=== PATIENT | female | born 1950 | race Caucasian/White ===

== ENCOUNTER 2016-06-07 10:15 | Day surgery (SDC) | payer MEDICARE, BC ==
[2016-06-05 13:53] VITALS: BMI 36.8
[~2016-06-07 10:15] MED LIST: LACTATED RINGERS 1,000 ML IV SCH
[2016-06-07 11:53] VITALS: TEMP 97.7
[2016-06-07] MEDS ORDERED: LIDOCAINE 1% 20 ML VIAL (10MG/ML) FOR IV START INTRADERMA ONE (11:53)
[2016-06-07] MEDS ORDERED: LIDOCAINE 1% INJ 10MG/ML (20 ML MDV) ONE (12:07)
[2016-06-07] MEDS ORDERED: PROPOFOL 10 MG/ML 20 ML VIAL IV ONE (12:07)
--- NOTE | 2016-06-07 12:23 | P.PCN ---
Date of Procedure: 06/07/16 Procedure(s) Performed: BRIEF HISTORY: Patient is a 65-year-old pleasant white female, scheduled for an elective colonoscopy as a part of evaluation of chronic diarrhea for the last 3 weeks' duration. The patient started with acute onset of lower abdominal pain followed by bloody diarrhea of 1 day duration that happened 3 weeks ago. Her bleeding subsided however she continued to have persistent diarrhea with bowel movements anywhere from 5-6 a day. She also complains of intermittent lower abdominal discomfort. PROCEDURE PERFORMED: Colonoscopy with biopsy. PREOPERATIVE DIAGNOSIS: Rectal bleeding and chronic diarrhea. IV sedation per Anesthesia. PROCEDURE: After informed consent was obtained, the patient, was brought into the endoscopy unit. IV conscious sedation was administered by Anesthesia under continuous monitoring. Initially the Olympus CF-160 flexible video colonoscope was then inserted in the rectum, gradually advanced into the cecum without any difficulty. Careful examination was performed as the scope was gradually being withdrawn. Ileocecal valve and the appendiceal orifice were visualized and appeared normal. Prep was excellent. Mucosa of the cecum, ascending colon, transverse colon, descending colon, sigmoid colon, and rectum appeared normal. There were scattered sigmoid diverticula seen. There was a 5 mL polyp in the proximal rectum there was biopsied. Also random biopsies were done from the ascending and descending colon to rule out microscopic/collagenous colitis. Retroflexion was performed in the rectum and no lesions were seen. The patient tolerated the procedure well. IMPRESSION: 5 mm proximal rectal polyp status post removal by biopsy. Scattered sigmoid diverticulosis No evidence of colitis or colorectal neoplasia RECOMMENDATIONS: Findings of this examination were discussed with the patient as well as a family. She was advised to follow with the biopsy results. She can use [id number] Imodium as needed for her symptoms and she will be seen in the office in 3-4 weeks.
[2016-06-07 12:29] VITALS: RESP 18
[2016-06-07 12:41] VITALS: BP 147/85; PULSE 81
--- NOTE | 2016-06-12 08:53 | CDI ---
Dr. Liborio Owens, Due to new rules about charging for conscious sedation, we noted conflicting information about type of sedation between your procedure note (stating IV CONSCIOUS sedation under Procedure heading) and Anesthesia Record which states General anesthesia. Because the word CONSCIOUS now has a different meaning for billing, we need you to stop dictating conscious sedation when Anesthesia is involved on your cases. FOR THIS CASE, WE NEED YOU TO DO ADDENDUM TO YOUR PROCEDURE NOTE THAT SAYS "General anesthesia" instead of CONSCIOUS SEDATION. Thank you bruna much for your assistance with this important billing compliance documentation issue. Sincerely, Darrel Fofana--grant coordinator Adele Walsh MBA, [employer], [facility] Protection Engineer, Dwaine Joyce [phone] [facility] CENTERAnnie
--- NOTE | 2016-07-17 11:52 | OP ---
ADDENDUM: DATE OF SERVICE: 06/07/2016 SURGEON: JEAN PAUL ZACARIAS DO FINISHED CLOTH CHECKER: PREOPERATIVE DIAGNOSIS: POSTOPERATIVE DIAGNOSIS: OPERATION: ANESTHESIA: ESTIMATED BLOOD LOSS: SPECIMENS REMOVED: COMPLICATIONS: OPERATIVE FINDINGS: DESCRIPTION OF PROCEDURE: General anesthesia was utilized instead of IV conscious sedation.
== END 2016-06-07 12:56 | disposition home or self-care (01) ==
LOC: ORWHC2ENDO 10:15
PROVIDERS: ATTEND Internal Medicine Gastroenterology
DX: K62.1 Rectal polyp (principal); K52.839 Microscopic colitis, unspecified; K57.30 Diverticulosis of large intestine without perforation or abscess without bleeding; I10 Essential (primary) hypertension; E66.9 Obesity, unspecified; Z68.36 Body mass index [BMI] 36.0-36.9, adult; Z88.0 Allergy status to penicillin; Z79.82 Long term (current) use of aspirin; Z79.899 Other long term (current) drug therapy; Z87.891 Personal history of nicotine dependence; Z90.49 Acquired absence of other specified parts of digestive tract
CPT/HCPCS: 88305; 88313; 45380; J2001; J2704

== ENCOUNTER → 2016-11-13 | Outpatient (CLI) | payer MEDICARE, BC | END | disposition home or self-care (01) | LOC: LABWHC1 10:56 | PROVIDERS: ATTEND Otolaryngology | DX: K11.7 Disturbances of salivary secretion (principal) | CPT/HCPCS: 36415; 86235 ==

== ENCOUNTER 2016-12-11 08:16 | Day surgery (SDC) | payer MEDICARE, BC ==
[2016-12-06 16:07] VITALS: BMI 36.0
[~2016-12-11 08:16] MED LIST changes: +LIDOCAINE 1% 20 ML VIAL (10MG/ML) FOR IV START INTRADERMA PRN
[2016-12-11 08:46] VITALS: TEMP 97.9
[2016-12-11] MEDS ORDERED: LIDOCAINE 1% 20 ML VIAL (10MG/ML) FOR IV START INTRADERMA ONE (08:53)
[2016-12-11] MEDS ORDERED: PROPOFOL 10 MG/ML 20 ML VIAL IV ONE (09:10)
--- NOTE | 2016-12-11 09:22 | P.GSHP ---
History of Present Illness H&P Date: 12/11/16 Chief Complaint: GERD Patient here today for upper endoscopy. She is recently had some throat soreness. She had thrush. She was advised to have an upper endoscopy for these reasons. She admits to rare episodes of reflux. No significant heartburn. She is able lie flat while sleeping. Some intermittent abdominal pains. Past Medical History Past Medical History: COPD, Hypertension, Osteoarthritis (OA) Additional Past Medical History / Comment(s): HX DIVERTICULOSIS AND COLITIS,, HX POLYP, . STATES TOLD SHE HAS COPD. DDD, NECK PAIN,., ABD CRAMPING. History of Any Multi-Drug Resistant Organisms: None Reported Past Surgical History: Appendectomy, Hernia Repair, Hysterectomy, Joint Replacement Additional Past Surgical History / Comment(s): UMB. HERNIA WITH MESH., LEFT TOTAL KNEE, AYAN CATARACTS Past Anesthesia/Blood Transfusion Reactions: No Reported Reaction Past Psychological History: No Psychological Hx Reported Smoking Status: Former smoker Past Alcohol Use History: Rare Additional Past Alcohol Use History / Comment(s): QUIT SMOKING 05/2016, SMOKED 1PPD OFF AND ON SINCE AGE 18. Past Drug Use History: None Reported - Past Family History Mother Family Medical History: Cancer Medications and Allergies Home Medications Medication Instructions Recorded Confirmed Type Aspirin [Adult Low Dose Aspirin EC] 81 mg PO DAILY 06/05/16 12/11/16 History Indapamide [Lozol] 2.5 mg PO DAILY 06/05/16 12/11/16 History Zolpidem [Ambien] 10 mg PO HS PRN 06/05/16 12/11/16 History Balsalazide Disodium 1,500 mg PO BID-W/MEALS 12/06/16 12/11/16 History Allergies Allergy/AdvReac Type Severity Reaction Status Date / Time perfume Allergy Unknown Dyspnea Verified 12/11/16 08:48 amoxicillin [From Augmentin] Allergy Rash/Hives Verified 12/11/16 08:48 clavulanic acid Allergy Rash/Hives Verified 12/11/16 08:48 [From Augmentin] Surgical - Exam Vital Signs Temp Pulse Resp BP Pulse Ox 97.9 F 85 18 146/83 94 L 12/11/16 08:44 12/11/16 08:44 12/11/16 08:44 12/11/16 08:44 12/11/16 08:44 Physical exam: General: Well-developed, well-nourished HEENT: Normocephalic, sclerae nonicteric Abdomen: Nontender, nondistended Extremities: No edema Neuro: Alert and oriented Assessment and Plan (1) GERD (gastroesophageal reflux disease) Narrative/Plan: Will proceed with upper endoscopy. Status: Acute
--- NOTE | 2016-12-11 09:32 | P.PCN ---
Date of Procedure: 12/11/16 Procedure(s) Performed: Preoperative Dx: GERD Postoperative Dx: Minimal gastritis Procedure: EGD with Bx Anesthesia: Sedation Endoscopist: Dr. Prieto Specimens: Antrum Endoscopic Procedure: The patient was on the endoscopy table in the left decubitus position. The Olympus gastroscope was inserted into the oropharynx and passed under direct visualization to the region of the third portion of the duodenum. From that point the scope was slowly withdrawn inspecting all surfaces carefully. There were no neoplastic inflammatory or polypoid lesions throughout the duodenum. The pylorus was widely patent. The stomach was carefully inspected. There was minimal gastritis present. A biopsy of the antrum took place to rule out H. pylori. Retroflexion revealed a normal hiatus. The esophagus was then carefully examined. There were no neoplastic inflammatory or polypoid lesions throughout the visualized esophagus. The patient was then taken to the recovery room in stable condition per anesthesia guidelines. Recommendations: Await biopsy results. As needed antiacid therapy.
[2016-12-11 09:43] VITALS: RESP 16
[2016-12-11 09:58] VITALS: BP 120/83; PULSE 75
== END 2016-12-11 10:11 | disposition home or self-care (01) ==
LOC: ORWHC2ENDO 08:16
PROVIDERS: ATTEND Surgery
DX: K29.50 Unspecified chronic gastritis without bleeding (principal); K21.9 Gastro-esophageal reflux disease without esophagitis; Z87.19 Personal history of other diseases of the digestive system; Z86.010 Personal history of colon polyps; Z87.891 Personal history of nicotine dependence; J44.9 Chronic obstructive pulmonary disease, unspecified; I10 Essential (primary) hypertension; M19.90 Unspecified osteoarthritis, unspecified site; Z79.82 Long term (current) use of aspirin; Z79.899 Other long term (current) drug therapy; Z88.0 Allergy status to penicillin; Z91.09 Other allergy status, other than to drugs and biological substances
CPT/HCPCS: 88305; 88342; 43239; J2704

== ENCOUNTER → 2017-03-21 | Outpatient (CLI) | payer MEDICARE, BC ==
[2017-03-21 18:08] LABS: Blood Urea Nitrogen 19 mg/dL (7-17)
--- NOTE | 2017-03-23 16:33 | CT ---
EXAMINATION TYPE: CT abdomen pelvis w con DATE OF EXAM: 03/21/2017 HISTORY: Abdominal pain, distention and nausea. CT DLP: 1505.2mGycm Automated Exposure Control for Dose Reduction was Utilized. CONTRAST: CT scan of the abdomen and pelvis is performed with IV Contrast, patient injected with 100 mL of Omni paque 300. COMPARISON: None. FINDINGS: LUNG BASES: Minimal left basilar subsegmental atelectasis is seen. LIVER/GB: No significant abnormality is appreciated. No cholelithiasis or intrahepatic biliary ductal dilatation. PANCREAS: No significant abnormality is seen. No ductal dilatation. SPLEEN: No significant abnormality is seen. No splenomegaly. ADRENALS: Adrenal glands are mildly thickened without discrete nodularity, favored to represent adren al gland hyperplasia. KIDNEYS: 2 mm right upper pole nonobstructing renal calculus is incidentally noted as is a 3 mm left mid to lower pole renal calculus. No hydronephrosis. Kidneys enhance symmetrically. Kidneys excrete s ymmetrically. BOWEL: No dilatation or focal thickening. No evidence of bowel obstruction. UTERUS/ADNEXA: No gross abnormality seen. Ovaries are nonvisualized and may relate to atrophy or surg ical absence. LYMPH NODES: No greater than 1cm abdominal or pelvic lymph nodes are appreciated. OSSEOUS STRUCTURES: Moderate femoral acetabular arthropathy is seen bilaterally with subchondral cyst formation, joint space narrowing and opposing surface sclerosis. Moderate multilevel degenerative ch jorge luis of the thoracolumbar and lumbosacral spine are also noted. IMPRESSION: 1. No significant acute finding is seen to account for patient's clinical symptoms. 2. Bilateral nonobstructing renal calculi. 3. Symmetric thickening of the adrenal glands without discrete nodule, suggestive of adrenal gland hy perplasia. 4. Gallbladder is unremarkable on CT, however given the patient's symptoms HIDA scan with CCK could b e considered to evaluate for biliary dyskinesia and/or chronic cholecystitis.
== END ==
LOC: RADCTMAIN 17:30
PROVIDERS: ATTEND Internal Medicine Hematology & Oncology
DX: N20.0 Calculus of kidney (principal); E27.8 Other specified disorders of adrenal gland; Z88.1 Allergy status to other antibiotic agents
CPT/HCPCS: 82565; 84520; 74177; 36415; Q9967

== ENCOUNTER 2017-06-17 14:55 | Inpatient (IN) | payer MEDICARE, BC ==
--- NOTE | 2017-06-17 17:15 | XR ---
EXAMINATION TYPE: XR chest 2V DATE OF EXAM: 06/17/2017 COMPARISON: NONE HISTORY: Cough and congestion TECHNIQUE: Frontal and lateral views of the chest are obtained. FINDINGS: There is general coarsening of interstitial markings at heart size is normal. There is no pleural effusion. There are no hilar masses. Mediastinum appears normal. IMPRESSION: Coarse pulmonary markings. No pleural effusion or cardiomegaly. This probably relates to some interstitial pneumonia.
[2017-06-17] MEDS ORDERED: RX INFO: IV CONTRAST WAS GIVEN 1 EACH MISC MISCELLANE PRN (18:28)
[2017-06-17] MEDS ORDERED: VANCOMYCIN IV PER PHARMACY 1 EACH MISC MISCELLANE PRN (18:33)
[2017-06-17 18:39] LABS: ALT 41 U/L (9-52); AST 46 U/L (14-36); Albumin 4.4 g/dL (3.5-5.0); Alkaline Phosphatase 75 U/L (38-126); Anion Gap 14 mmol/L; Blood Urea Nitrogen 14 mg/dL (7-17); Calcium 9.6 mg/dL (8.4-10.2); Carbon Dioxide 27 mmol/L (22-30); Chloride 93 mmol/L (98-107); Glucose 166 mg/dL (74-99); Sodium 134 mmol/L (137-145); Total Protein 7.6 g/dL (6.3-8.2)
[2017-06-17 18:42] LABS: Basophils # (A) 0.1 k/uL (0-0.2); Basophils % (A) 0 %; Eosinophils # (A) 0.3 k/uL (0-0.7); Eosinophils % (A) 1 %; HCT 47.9 % (34.0-46.0); Lymphocytes # (A) 2.2 k/uL (1.0-4.8); Lymphocytes % (A) 7 %; MCH 31.4 pg (25.0-35.0); MCHC 33.5 g/dL (31.0-37.0); MCV 93.6 fL (80.0-100.0); Mean Platelet Volume 7.3; Monocytes % (A) 3 %; Neutrophils # (A) 26.8 k/uL (1.3-7.7); Neutrophils % (A) 88 %; Platelet Count 273 k/uL (150-450); RBC 5.11 m/uL (3.80-5.40); RDW 12.1 % (11.5-15.5)
[2017-06-17 18:45] LABS: WBC 30.5 k/uL (3.8-10.6)
--- NOTE | 2017-06-17 18:53 | P.PN ---
Progress Note - Text Progress Note Date: 06/17/17 Patient directly admitted after being seen in clinic today. She complains of shortness of breath and difficulty in breathing that started overnight and has progressively become worse. Initial septic workup placed, supportive care, antibiotics. Monitor vital signs closely and patients respiratory status. Consults placed for Infectious disease and Pulmonary. She has known history of CLL, Chest xray shows interstitial pneumonia, she has been on outpatient antibiotics for a UTI, and prior to that had recent infection in her lower lip that was removed by ENT, completed 14 days of antibiotics (patient unaware of name at this time). Full H and P to follow.
[2017-06-17] MEDS ORDERED: SODIUM CHLORIDE 0.9% 1,000 ML IV SCH (19:00)
[2017-06-17] MEDS: IPRATROPIUM-ALBUTEROL 3 ML NEB INHALATION SCH (19:04)
[2017-06-17] MEDS: DEXTROSE 5%-0.45% NACL 1,000 ML IV SCH (19:54)
[2017-06-17] MEDS ORDERED: VANCOMYCIN 2,000 MG in SODIUM CHLORIDE 0.9% 500 ML IVPB ONE (20:00)
[2017-06-17 20:28] LABS: Magnesium 1.5 mg/dL (1.6-2.3); Uric Acid 4.4 mg/dL (3.7-7.4)
[2017-06-17 20:46] LABS: Glucose,Whole Blood 165 mg/dL (75-99)
[2017-06-17] MEDS: ACETAMINOPHEN TAB 325 MG TAB PO PRN (21:37)
[2017-06-17] MEDS: INSULIN ASPART 100 UNIT/ML 1 ML 10 ML VIAL SQ SCH (21:38)
[2017-06-17] MEDS: NITROFURANTOIN MONOHYD/M-CRYST 100 MG CAP PO SCH (21:40)
[2017-06-17] MEDS: PANTOPRAZOLE 40 MG TABLET PO SCH (21:40)
[2017-06-17] MEDS: ZOLPIDEM 10 MG TAB PO PRN (21:44)
[2017-06-17 22:02] LABS: Appearance,Urine Clear (Clear); Bilirubin,Urine Negative (Negative); Blood,Urine Small (Negative); Color,Urine Yellow; Glucose,Urine (UA) Negative (Negative); Ketones,Urine Negative (Negative); Leukocyte Esterase,Urine Negative (Negative); Nitrite,Urine Negative (Negative); PH, Urine 6.5 (5.0-8.0); Protein,Urine Negative (Negative); RBC,Urine 2 /hpf (0-5); Specific Gravity,Urine 1.005 (1.001-1.035); Squamous Epithelial Cell,Urine <1 /hpf (0-4); Urobilinogen,Urine <2.0 mg/dL (<2.0); WBC,Urine 2 /hpf (0-5)
[2017-06-17] MEDS: methylPREDNISolone SOD SUCCI 125 MG/2 ML VIAL IV SCH (23:40)
[2017-06-18] MEDS ORDERED: PIPERACILLIN-TAZOBACTAM 3.375 GM in DEXTROSE/WATER 1 50ML.BAG IVPB SCH
[2017-06-18] MEDS: IPRATROPIUM-ALBUTEROL 3 ML NEB INHALATION SCH ×7 (00:52→23:15)
[2017-06-18] MEDS: PIPERACILLIN-TAZOBACTAM 3.375 GM VIAL IVPB SCH (01:40)
[2017-06-18] MEDS: VANCOMYCIN 1,750 MG in SODIUM CHLORIDE 0.9% 250 ML IVPB SCH ×2 (05:40→17:05)
[2017-06-18] MEDS: methylPREDNISolone SOD SUCCI 125 MG/2 ML VIAL IV SCH ×4 (05:40→23:06)
[2017-06-18 07:13] LABS: Glucose,Whole Blood 161 mg/dL (75-99)
[2017-06-18] MEDS: BALSALAZIDE DISODIUM 750 MG CAPSULE PO SCH ×2 (07:58→17:04)
[2017-06-18] MEDS: PANTOPRAZOLE 40 MG TABLET PO SCH ×2 (07:58→17:04)
[2017-06-18] MEDS: ASPIRIN 81 MG PO SCH (07:59)
[2017-06-18] MEDS: NITROFURANTOIN MONOHYD/M-CRYST 100 MG CAP PO SCH (07:59)
[2017-06-18] MEDS: INSULIN ASPART 100 UNIT/ML 1 ML 10 ML VIAL SQ SCH ×4 (07:59→21:36)
[2017-06-18 08:33] LABS: Basophils % (A) 0 %; Eosinophils # (A) 0.1 k/uL (0-0.7); Eosinophils % (A) 0 %; HCT 46.4 % (34.0-46.0); HGB 14.9 gm/dL (11.4-16.0); Lymphocytes # (A) 2.5 k/uL (1.0-4.8); Lymphocytes % (A) 10 %; MCH 30.4 pg (25.0-35.0); MCHC 32.1 g/dL (31.0-37.0); MCV 94.7 fL (80.0-100.0); Mean Platelet Volume 7.7; Monocytes # (A) 0.4 k/uL (0-1.0); Monocytes % (A) 2 %; Neutrophils # (A) 20.8 k/uL (1.3-7.7); Neutrophils % (A) 87 %; Platelet Count 273 k/uL (150-450); RDW 12.3 % (11.5-15.5); WBC 23.9 k/uL (3.8-10.6)
[2017-06-18 08:50] LABS: ALT 31 U/L (9-52); AST 36 U/L (14-36); Albumin 3.9 g/dL (3.5-5.0); Alkaline Phosphatase 79 U/L (38-126); Anion Gap 14 mmol/L; Blood Urea Nitrogen 12 mg/dL (7-17); Calcium 9.7 mg/dL (8.4-10.2); Carbon Dioxide 26 mmol/L (22-30); Chloride 100 mmol/L (98-107); Glucose 180 mg/dL (74-99); Potassium 3.7 mmol/L (3.5-5.1); Sodium 140 mmol/L (137-145); Total Bilirubin 0.6 mg/dL (0.2-1.3); Total Protein 6.9 g/dL (6.3-8.2)
[2017-06-18] MEDS ORDERED: INDAPAMIDE 2.5 MG TAB PO SCH (09:00)
[2017-06-18] MEDS ORDERED: PANTOPRAZOLE 40 MG/10 ML VIAL IVP SCH (09:00)
[2017-06-18] MEDS: ENOXAPARIN 40 MG/0.4 ML SYRINGE SQ SCH (09:46)
[2017-06-18] MEDS ORDERED: cefTRIAXone IN SWFI 1,000 MG/10 ML SYRINGE IVP SCH (10:00)
--- NOTE | 2017-06-18 10:36 | P.HPIM ---
History of Present Illness Patient is a pleasant 66-year-old female came in as a direct admit from 's office as she was hypoxic patient doesn't use any oxygen patient is presently on 3 L of oxygen. Patient does smoke actively. Patient is comparing of cough with yellowish greenish sputum production denied any fever chills patient is found to have a leukocytosis neutrophilic leukocytosis patient does have history of chronic lymphocytic leukemia. Patient was complaining of chills but no fever chest x-ray was done which showed a few scores pulmonary markings and concern for interstitial pneumonia because of which patient was admitted patient's leukocytosis improved patient was started on Zosyn which was later discontinued because of her penicillin ALLERGY and patient will be started on a to ceftriaxone and cefepime patient was started on vancomycin I do not believe it's less today but infectious disease was consulted , but infectious disease decide about antibiotics. Patient may need further evaluation for pulmonary embolism with a CAT scan of the chest although pulmonary was consulted because of which led pulmonary decide about the CAT scan. Patient doesn't have any significant wheezing does have diffuse fine crackles consistent with interstitial pneumonia Review of Systems REVIEW OF SYSTEMS: CONSTITUTIONAL: No fever, no malaise, no fatigue. HEENT: No recent visual problems or hearing problems. Denied any sore throat. CARDIOVASCULAR: No chest pain, orthopnea, PND, no palpitations, no syncope. PULMONARY: As described in HPI GASTROINTESTINAL: No diarrhea, no nausea, no vomiting, no abdominal pain. Normoactive bowel sounds. NEUROLOGICAL: No headaches, no weakness, no numbness. HEMATOLOGICAL: Denies any bleeding or petechiae. GENITOURINARY: Denies any burning micturition, frequency, or urgency. MUSCULOSKELETAL/RHEUMATOLOGICAL: Denies any joint pain, swelling, or any muscle pain. ENDOCRINE: Denies any polyuria or polydipsia. The rest of the 14-point review of systems is negative. Past Medical History Past Medical History: Cancer, COPD, Hypertension, Osteoarthritis (OA) Additional Past Medical History / Comment(s): HX DIVERTICULOSIS AND COLITIS,, HX colon POLYP, . STATES TOLD SHE HAS COPD. DDD, NECK PAIN, leukemia History of Any Multi-Drug Resistant Organisms: None Reported Past Surgical History: Appendectomy, Hernia Repair, Hysterectomy, Joint Replacement Additional Past Surgical History / Comment(s): UMB. HERNIA WITH MESH., LEFT TOTAL KNEE, AYAN CATARACTS, egd w/bx "neg" Past Anesthesia/Blood Transfusion Reactions: No Reported Reaction Smoking Status: Current every day smoker - Past Family History Mother Family Medical History: Cancer Father Family Medical History: Myocardial Infarction ([place]) Medications and Allergies Home Medications Medication Instructions Recorded Confirmed Type Aspirin [Adult Low Dose Aspirin EC] 81 mg PO DAILY 06/05/16 06/17/17 History Indapamide [Lozol] 2.5 mg PO DAILY 06/05/16 06/17/17 History Zolpidem [Ambien] 10 mg PO HS PRN 06/05/16 06/17/17 History Balsalazide Disodium 1,500 mg PO BID-W/MEALS 12/06/16 06/17/17 History Nitrofurantoin Monohyd/M-Cryst 100 mg PO Q12HR 06/17/17 06/17/17 History [Macrobid] Omeprazole [PriLOSEC] 40 mg PO BID 06/17/17 06/17/17 History Allergies Allergy/AdvReac Type Severity Reaction Status Date / Time perfume Allergy Unknown Dyspnea Verified 06/17/17 18:36 amoxicillin [From Augmentin] Allergy Rash/Hives Verified 06/17/17 18:36 clavulanic acid Allergy Rash/Hives Verified 06/17/17 18:36 [From Augmentin] Physical Exam Vitals: Vital Signs Temp Pulse Pulse Resp BP Pulse Ox 06/18/17 07:26 96.9 F L 87 17 139/70 96 06/18/17 07:02 110 H 06/18/17 06:52 108 H 06/18/17 06:00 97.5 F L 107 H 17 134/85 93 L 06/18/17 04:46 116 H 06/18/17 04:34 116 H 06/18/17 01:02 112 H 06/18/17 00:52 112 H 06/17/17 23:11 19 06/17/17 22:43 98.2 F 116 H 17 168/69 98 06/17/17 19:17 112 H 06/17/17 19:04 115 H 93 L 06/17/17 18:04 99.1 F 102 H 18 193/74 92 L Intake and Output 06/17/17 06/18/17 06/18/17 22:59 06:59 14:59 Intake Total 1050 1350 Balance 1050 1350 Intake: Intake, IV Titration 550 1100 Amount Sodium Chloride 0.9% 1, 300 600 000 ml @ 75 mls/hr IV . [id number] [facility] Rx#:[id number] Vancomycin 1,750 mg In 250 Sodium Chloride 0.9% 250 ml @ 125 mls/hr IVPB Q12H [facility] Rx#:[id number] Vancomycin 2,000 mg In 500 Sodium Chloride 0.9% 500 ml @ 167 mls/hr IVPB ONCE ONE Rx#:[id number] Oral 500 250 Other: Voiding Method Toilet # Voids 2 2 Weight 98 kg 98 kg PHYSICAL EXAMINATION: GENERAL: The patient is alert and oriented x3, not in any acute distress. Well developed, well nourished. HEENT: Pupils are round and equally reacting to light. EOMI. No scleral icterus. No conjunctival pallor. Normocephalic, atraumatic. No pharyngeal erythema. No thyromegaly. CARDIOVASCULAR: S1 and S2 present. No murmurs, rubs, or gallops. PULMONARY: As fine crackles in the posterior aspect of bilateral lungs predominantly in the right posterior lung kumar ABDOMEN: Soft, nontender, nondistended, normoactive bowel sounds. No palpable organomegaly. MUSCULOSKELETAL: No joint swelling or deformity. EXTREMITIES: No cyanosis, clubbing, or pedal edema. NEUROLOGICAL: Gross neurological examination did not reveal any focal deficits. SKIN: No rashes. Results CBC & Chem 7: 06/18/17 07:31 06/18/17 07:31 Labs: Abnormal Lab Results - Last 24 Hours (Table) 06/17/17 06/17/17 06/17/17 Range/Units 18:01 18:01 18:57 WBC 30.5 H* (3.8-10.6) k/uL Hct 47.9 H (34.0-46.0) % Neutrophils # 26.8 H (1.3-7.7) k/uL Sodium 134 L (137-145) mmol/L Chloride 93 L (98-107) mmol/L Glucose 166 H (74-99) mg/dL POC Glucose (mg/dL) (75-99) mg/dL Magnesium 1.5 L (1.6-2.3) mg/dL AST 46 H (14-36) U/L Lactate Dehydrogenase 694 H (313-618) U/L Urine Blood (Negative) 06/17/17 06/17/17 06/18/17 Range/Units 20:42 21:45 07:11 WBC (3.8-10.6) k/uL Hct (34.0-46.0) % Neutrophils # (1.3-7.7) k/uL Sodium (137-145) mmol/L Chloride (98-107) mmol/L Glucose (74-99) mg/dL POC Glucose (mg/dL) 165 H 161 H (75-99) mg/dL Magnesium (1.6-2.3) mg/dL AST (14-36) U/L Lactate Dehydrogenase (313-618) U/L Urine Blood Small H (Negative) 06/18/17 06/18/17 Range/Units 07:31 07:31 WBC 23.9 H (3.8-10.6) k/uL Hct 46.4 H (34.0-46.0) % Neutrophils # 20.8 H (1.3-7.7) k/uL Sodium (137-145) mmol/L Chloride (98-107) mmol/L Glucose 180 H (74-99) mg/dL POC Glucose (mg/dL) (75-99) mg/dL Magnesium (1.6-2.3) mg/dL AST (14-36) U/L Lactate Dehydrogenase (313-618) U/L Urine Blood (Negative) Thrombosis Risk Factor Assmnt - Choose All That Apply Each Factor Represents 1 point: Abnormal pulmonary function (COPD) Each Risk Factor Represents 2 Points: Age 61-74 years Other congenital or acquired thrombophilia - If yes, enter type in comment: No Thrombosis Risk Factor Assessment Total Risk Factor Score: 3 Thrombosis Risk Factor Assessment Level: Moderate Risk Assessment and Plan Plan: -Hypoxemia and acute hypoxic respiratory failure possibility of interstitial pneumonia, patient was started an above-mentioned antibiotics. Infectious disease and pulmonary were consulted from oncology service. Patient may need a CAT scan to rule out pulmonary embolism. Depression of which will be left to pulmonary service. -Chronic lymphocytic leukemia -COPD without any acute exacerbation - gastroesophageal reflux disease -History of smoking active smoking.
--- NOTE | 2017-06-18 11:34 | P.CONS ---
History of Present Illness - Reason for Consult Consult date: 06/18/17 Febrile, CLL, pneumonia, UTI - History of Present Illness This is a 66-year-old female who was recently diagnosed with CLL. She states she has had her second appointment with Dr. Worthington yesterday and after checking blood work she was told to come in the hospital. She has history that one month ago she had a sore on her lip that she thought was just a cold sore but went to Dr. Schmitz and he removed 2 masses that ended up coming back as benign and one was a stone. She was placed on antibiotics for that. The following week she had some abdominal pain went to the clinic and was given Macrobid bid for urinary tract infection for 10 day course and she has 2 half days left. Patient states that she feels tired and has had sweats at nighttime for the past 2 nights. She has a cough that is mostly nonproductive but occasionally clear sputum. She also has decreased appetite with nausea without vomiting. She has a history of frequent episodes of bronchitis and usually something like perfumes or plants will cause exacerbation. Patient was directly admitted to the [facility] floor was found to have a temperature max of 99.1, white count was 30.5, heart rate 112 to 1:15. Magnesium was 1.5, creatinine 0.57, AST 46, LDH 694, influenza testing was negative. Urinalysis was clear, blood small. Chest x-ray showed coarse pulmonary markings. No pleural effusion or cardiomegaly. Probable interstitial pneumonia. There is a consult in place with pulmonary medicine and hospitalist for medical management. Review of Systems All systems: negative Constitutional: Reports anorexia, Reports fatigue, Reports malaise, Reports poor appetite, Reports sweats, Reports weakness, Denies chills, Denies fever Eyes: denies blurred vision, denies pain Ears, nose, mouth and throat: Denies dental pain, Denies headache, Denies mouth pain, Denies sore throat Cardiovascular: Reports lightheadedness, Denies chest pain, Denies decreased exercise tolerance, Denies dyspnea on exertion, Denies edema, Denies leg edema, Denies shortness of breath, Denies syncope Respiratory: Reports cough, Reports cough with sputum, Denies dyspnea, Denies excessive sputum, Denies hemoptysis, Denies home oxygen, Denies wheezing Gastrointestinal: Reports nausea, Denies abdominal pain, Denies diarrhea, Denies vomiting Genitourinary: Denies dysuria, Denies hematuria, Denies urgency Musculoskeletal: Denies myalgias Integumentary: Denies pruritus, Denies rash Neurological: Denies numbness, Denies weakness Psychiatric: Denies anxiety, Denies depression Endocrine: Denies fatigue, Denies weight change Past Medical History Past Medical History: Cancer, COPD, Hypertension, Osteoarthritis (OA) Additional Past Medical History / Comment(s): HX DIVERTICULOSIS AND COLITIS,, HX colon POLYP, . STATES TOLD SHE HAS COPD. DDD, NECK PAIN, leukemia History of Any Multi-Drug Resistant Organisms: None Reported Past Surgical History: Appendectomy, Hernia Repair, Hysterectomy, Joint Replacement Additional Past Surgical History / Comment(s): UMB. HERNIA WITH MESH., LEFT TOTAL KNEE, AYAN CATARACTS, egd w/bx "neg" Past Anesthesia/Blood Transfusion Reactions: No Reported Reaction Smoking Status: Current every day smoker Additional Past Alcohol Use History / Comment(s): Patient is a smoker on and off since age 18 and currently smoking 8 cigarettes per day. She recently quit for 4 months. No illicit drug use. No alcohol abuse. She worked in [employer] and is currently retired. - Past Family History Mother Family Medical History: Cancer Father Family Medical History: Myocardial Infarction ([place]) Medications and Allergies Home Medications Medication Instructions Recorded Confirmed Type Aspirin [Adult Low Dose Aspirin EC] 81 mg PO DAILY 06/05/16 06/17/17 History Indapamide [Lozol] 2.5 mg PO DAILY 06/05/16 06/17/17 History Zolpidem [Ambien] 10 mg PO HS PRN 06/05/16 06/17/17 History Balsalazide Disodium 1,500 mg PO BID-W/MEALS 12/06/16 06/17/17 History Nitrofurantoin Monohyd/M-Cryst 100 mg PO Q12HR 06/17/17 06/17/17 History [Macrobid] Omeprazole [PriLOSEC] 40 mg PO BID 06/17/17 06/17/17 History Allergies Allergy/AdvReac Type Severity Reaction Status Date / Time perfume Allergy Unknown Dyspnea Verified 06/17/17 18:36 amoxicillin [From Augmentin] Allergy Rash/Hives Verified 06/17/17 18:36 clavulanic acid Allergy Rash/Hives Verified 06/17/17 18:36 [From Augmentin] Physical Exam Vitals: Vital Signs Temp Pulse Pulse Resp BP Pulse Ox 06/18/17 07:26 96.9 F L 87 17 139/70 96 06/18/17 07:02 110 H 06/18/17 06:52 108 H 06/18/17 06:00 97.5 F L 107 H 17 134/85 93 L 06/18/17 04:46 116 H 06/18/17 04:34 116 H 06/18/17 01:02 112 H 06/18/17 00:52 112 H 06/17/17 23:11 19 06/17/17 22:43 98.2 F 116 H 17 168/69 98 06/17/17 19:17 112 H 06/17/17 19:04 115 H 93 L 06/17/17 18:04 99.1 F 102 H 18 193/74 92 L Intake and Output 06/17/17 06/18/17 06/18/17 22:59 06:59 14:59 Intake Total 1050 1350 Balance 1050 1350 Intake: Intake, IV Titration 550 1100 Amount Sodium Chloride 0.9% 1, 300 600 000 ml @ 75 mls/hr IV . [id number] [facility] Rx#:[id number] Vancomycin 1,750 mg In 250 Sodium Chloride 0.9% 250 ml @ 125 mls/hr IVPB Q12H [facility] Rx#:[id number] Vancomycin 2,000 mg In 500 Sodium Chloride 0.9% 500 ml @ 167 mls/hr IVPB ONCE ONE Rx#:[id number] Oral 500 250 Other: Voiding Method Toilet # Voids 2 2 Weight 98 kg 98 kg Gen: This is a 66-year-old female. She is sitting up in bed and appears to be comfortable. She does not appear to be in any acute respiratory distress. HEENT: Head is atraumatic, normocephalic. Pupils equal, round. Sclerae is anicteric. Conjunctiva pink. Mucous members of the mouth are moist. Lesions on her lower lip are completely healed with no signs of infection. NECK: Supple. No JVD. No lymphadenopathy. No thyromegaly. LUNGS: Bilateral lower rhonchi increased on the right. No intercostal retractions. HEART: Regular rate and rhythm. No murmur. ABDOMEN: Soft. Bowel sounds are present. No masses. No tenderness. EXTREMITIES: No pedal edema. No calf tenderness. Dorsalis pedis +2 bilaterally. NEUROLOGICAL: Patient is awake, alert and oriented x3. Cranial nerves 2 through 12 are grossly intact. Results Results: Laboratory Results WBC 23.9 k/uL (3.8-10.6) H 06/18/17 07:31 RBC 4.90 m/uL (3.80-5.40) 06/18/17 07:31 Hgb 14.9 gm/dL (11.4-16.0) 06/18/17 07:31 Hct 46.4 % (34.0-46.0) H 06/18/17 07:31 MCV 94.7 fL (80.0-100.0) 06/18/17 07:31 MCH 30.4 pg (25.0-35.0) 06/18/17 07:31 MCHC 32.1 g/dL (31.0-37.0) 06/18/17 07:31 RDW 12.3 % (11.5-15.5) 06/18/17 07:31 Plt Count 273 k/uL (150-450) 06/18/17 07:31 Neutrophils % 87 % 06/18/17 07:31 Lymphocytes % 10 % 06/18/17 07:31 Monocytes % 2 % 06/18/17 07:31 Eosinophils % 0 % 06/18/17 07:31 Basophils % 0 % 06/18/17 07:31 Neutrophils # 20.8 k/uL (1.3-7.7) H 06/18/17 07:31 Lymphocytes # 2.5 k/uL (1.0-4.8) 06/18/17 07:31 Monocytes # 0.4 k/uL (0-1.0) 06/18/17 07:31 Eosinophils # 0.1 k/uL (0-0.7) 06/18/17 07:31 Basophils # 0.0 k/uL (0-0.2) 06/18/17 07:31 Sodium 140 mmol/L (137-145) 06/18/17 07:31 Potassium 3.7 mmol/L (3.5-5.1) 06/18/17 07:31 Chloride 100 mmol/L (98-107) 06/18/17 07:31 Carbon Dioxide 26 mmol/L (22-30) 06/18/17 07:31 Anion Gap 14 mmol/L 06/18/17 07:31 BUN 12 mg/dL (7-17) 06/18/17 07:31 Creatinine 0.52 mg/dL (0.52-1.04) 06/18/17 07:31 Est GFR (CKD-EPI)AfAm >90 (>60 ml/min/1.73 sqM) 06/18/17 07:31 Est GFR (CKD-EPI)NonAf >90 (>60 ml/min/1.73 sqM) 06/18/17 07:31 Glucose 180 mg/dL (74-99) H 06/18/17 07:31 POC Glucose (mg/dL) 161 mg/dL (75-99) H 06/18/17 07:11 POC Glu Fire Extinguisher Mechanic ID Michelle Jacob 06/18/17 07:11 Plasma Lactic Acid Jose 1.5 mmol/L (0.7-2.0) 06/17/17 18:57 Uric Acid 4.4 mg/dL (3.7-7.4) 06/17/17 18:57 Calcium 9.7 mg/dL (8.4-10.2) 06/18/17 07:31 Magnesium 1.5 mg/dL (1.6-2.3) L 06/17/17 18:57 Total Bilirubin 0.6 mg/dL (0.2-1.3) 06/18/17 07:31 AST 36 U/L (14-36) 06/18/17 07:31 ALT 31 U/L (9-52) 06/18/17 07:31 Alkaline Phosphatase 79 U/L (38-126) 06/18/17 07:31 Lactate Dehydrogenase 694 U/L (313-618) H 06/17/17 18:57 Total Protein 6.9 g/dL (6.3-8.2) 06/18/17 07:31 Albumin 3.9 g/dL (3.5-5.0) 06/18/17 07:31 Urine Color Yellow 06/17/17 21:45 Urine Appearance Clear (Clear) 06/17/17 21:45 Urine pH 6.5 (5.0-8.0) 06/17/17 21:45 Ur Specific [place] 1.005 (1.001-1.035) 06/17/17 21:45 Urine Protein Negative (Negative) 06/17/17 21:45 Urine Glucose (UA) Negative (Negative) 06/17/17 21:45 Urine Ketones Negative (Negative) 06/17/17 21:45 Urine Blood Small (Negative) H 06/17/17 21:45 Urine Nitrite Negative (Negative) 06/17/17 21:45 Urine Bilirubin Negative (Negative) 06/17/17 21:45 Urine Urobilinogen <2.0 mg/dL (<2.0) 06/17/17 21:45 Ur Leukocyte Esterase Negative (Negative) 06/17/17 21:45 Urine RBC 2 /hpf (0-5) 06/17/17 21:45 Urine WBC 2 /hpf (0-5) 06/17/17 21:45 Ur Squamous Epith Cells <1 /hpf (0-4) 06/17/17 21:45 Influenza Type A RNA Not Detected (Not Detectd) 06/17/17 20:07 Influenza Type B (PCR) Not Detected (Not Detectd) 06/17/17 20:07 CBC & Chem 7: 06/18/17 07:31 06/19/17 07:07 Labs: Abnormal Lab Results - Last 24 Hours (Table) 06/17/17 06/17/17 06/17/17 Range/Units 18:01 18:01 18:57 WBC 30.5 H* (3.8-10.6) k/uL Hct 47.9 H (34.0-46.0) % Neutrophils # 26.8 H (1.3-7.7) k/uL Sodium 134 L (137-145) mmol/L Chloride 93 L (98-107) mmol/L Glucose 166 H (74-99) mg/dL POC Glucose (mg/dL) (75-99) mg/dL Magnesium 1.5 L (1.6-2.3) mg/dL AST 46 H (14-36) U/L Lactate Dehydrogenase 694 H (313-618) U/L Urine Blood (Negative) 06/17/17 06/17/17 06/18/17 Range/Units 20:42 21:45 07:11 WBC (3.8-10.6) k/uL Hct (34.0-46.0) % Neutrophils # (1.3-7.7) k/uL Sodium (137-145) mmol/L Chloride (98-107) mmol/L Glucose (74-99) mg/dL POC Glucose (mg/dL) 165 H 161 H (75-99) mg/dL Magnesium (1.6-2.3) mg/dL AST (14-36) U/L Lactate Dehydrogenase (313-618) U/L Urine Blood Small H (Negative) 06/18/17 06/18/17 Range/Units 07:31 07:31 WBC 23.9 H (3.8-10.6) k/uL Hct 46.4 H (34.0-46.0) % Neutrophils # 20.8 H (1.3-7.7) k/uL Sodium (137-145) mmol/L Chloride (98-107) mmol/L Glucose 180 H (74-99) mg/dL POC Glucose (mg/dL) (75-99) mg/dL Magnesium (1.6-2.3) mg/dL AST (14-36) U/L Lactate Dehydrogenase (313-618) U/L Urine Blood (Negative) Assessment and Plan Plan: This is a 66-year-old female with history of CLL on the care of Dr. Sierra. She is not on chemotherapy. She has had recent treatment for benign masses in the lower lip status post resection and antibiotic course. Most recently treated for urinary tract infection with Macrobid. Patient presents with sepsis with leukocytosis and tachycardia secondary to pneumonia. She has been started on vancomycin, Solu-Medrol and continued on Macrobid. Antibiotics will be changed to Levaquin only. Continue supportive care. Further recommendations as patient progresses. The above dictated assessment and findings were discussed with Dr. Chandler. The impression and plan of care have been directed as dictated. Alejandra Florentino nurse practitioner acting as scribe for Dr. Chandler.
[2017-06-18 11:59] LABS: Glucose,Whole Blood 174 mg/dL (75-99)
--- NOTE | 2017-06-18 12:37 | P.CNPUL ---
History of Present Illness Consult date: 06/18/17 Reason for consult: dyspnea, cough, COPD, hypoxemia, pneumonia, abnormal CXR/CT Chief complaint: Shortness of breath and cough History of present illness: Consult dated 06/18/2017 This is a 66-year-old female who was seen by the oncologist yesterday in his office. The patient apparently has a recent diagnosis of chronic lymphocytic leukemia and was going to talk to the oncologist about treatment options. Apparently when she arrived in the office, she was short of breath. Her saturations were low. She was coughing up producing yellow-green phlegm. She apparently also just a lot of chest congestion. For that reason, she was sent over to the hospital as a direct admission. She was started on antibiotics. I' m asked to see her for possible pneumonia. She is a heavy smoker. She's been smoking a number of years. The patient has quit on and off. Anyway the patient 's chest x-ray showed a possible minimal infiltrate in the right lower lobe. It was certainly not very impressive. In addition, her cough was reminiscent of somebody with tracheobronchomalacia. Anyway, the patient is here for our evaluation. I did tell her that the evaluation and treatment with consist of 2 things, acute treatment of what appears to be a COPD exacerbation complicated by purulent tracheobronchitis and possible bronchopneumonia right lower lobe and also treatment for COPD which would better assessed in the outpatient setting. 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 Past Medical History Past Medical History: Cancer, COPD, Hypertension, Osteoarthritis (OA) Additional Past Medical History / Comment(s): HX DIVERTICULOSIS AND COLITIS,, HX colon POLYP, . STATES TOLD SHE HAS COPD. DDD, NECK PAIN, leukemia History of Any Multi-Drug Resistant Organisms: None Reported Past Surgical History: Appendectomy, Hernia Repair, Hysterectomy, Joint Replacement Additional Past Surgical History / Comment(s): UMB. HERNIA WITH MESH., LEFT TOTAL KNEE, AYAN CATARACTS, egd w/bx "neg" Past Anesthesia/Blood Transfusion Reactions: No Reported Reaction Smoking Status: Current every day smoker Additional Past Alcohol Use History / Comment(s): Patient is a smoker on and off since age 18 and currently smoking 8 cigarettes per day. She recently quit for 4 months. No illicit drug use. No alcohol abuse. 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 - Past Family History Mother Family Medical History: Cancer Father Family Medical History: Myocardial Infarction ([place]) Medications and Allergies Home Medications Medication Instructions Recorded Confirmed Type Aspirin [Adult Low Dose Aspirin EC] 81 mg PO DAILY 06/05/16 06/17/17 History Indapamide [Lozol] 2.5 mg PO DAILY 06/05/16 06/17/17 History Zolpidem [Ambien] 10 mg PO HS PRN 06/05/16 06/17/17 History Balsalazide Disodium 1,500 mg PO BID-W/MEALS 12/06/16 06/17/17 History Nitrofurantoin Monohyd/M-Cryst 100 mg PO Q12HR 06/17/17 06/17/17 History [Macrobid] Omeprazole [PriLOSEC] 40 mg PO BID 06/17/17 06/17/17 History Allergies Allergy/AdvReac Type Severity Reaction Status Date / Time perfume Allergy Unknown Dyspnea Verified 06/17/17 18:36 amoxicillin [From Augmentin] Allergy Rash/Hives Verified 06/17/17 18:36 clavulanic acid Allergy Rash/Hives Verified 06/17/17 18:36 [From Augmentin] Physical Exam Osteopathic Statement: *. No significant issues noted on an osteopathic structural exam other than those noted in the History and Physical/Consult. Vitals: Vital Signs Temp Pulse Pulse Resp BP Pulse Ox 06/18/17 11:06 104 H 06/18/17 11:00 97.0 F L 73 20 109/59 95 06/18/17 10:56 104 H 06/18/17 07:26 96.9 F L 87 17 139/70 96 06/18/17 07:02 110 H 06/18/17 06:52 108 H 06/18/17 06:00 97.5 F L 107 H 17 134/85 93 L 06/18/17 04:46 116 H 06/18/17 04:34 116 H 06/18/17 01:02 112 H 06/18/17 00:52 112 H 06/17/17 23:11 19 06/17/17 22:43 98.2 F 116 H 17 168/69 98 06/17/17 19:17 112 H 06/17/17 19:04 115 H 93 L 06/17/17 18:04 99.1 F 102 H 18 193/74 92 L Intake and Output 06/17/17 06/18/17 06/18/17 22:59 06:59 14:59 Intake Total 1050 1350 Balance 1050 1350 Intake: Intake, IV Titration 550 1100 Amount Sodium Chloride 0.9% 1, 300 600 000 ml @ 75 mls/hr IV . [id number] [facility] Rx#:[id number] Vancomycin 1,750 mg In 250 Sodium Chloride 0.9% 250 ml @ 125 mls/hr IVPB Q12H [facility] Rx#:[id number] Vancomycin 2,000 mg In 500 Sodium Chloride 0.9% 500 ml @ 167 mls/hr IVPB ONCE ONE Rx#:[id number] Oral 500 250 Other: Voiding Method Toilet # Voids 2 2 Weight 98 kg 98 kg No acute distress, oriented 3. Frequent barking congested vibratory cough reminiscent of tracheomalacia. HEENT examination is grossly unremarkable. Mucous membranes are moist. No oral lesions. Neck supple. Full range of motion. No adenopathy thyromegaly or neck vein distention. Cardiovascular examination reveals regular rhythm rate. S1-S2 normal. No S3 or S4. No discernible murmur noted. Lungs reveal diffuse coarse rhonchi. Breath sounds are equal but diminished throughout. Slight prolongation on forced maneuver. No crackles. Some expiratory wheezes noted. Abdomen soft bowel sounds are heard. No masses or tenderness. Extremities are intact. No cyanosis clubbing or edema. Skin is without rash or lesion. Neurologic examination is brief but nonfocal. Results - Laboratory Findings CBC and BMP: 06/18/17 07:31 06/18/17 07:31 Abnormal lab findings: Abnormal Labs 06/17/17 06/17/17 06/17/17 18:01 18:01 18:57 WBC 30.5 H* Hct 47.9 H Neutrophils # 26.8 H Sodium 134 L Chloride 93 L Glucose 166 H POC Glucose (mg/dL) Magnesium 1.5 L AST 46 H Lactate Dehydrogenase 694 H Urine Blood 06/17/17 06/17/17 06/18/17 20:42 21:45 07:11 WBC Hct Neutrophils # Sodium Chloride Glucose POC Glucose (mg/dL) 165 H 161 H Magnesium AST Lactate Dehydrogenase Urine Blood Small H 06/18/17 06/18/17 06/18/17 07:31 07:31 11:58 WBC 23.9 H Hct 46.4 H Neutrophils # 20.8 H Sodium Chloride Glucose 180 H POC Glucose (mg/dL) 174 H Magnesium AST Lactate Dehydrogenase Urine Blood - Diagnostic Findings Chest x-ray: image reviewed (Labs x-rays and medications are all reviewed.) Assessment and Plan Assessment: Assessment COPD exacerbation complicated by purulent tracheobronchitis and possible bronchopneumonia right lower lobe History of recently diagnosed chronic lymphocytic leukemia History of hypertension DJD by history History of diverticular disease and colitis Previous history of hernia repair, hysterectomy, joint replacement Previous history of heavy tobacco use Plan: Plan dated 06/18/2017 The patient's medications x-rays and labs are reviewed. She may have a minimal infiltrate at the right lower lobe. She certainly has COPD from previous heavy tobacco use. She also may have some tracheobronchomalacia. Her treatment will consist of an acute phase here in the hospital and then chronic phase in the office with PFTs and evaluation. Additional recommendations and suggestions are forthcoming. Recurrent sure to stop smoking. We counseled her to stop smoking. Time with Patient: Greater than 30
[2017-06-18] MEDS: DEXTROSE 5%-0.45% NACL 1,000 ML IV SCH ×2 (12:48→21:36)
[2017-06-18] MEDS: LEVOFLOXACIN 750MG-D5W PMX 750 MG in DEXTROSE/WATER 1 150ML.BAG IVPB SCH (12:48)
[2017-06-18] MEDS: ACETAMINOPHEN TAB 325 MG TAB PO PRN (15:30)
[2017-06-18 17:19] LABS: Glucose,Whole Blood 195 mg/dL (75-99)
--- NOTE | 2017-06-18 17:59 | P.CONS ---
History of Present Illness - Reason for Consult Consult date: 06/18/17 CLL Requesting physician: Lorna Ureña - Chief Complaint Shortness of Breath, Fever - History of Present Illness Kari was originally referred to Dr. Hartmann for evaluation of chronic Leukocytosis which was present for at least 2-3 years and unchanged. She was found to have Lymphocytic colitis and gastritis, denies fever or chills but admitted having moderate night sweats. She later was diagnosed with CLL, she has been on surveillance since, not requiring treatment. She presented to office yesterday for her regular scheduled follow-up, she started the night prior with a cough and increased shortness of breath, and by the time she presented to the clinic was severely short of breath requiring oxygen to hold her saturation above 90%. She has never required oxygen in the past. Ashley had a procedure performed three weeks ago on her lower lips and was on antibiotics for this, more recently seen by her PCP for a UTI and has taken 5 days of antibiotic of 10 for this. Treatment with Nifuratoin. She has a productive cough , low grade fever. Chest xray reveals interstitial pneumonia and she was sent to hospital directly admitted and started on supportive care breathing treatments, vancomycin, zosyn, steroids, PPI. A full septic work-up was performed prior to antibiotic initiation. Today during follow-up she is doing much better, her lungs sound better, requiring less oxygen and fevers have improved. Review of Systems A 14 point review of systems assessed and completed and all negative except HPI Past Medical History Past Medical History: Cancer, COPD, Hypertension, Osteoarthritis (OA) Additional Past Medical History / Comment(s): HX DIVERTICULOSIS AND COLITIS,, HX colon POLYP, . STATES TOLD SHE HAS COPD. DDD, NECK PAIN, leukemia History of Any Multi-Drug Resistant Organisms: None Reported Past Surgical History: Appendectomy, Hernia Repair, Hysterectomy, Joint Replacement Additional Past Surgical History / Comment(s): UMB. HERNIA WITH MESH., LEFT TOTAL KNEE, AYAN CATARACTS, egd w/bx "neg" Past Anesthesia/Blood Transfusion Reactions: No Reported Reaction Smoking Status: Current every day smoker Additional Past Alcohol Use History / Comment(s): Patient is a smoker on and off since age 18 and currently smoking 8 cigarettes per day. She recently quit for 4 months. No illicit drug use. No alcohol abuse. 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 - Past Family History Mother Family Medical History: Cancer Father Family Medical History: Myocardial Infarction ([place]) Medications and Allergies Home Medications Medication Instructions Recorded Confirmed Type Aspirin [Adult Low Dose Aspirin EC] 81 mg PO DAILY 06/05/16 06/17/17 History Indapamide [Lozol] 2.5 mg PO DAILY 06/05/16 06/17/17 History Zolpidem [Ambien] 10 mg PO HS PRN 06/05/16 06/17/17 History Balsalazide Disodium 1,500 mg PO BID-W/MEALS 12/06/16 06/17/17 History Nitrofurantoin Monohyd/M-Cryst 100 mg PO Q12HR 06/17/17 06/17/17 History [Macrobid] Omeprazole [PriLOSEC] 40 mg PO BID 06/17/17 06/17/17 History Allergies Allergy/AdvReac Type Severity Reaction Status Date / Time perfume Allergy Unknown Dyspnea Verified 06/17/17 18:36 amoxicillin [From Augmentin] Allergy Rash/Hives Verified 06/17/17 18:36 clavulanic acid Allergy Rash/Hives Verified 06/17/17 18:36 [From Augmentin] Physical Exam Vitals: Vital Signs Temp Pulse Pulse Pulse Resp BP Pulse Ox 06/18/17 15:25 104 H 06/18/17 15:14 100 06/18/17 15:00 97.8 F 83 16 163/73 94 L 06/18/17 11:06 104 H 06/18/17 11:00 97.0 F L 73 20 109/59 95 06/18/17 10:56 104 H 06/18/17 07:26 96.9 F L 87 17 139/70 96 06/18/17 07:02 110 H 06/18/17 06:52 108 H 06/18/17 06:00 97.5 F L 107 H 17 134/85 93 L 06/18/17 04:46 116 H 06/18/17 04:34 116 H 06/18/17 01:02 112 H 06/18/17 00:52 112 H 06/17/17 23:11 19 06/17/17 22:43 98.2 F 116 H 17 168/69 98 06/17/17 19:17 112 H 06/17/17 19:04 115 H 93 L 06/17/17 18:04 99.1 F 102 H 18 193/74 92 L Intake and Output 06/18/17 06/18/17 06/18/17 06:59 14:59 22:59 Intake Total 1350 575 Balance 1350 575 Intake: Intake, IV Titration 1100 575 Amount Levofloxacin 750Mg-D5w 150 Pmx 750 mg In Dextrose/ Water 1 150ml.bag @ 100 mls/hr IVPB Q24H [facility] Rx#: [id number] Piperacillin-Tazobactam 3 50 .375 gm In Dextrose/Water 1 50ml.bag @ 12.5 mls/hr IVPB Q8HR [facility] Rx#: [id number] Sodium Chloride 0.9% 1, 600 375 000 ml @ 75 mls/hr IV . [id number] [facility] Rx#:[id number] Vancomycin 2,000 mg In 500 Sodium Chloride 0.9% 500 ml @ 167 mls/hr IVPB ONCE ONE Rx#:[id number] Oral 250 Other: Voiding Method Toilet Toilet # Voids 2 Weight 98 kg - Constitutional General appearance: average body habitus, cooperative, no acute distress - EENT Eyes: EOMI, dentition normal ENT: NA/AT, normal oropharynx - Neck Supple, Trachea midline Neck: normal ROM - Respiratory Respiratory: bilateral: diminished (lower lobes, no wheezes or increased effort) - Cardiovascular Rhythm: regular Heart sounds: normal: S1, S2 - Gastrointestinal General gastrointestinal: normal bowel sounds, soft - Integumentary Integumentary: pale - Neurologic Neurologic: CNII-XII intact - Musculoskeletal Musculoskeletal: gait normal, strength equal bilaterally - Psychiatric Psychiatric: A&O x's 3, appropriate affect, intact judgment & insight Results CBC & Chem 7: 06/18/17 07:31 06/18/17 07:31 Labs: Abnormal Lab Results - Last 24 Hours (Table) 06/17/17 06/17/17 06/17/17 Range/Units 18:01 18:01 18:57 WBC 30.5 H* (3.8-10.6) k/uL Hct 47.9 H (34.0-46.0) % Neutrophils # 26.8 H (1.3-7.7) k/uL Sodium 134 L (137-145) mmol/L Chloride 93 L (98-107) mmol/L Glucose 166 H (74-99) mg/dL POC Glucose (mg/dL) (75-99) mg/dL Magnesium 1.5 L (1.6-2.3) mg/dL AST 46 H (14-36) U/L Lactate Dehydrogenase 694 H (313-618) U/L Urine Blood (Negative) 06/17/17 06/17/17 06/18/17 Range/Units 20:42 21:45 07:11 WBC (3.8-10.6) k/uL Hct (34.0-46.0) % Neutrophils # (1.3-7.7) k/uL Sodium (137-145) mmol/L Chloride (98-107) mmol/L Glucose (74-99) mg/dL POC Glucose (mg/dL) 165 H 161 H (75-99) mg/dL Magnesium (1.6-2.3) mg/dL AST (14-36) U/L Lactate Dehydrogenase (313-618) U/L Urine Blood Small H (Negative) 06/18/17 06/18/17 06/18/17 Range/Units 07:31 07:31 11:58 WBC 23.9 H (3.8-10.6) k/uL Hct 46.4 H (34.0-46.0) % Neutrophils # 20.8 H (1.3-7.7) k/uL Sodium (137-145) mmol/L Chloride (98-107) mmol/L Glucose 180 H (74-99) mg/dL POC Glucose (mg/dL) 174 H (75-99) mg/dL Magnesium (1.6-2.3) mg/dL AST (14-36) U/L Lactate Dehydrogenase (313-618) U/L Urine Blood (Negative) 06/18/17 Range/Units 17:13 WBC (3.8-10.6) k/uL Hct (34.0-46.0) % Neutrophils # (1.3-7.7) k/uL Sodium (137-145) mmol/L Chloride (98-107) mmol/L Glucose (74-99) mg/dL POC Glucose (mg/dL) 195 H (75-99) mg/dL Magnesium (1.6-2.3) mg/dL AST (14-36) U/L Lactate Dehydrogenase (313-618) U/L Urine Blood (Negative) Microbiology - Last 24 Hours (Table) 06/17/17 21:45 Urine Culture - Preliminary Urine,Clean Catch Abdominal x-ray: report reviewed Assessment and Plan (1) CLL (chronic lymphocytic leukemia) Current Visit: Yes Status: Acute Code(s): C91.90 - LYMPHOID LEUKEMIA, UNSPECIFIED NOT HAVING ACHIEVED REMISSION SNOMED Code(s): 23347347 (2) UTI (urinary tract infection) Current Visit: Yes Status: Acute Code(s): N39.0 - URINARY TRACT INFECTION, SITE NOT SPECIFIED SNOMED Code(s): 24235162 (3) Acute respiratory insufficiency Current Visit: Yes Status: Acute Code(s): R06.89 - OTHER ABNORMALITIES OF BREATHING SNOMED Code(s): 306217388 Plan: Assessment and Recs: 1. Chronic Lymphocytic Leukemia: - Continues on monitoring, not required treatment at this point, follow-up with Dr. Hartmann as outpatient - Check IGG levels as IVIG may help her fight inferction and can be low in patients with underlying CLL 2. Acute Respiratory Insufficiency: - Likely secondary to Pneumonia - She was on Nitrofurantoin for UTI - Potential for pneumonitis - COPD Exacerbation secondary to history of detention tobacco dependence - Supportive care with steroids, breathing treatments, ABx and pulmonary following 3. Fevers - Improved 4. Recent UTI 5. Pneumonia - May have signs of interstial pneumonia - Per Pulmonary Physicain Attestations: I have completed the full history and physical on this patient and discussed and agree with dictation by Anna Hinojosa STORY TELLER, Dictated as a scribe
[2017-06-18] MEDS: FORMOTEROL FUMARATE 20 MCG/2 ML NEBU INHALATION SCH (19:20)
[2017-06-18] MEDS: BUDESONIDE 1 MG/2 ML NEBU INHALATION SCH (19:20)
[2017-06-18 20:08] LABS: Hemoglobin A1C 6.1 % (4.0-6.0)
[2017-06-18 20:34] LABS: Glucose,Whole Blood 211 mg/dL (75-99)
[2017-06-18] MEDS: ZOLPIDEM 10 MG TAB PO PRN (23:05)
--- NOTE | 2017-06-19 00:14 | P.CON ---
Consult Note - . Consult date: 06/18/17 Assessment/Plan:: This is a 66-year-old female who was recently diagnosed with CLL. She states she has had her second appointment with Dr. Worthington yesterday and after checking blood work she was told to come in the hospital. She has history that one month ago she had a sore on her lip that she thought was just a cold sore but went to Dr. Schmitz and he removed 2 masses that ended up coming back as benign and one was a stone. She was placed on antibiotics for that. The following week she had some abdominal pain went to the clinic and was given Macrobid bid for urinary tract infection for 10 day course and she has 2 half days left. Patient states that she feels tired and has had sweats at nighttime for the past 2 nights. She has a cough that is mostly nonproductive but occasionally clear sputum. She also has decreased appetite with nausea without vomiting. She has a history of frequent episodes of bronchitis and usually something like perfumes or plants will cause exacerbation. Patient was directly admitted to the [facility] floor was found to have a temperature max of 99.1, white count was 30.5, heart rate 112 to 115. Magnesium was 1.5, creatinine 0.57, AST 46, LDH 694, influenza testing was negative. Urinalysis was clear, blood small. Chest x-ray showed coarse pulmonary markings. No pleural effusion or cardiomegaly. Probable interstitial pneumonia. There is a consult in place with pulmonary medicine and hospitalist for medical management. Please see the consult note is dictated by nurse practitioner Mrs. Alejandra Florentino. 66-year-old woman who has a history of CLL has not yet been placed on chemotherapy presented to her oncologist office but was found evidence of significant shortness of breath. Appear to be having exacerbation of COPD with concerns to underlying pneumonia. Chest x-ray shows likely interstitial pneumonitis. Antibiotic therapy is being streamline at this point in time, levofloxacin as mono therapy should be adequate given her significant improvements. Patient does desire to fly this coming weekend it would ask for pulmonology to ensure that they believe she is capable of flying a pressurized jet. I agree with evaluation, assessment and plan as dictated by nurse practitioner Mrs. Alejandra Florentino.
[2017-06-19] MEDS: IPRATROPIUM-ALBUTEROL 3 ML NEB INHALATION SCH ×5 (03:12→19:49)
[2017-06-19] MEDS: VANCOMYCIN 1,750 MG in SODIUM CHLORIDE 0.9% 250 ML IVPB SCH (06:06)
[2017-06-19] MEDS: methylPREDNISolone SOD SUCCI 125 MG/2 ML VIAL IV SCH ×4 (06:06→23:23)
[2017-06-19 06:52] LABS: Glucose,Whole Blood 179 mg/dL (75-99)
[2017-06-19] MEDS: BUDESONIDE 1 MG/2 ML NEBU INHALATION SCH ×2 (07:19→19:48)
[2017-06-19] MEDS: FORMOTEROL FUMARATE 20 MCG/2 ML NEBU INHALATION SCH ×2 (07:19→19:48)
[2017-06-19 07:44] LABS: Anion Gap 11 mmol/L; Blood Urea Nitrogen 17 mg/dL (7-17); Calcium 9.4 mg/dL (8.4-10.2); Carbon Dioxide 28 mmol/L (22-30); Chloride 100 mmol/L (98-107); Glucose 178 mg/dL (74-99); Sodium 139 mmol/L (137-145)
[2017-06-19] MEDS: BALSALAZIDE DISODIUM 750 MG CAPSULE PO SCH ×2 (08:11→17:49)
[2017-06-19] MEDS: INSULIN ASPART 100 UNIT/ML 1 ML 10 ML VIAL SQ SCH ×4 (08:11→21:10)
[2017-06-19] MEDS: PANTOPRAZOLE 40 MG TABLET PO SCH ×2 (08:12→17:50)
[2017-06-19] MEDS: ASPIRIN 81 MG PO SCH (08:13)
[2017-06-19] MEDS: ENOXAPARIN 40 MG/0.4 ML SYRINGE SQ SCH (08:13)
[2017-06-19] MEDS: ACETAMINOPHEN TAB 325 MG TAB PO PRN ×3 (09:45→23:23)
[2017-06-19] MEDS: DEXTROSE 5%-0.45% NACL 1,000 ML IV SCH (10:35)
[2017-06-19] MEDS: LEVOFLOXACIN 750MG-D5W PMX 750 MG in DEXTROSE/WATER 1 150ML.BAG IVPB SCH (10:45)
[2017-06-19 11:34] LABS: Glucose,Whole Blood 159 mg/dL (75-99)
--- NOTE | 2017-06-19 14:18 | P.PN ---
Subjective Progress Note Date: 06/19/17 Principal diagnosis: Acute COPD exacerbation completed by purulent tracheobronchitis and possible bronchopneumonia in the right lower lobe This is a 66-year-old female who was seen by the oncologist yesterday in his office. The patient apparently has a recent diagnosis of chronic lymphocytic leukemia and was going to talk to the oncologist about treatment options. Apparently when she arrived in the office, she was short of breath. Her saturations were low. She was coughing up producing yellow-green phlegm. She apparently also just a lot of chest congestion. For that reason, she was sent over to the hospital as a direct admission. She was started on antibiotics. I' m asked to see her for possible pneumonia. She is a heavy smoker. She's been smoking a number of years. The patient has quit on and off. Anyway the patient 's chest x-ray showed a possible minimal infiltrate in the right lower lobe. It was certainly not very impressive. In addition, her cough was reminiscent of somebody with tracheobronchomalacia. Anyway, the patient is here for our evaluation. I did tell her that the evaluation and treatment with consist of 2 things, acute treatment of what appears to be a COPD exacerbation complicated by purulent tracheobronchitis and possible bronchopneumonia right lower lobe and also treatment for COPD which would better assessed in the outpatient setting. On 06/19/2017 patient is seen in follow-up. Denies any acute distress, denies any dyspnea, denies any fever or chills, or chest pain. On room air, with O2 sat at 93%, she is afebrile, hemodynamically stable. Lung sounds are positive for bibasilar rales, patient has a loose congested productive cough with production of white phlegm. She was initially on a combination of vancomycin and Levaquin, this was streamlined to monotherapy with Levaquin only per ID service recommendation. Blood and urine cultures are negative to date. Patient has been ambulating, tolerating activity fairly well. Continue with current plan of treatment, continue IV Solu-Medrol, nebulized treatments, we'll continue to follow. Objective - Vital Signs Vital signs: Vital Signs Temp 97.9 F 06/19/17 08:35 Pulse 76 06/19/17 11:43 Resp 16 06/19/17 10:14 BP 117/69 06/19/17 08:35 Pulse Ox 93 L 06/19/17 03:52 Intake & Output 06/18/17 06/19/17 06/19/17 18:59 06:59 18:59 Intake Total 575 1275 775 Balance 575 1275 775 Weight 98 kg Intake: Intake, IV Titration 575 1275 775 Amount Dextrose 5%-0.45% NaCl 1, 1025 375 000 ml @ 75 mls/hr IV . [id number] [facility] Rx#:[id number] Levofloxacin 750Mg-D5w 150 150 Pmx 750 mg In Dextrose/ Water 1 150ml.bag @ 100 mls/hr IVPB Q24H [facility] Rx#: [id number] Piperacillin-Tazobactam 3 50 .375 gm In Dextrose/Water 1 50ml.bag @ 12.5 mls/hr IVPB Q8HR [facility] Rx#: [id number] Sodium Chloride 0.9% 1, 375 000 ml @ 75 mls/hr IV . [id number] [facility] Rx#:[id number] Vancomycin 1,750 mg In 250 250 Sodium Chloride 0.9% 250 ml @ 125 mls/hr IVPB Q12H [facility] Rx#:[id number] Other: Voiding Method Toilet Toilet Toilet # Voids 3 1 - Exam No acute distress, oriented 3. Frequent barking congested vibratory cough reminiscent of tracheomalacia. HEENT examination is grossly unremarkable. Mucous membranes are moist. No oral lesions. Neck supple. Full range of motion. No adenopathy thyromegaly or neck vein distention. Cardiovascular examination reveals regular rhythm rate. S1-S2 normal. No S3 or S4. No discernible murmur noted. Lungs sounds are diminished at the bases, with bibasilar rales, but no wheezes or rhonchi noted on today's exam. Abdomen soft bowel sounds are heard. No masses or tenderness. Extremities are intact. No cyanosis clubbing or edema. Skin is without rash or lesion. Neurologic examination is brief but nonfocal. - Labs CBC & Chem 7: 06/18/17 07:31 06/19/17 07:07 Labs: Abnormal Lab Results - Last 24 Hours (Table) 06/18/17 06/18/17 06/18/17 Range/Units 07:31 17:13 20:23 Glucose (74-99) mg/dL POC Glucose (mg/dL) 195 H 211 H (75-99) mg/dL Hemoglobin A1c 6.1 H (4.0-6.0) % 06/19/17 06/19/17 06/19/17 Range/Units 06:50 07:07 11:27 Glucose 178 H (74-99) mg/dL POC Glucose (mg/dL) 179 H 159 H (75-99) mg/dL Hemoglobin A1c (4.0-6.0) % Microbiology - Last 24 Hours (Table) 06/17/17 21:45 Urine Culture - Final Urine,Clean Catch 06/17/17 18:38 Blood Culture - Preliminary Blood No Growth after 24 hours 06/17/17 18:01 Blood Culture - Preliminary Blood No Growth after 24 hours Assessment and Plan Plan: Assessment: COPD exacerbation complicated by purulent tracheobronchitis and possible bronchopneumonia right lower lobe History of recently diagnosed chronic lymphocytic leukemia History of hypertension DJD by history History of diverticular disease and colitis Previous history of hernia repair, hysterectomy, joint replacement Previous history of heavy tobacco use Plan: Continue current antibiotic coverage, this was streamlined per ID service recommendation to monotherapy with Levaquin. Patient remains afebrile, denies any fever or chills. Denies any increasing dyspnea, currently on room air, cultures remain negative to date. Continue with IV steroids, nebulized treatments. Possible discharge tomorrow if patient continues to improve. I performed a history & physical examination of the patient and discussed their management with my nurse practitioner, Melissa Barrios. I reviewed the nurse practitioner's note and agree with the documented findings and plan of care. Lung sounds are positive for bibasilar coarse crackles. The findings and the impression was discussed with the patient. I attest to the documentation by the nurse practitioner. Time with Patient: Less than 30
--- NOTE | 2017-06-19 16:57 | P.PN ---
Subjective Progress Note Date: 06/19/17 Principal diagnosis: Pneumonia Ashley is doing much better today, she is off oxygen without acute distress, still subjective fevers, and coughing up yellow green mucous. Objective - Vital Signs Vital signs: Vital Signs Temp 97.6 F 06/19/17 15:03 Pulse 76 06/19/17 15:26 Resp 22 06/19/17 16:13 BP 151/75 06/19/17 15:03 Pulse Ox 93 L 06/19/17 15:03 Intake & Output 06/18/17 06/19/17 06/19/17 18:59 06:59 18:59 Intake Total 575 1275 775 Balance 575 1275 775 Weight 98 kg Intake: Intake, IV Titration 575 1275 775 Amount Dextrose 5%-0.45% NaCl 1, 1025 375 000 ml @ 75 mls/hr IV . [id number] [facility] Rx#:[id number] Levofloxacin 750Mg-D5w 150 150 Pmx 750 mg In Dextrose/ Water 1 150ml.bag @ 100 mls/hr IVPB Q24H [facility] Rx#: [id number] Piperacillin-Tazobactam 3 50 .375 gm In Dextrose/Water 1 50ml.bag @ 12.5 mls/hr IVPB Q8HR [facility] Rx#: [id number] Sodium Chloride 0.9% 1, 375 000 ml @ 75 mls/hr IV . [id number] [facility] Rx#:[id number] Vancomycin 1,750 mg In 250 250 Sodium Chloride 0.9% 250 ml @ 125 mls/hr IVPB Q12H [facility] Rx#:[id number] Other: Voiding Method Toilet Toilet Toilet # Voids 3 1 - Constitutional General appearance: Present: cooperative, no acute distress, obese - EENT Eyes: Present: EOMI, PERRLA, dentition normal ENT: Present: NA/AT, normal oropharynx - Neck Details: Supple, Trachea Midline Neck: Present: normal ROM - Respiratory Respiratory: bilateral: wheezing (Expiratory scattered wheezes) - Cardiovascular Rhythm: regular Heart sounds: normal: S1, S2 - Gastrointestinal General gastrointestinal: Present: normal bowel sounds, soft - Integumentary Integumentary: Present: normal - Neurologic Neurologic Comment(s): no focal defects Neurologic: Present: CNII-XII intact - Musculoskeletal Musculoskeletal: Present: gait normal, generalized weakness, strength equal bilaterally - Psychiatric Psychiatric: Present: A&O x's 3, appropriate affect, intact judgment & insight - Labs CBC & Chem 7: 06/18/17 07:31 06/19/17 07:07 Labs: Abnormal Lab Results - Last 24 Hours (Table) 06/18/17 06/18/17 06/18/17 Range/Units 07:31 17:13 20:23 Glucose (74-99) mg/dL POC Glucose (mg/dL) 195 H 211 H (75-99) mg/dL Hemoglobin A1c 6.1 H (4.0-6.0) % 06/19/17 06/19/17 06/19/17 Range/Units 06:50 07:07 11:27 Glucose 178 H (74-99) mg/dL POC Glucose (mg/dL) 179 H 159 H (75-99) mg/dL Hemoglobin A1c (4.0-6.0) % Microbiology - Last 24 Hours (Table) 06/17/17 21:45 Urine Culture - Final Urine,Clean Catch 06/17/17 18:38 Blood Culture - Preliminary Blood No Growth after 24 hours 06/17/17 18:01 Blood Culture - Preliminary Blood No Growth after 24 hours Assessment and Plan (1) CLL (chronic lymphocytic leukemia) Current Visit: Yes Status: Acute Code(s): C91.90 - LYMPHOID LEUKEMIA, UNSPECIFIED NOT HAVING ACHIEVED REMISSION SNOMED Code(s): 75310548 (2) UTI (urinary tract infection) Current Visit: Yes Status: Acute Code(s): N39.0 - URINARY TRACT INFECTION, SITE NOT SPECIFIED SNOMED Code(s): 26604683 (3) Acute respiratory insufficiency Current Visit: Yes Status: Acute Code(s): R06.89 - OTHER ABNORMALITIES OF BREATHING SNOMED Code(s): 400219148 Plan: Assessment and Recs: 1. Chronic Lymphocytic Leukemia: - Continues on monitoring, not required treatment at this point, follow-up with Dr. Hartmann as outpatient - Check IGG levels as IVIG may help her fight inferction and can be low in patients with underlying CLL - IGG level within normal limits no reason for IVIG at this time 2. Acute Respiratory Insufficiency: - Likely secondary to Pneumonia - She was on Nitrofurantoin for UTI - Potential for pneumonitis - COPD Exacerbation secondary to history of mcc tobacco dependence - Supportive care with steroids, breathing treatments, ABx and pulmonary following - Pulmonary recs regarding steroids, will defer weaning to pulmonary 3. Fevers - Improved 4. Recent UTI 5. Pneumonia - May have signs of interstial pneumonia - Per Pulmonary Physicain Attestations: I have completed the full history and physical on this patient and discussed and agree with dictation by Anna Hinojosa CORRESPONDENCE CLERK, Dictated as a scribe
[2017-06-19 17:11] LABS: Glucose,Whole Blood 158 mg/dL (75-99)
[2017-06-19 20:29] LABS: Glucose,Whole Blood 133 mg/dL (75-99)
--- NOTE | 2017-06-19 22:06 | US ---
EXAMINATION TYPE: US venous doppler duplex LE RT DATE OF EXAM: 06/19/2017 9:43 PM COMPARISON: NONE CLINICAL HISTORY: pain in right calf. Right calf pain. SIDE PERFORMED: Right TECHNIQUE: The lower extremity deep venous system is examined utilizing real time linear array sonog lorin with graded compression, doppler sonography and color-flow sonography. VESSELS IMAGED: External Iliac Vein (EIV) Common Femoral Vein Deep Femoral Vein Greater Saphenous Vein * Femoral Vein Popliteal Vein Small Saphenous Vein * Proximal Calf Veins (* superficial vessels) Right Leg: Negative for DVT No evidence of DVT right leg. IMPRESSION: Negative exam. No evidence of deep venous thrombosis in the right leg.
[2017-06-19] MEDS: ZOLPIDEM 10 MG TAB PO PRN (23:24)
--- NOTE | 2017-06-19 23:40 | P.CONS ---
History of Present Illness - Reason for Consult Consult date: 06/19/17 - History of Present Illness This is a 66-year-old female who was recently diagnosed with CLL. She states she has had her second appointment with Dr. Worthington yesterday and after checking blood work she was told to come in the hospital. She has history that one month ago she had a sore on her lip that she thought was just a cold sore but went to Dr. Schmitz and he removed 2 masses that ended up coming back as benign and one was a stone. She was placed on antibiotics for that. The following week she had some abdominal pain went to the clinic and was given Macrobid bid for urinary tract infection for 10 day course and she has 2 half days left. Patient states that she feels tired and has had sweats at nighttime for the past 2 nights. She has a cough that is mostly nonproductive but occasionally clear sputum. She also has decreased appetite with nausea without vomiting. She has a history of frequent episodes of bronchitis and usually something like perfumes or plants will cause exacerbation. Patient was directly admitted to the [facility] floor was found to have a temperature max of 99.1, white count was 30.5, heart rate 112 to 1:15. Magnesium was 1.5, creatinine 0.57, AST 46, LDH 694, influenza testing was negative. Urinalysis was clear, blood small. Chest x-ray showed coarse pulmonary markings. No pleural effusion or cardiomegaly. Probable interstitial pneumonia. There is a consult in place with pulmonary medicine and hospitalist for medical management. 06/19/2017 patient is improved. Less short of breath less cough Past Medical History Past Medical History: Cancer, COPD, Hypertension, Osteoarthritis (OA) Additional Past Medical History / Comment(s): HX DIVERTICULOSIS AND COLITIS,, HX colon POLYP, . STATES TOLD SHE HAS COPD. DDD, NECK PAIN, leukemia History of Any Multi-Drug Resistant Organisms: None Reported Past Surgical History: Appendectomy, Hernia Repair, Hysterectomy, Joint Replacement Additional Past Surgical History / Comment(s): UMB. HERNIA WITH MESH., LEFT TOTAL KNEE, AYAN CATARACTS, egd w/bx "neg" Past Anesthesia/Blood Transfusion Reactions: No Reported Reaction Smoking Status: Current every day smoker Additional Past Alcohol Use History / Comment(s): Patient is a smoker on and off since age 18 and currently smoking 8 cigarettes per day. She recently quit for 4 months. No illicit drug use. No alcohol abuse. 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 - Past Family History Mother Family Medical History: Cancer Father Family Medical History: Myocardial Infarction ([place]) Medications and Allergies Home Medications Medication Instructions Recorded Confirmed Type Aspirin [Adult Low Dose Aspirin EC] 81 mg PO DAILY 06/05/16 06/17/17 History Indapamide [Lozol] 2.5 mg PO DAILY 06/05/16 06/17/17 History Zolpidem [Ambien] 10 mg PO HS PRN 06/05/16 06/17/17 History Balsalazide Disodium 1,500 mg PO BID-W/MEALS 12/06/16 06/17/17 History Nitrofurantoin Monohyd/M-Cryst 100 mg PO Q12HR 06/17/17 06/17/17 History [Macrobid] Omeprazole [PriLOSEC] 40 mg PO BID 06/17/17 06/17/17 History Allergies Allergy/AdvReac Type Severity Reaction Status Date / Time perfume Allergy Unknown Dyspnea Verified 06/17/17 18:36 amoxicillin [From Augmentin] Allergy Rash/Hives Verified 06/17/17 18:36 clavulanic acid Allergy Rash/Hives Verified 06/17/17 18:36 [From Augmentin] Physical Exam Vitals: Vital Signs Temp Pulse Pulse Pulse Resp BP Pulse Ox 06/19/17 22:40 97.6 F 73 17 130/74 95 06/19/17 20:12 20 06/19/17 20:09 80 06/19/17 20:01 80 06/19/17 20:00 80 06/19/17 19:52 80 06/19/17 16:13 22 06/19/17 15:26 76 06/19/17 15:14 76 06/19/17 15:03 97.6 F 78 18 151/75 93 L 06/19/17 11:43 76 06/19/17 11:30 76 06/19/17 10:14 16 06/19/17 08:35 97.9 F 87 16 117/69 06/19/17 07:46 88 06/19/17 07:33 84 06/19/17 07:32 84 06/19/17 07:19 84 06/19/17 03:52 98 F 86 17 138/71 93 L 06/19/17 03:25 80 06/19/17 03:14 80 06/18/17 23:27 76 06/18/17 23:20 84 17 06/18/17 23:17 80 Intake and Output 06/19/17 06/19/17 06/20/17 14:59 22:59 06:59 Intake Total 775 350 Balance 775 350 Intake: Intake, IV Titration 775 Amount Dextrose 5%-0.45% NaCl 1, 375 000 ml @ 75 mls/hr IV . [id number] JULY Rx#:[id number] Levofloxacin 750Mg-D5w 150 Pmx 750 mg In Dextrose/ Water 1 150ml.bag @ 100 mls/hr IVPB Q24H JULY Rx#: [id number] Vancomycin 1,750 mg In 250 Sodium Chloride 0.9% 250 ml @ 125 mls/hr IVPB Q12H JULY Rx#:[id number] Oral 350 Other: Voiding Method Toilet Toilet # Voids 1 2 Weight 98 kg Gen: This is a 66-year-old female. She is sitting up in bed and appears to be comfortable. She does not appear to be in any acute respiratory distress. HEENT: Head is atraumatic, normocephalic. Pupils equal, round. Sclerae is anicteric. Conjunctiva pink. Mucous members of the mouth are moist. Lesions on her lower lip are completely healed with no signs of infection. NECK: Supple. No JVD. No lymphadenopathy. No thyromegaly. LUNGS: Bilateral lower rhonchi increased on the right. No intercostal retractions. HEART: Regular rate and rhythm. No murmur. ABDOMEN: Soft. Bowel sounds are present. No masses. No tenderness. EXTREMITIES: No pedal edema. No calf tenderness. Dorsalis pedis +2 bilaterally. NEUROLOGICAL: Patient is awake, alert and oriented x3. Cranial nerves 2 through 12 are grossly intact. Results CBC & Chem 7: 06/18/17 07:31 06/19/17 07:07 Labs: Abnormal Lab Results - Last 24 Hours (Table) 06/19/17 06/19/17 06/19/17 Range/Units 06:50 07:07 11:27 Glucose 178 H (74-99) mg/dL POC Glucose (mg/dL) 179 H 159 H (75-99) mg/dL 06/19/17 06/19/17 Range/Units 17:08 20:09 Glucose (74-99) mg/dL POC Glucose (mg/dL) 158 H 133 H (75-99) mg/dL Microbiology - Last 24 Hours (Table) 06/17/17 18:38 Blood Culture - Preliminary Blood No Growth after 48 hours 06/17/17 18:01 Blood Culture - Preliminary Blood No Growth after 48 hours 06/17/17 21:45 Urine Culture - Final Urine,Clean Catch Laboratory Results WBC 23.9 k/uL (3.8-10.6) H 06/18/17 07:31 RBC 4.90 m/uL (3.80-5.40) 06/18/17 07:31 Hgb 14.9 gm/dL (11.4-16.0) 06/18/17 07:31 Hct 46.4 % (34.0-46.0) H 06/18/17 07:31 MCV 94.7 fL (80.0-100.0) 06/18/17 07:31 MCH 30.4 pg (25.0-35.0) 06/18/17 07:31 MCHC 32.1 g/dL (31.0-37.0) 06/18/17 07:31 RDW 12.3 % (11.5-15.5) 06/18/17 07:31 Plt Count 273 k/uL (150-450) 06/18/17 07:31 Neutrophils % 87 % 06/18/17 07:31 Lymphocytes % 10 % 06/18/17 07:31 Monocytes % 2 % 06/18/17 07:31 Eosinophils % 0 % 06/18/17 07:31 Basophils % 0 % 06/18/17 07:31 Neutrophils # 20.8 k/uL (1.3-7.7) H 06/18/17 07:31 Lymphocytes # 2.5 k/uL (1.0-4.8) 06/18/17 07:31 Monocytes # 0.4 k/uL (0-1.0) 06/18/17 07:31 Eosinophils # 0.1 k/uL (0-0.7) 06/18/17 07:31 Basophils # 0.0 k/uL (0-0.2) 06/18/17 07:31 Sodium 139 mmol/L (137-145) 06/19/17 07:07 Potassium 4.0 mmol/L (3.5-5.1) 06/19/17 07:07 Chloride 100 mmol/L (98-107) 06/19/17 07:07 Carbon Dioxide 28 mmol/L (22-30) 06/19/17 07:07 Anion Gap 11 mmol/L 06/19/17 07:07 BUN 17 mg/dL (7-17) 06/19/17 07:07 Creatinine 0.53 mg/dL (0.52-1.04) 06/19/17 07:07 Est GFR (CKD-EPI)AfAm >90 (>60 ml/min/1.73 sqM) 06/19/17 07:07 Est GFR (CKD-EPI)NonAf >90 (>60 ml/min/1.73 sqM) 06/19/17 07:07 Glucose 178 mg/dL (74-99) H 06/19/17 07:07 POC Glucose (mg/dL) 133 mg/dL (75-99) H 06/19/17 20:09 POC Glu [employer] ID Shanika Romo 06/19/17 20:[address] Glu mg/dL 128 06/18/17 07:31 Hemoglobin A1c 6.1 % (4.0-6.0) H 06/18/17 07:31 Plasma Lactic Acid Jose 1.5 mmol/L (0.7-2.0) 06/17/17 18:57 Uric Acid 4.4 mg/dL (3.7-7.4) 06/17/17 18:57 Calcium 9.4 mg/dL (8.4-10.2) 06/19/17 07:07 Magnesium 1.5 mg/dL (1.6-2.3) L 06/17/17 18:57 Total Bilirubin 0.6 mg/dL (0.2-1.3) 06/18/17 07:31 AST 36 U/L (14-36) 06/18/17 07:31 ALT 31 U/L (9-52) 06/18/17 07:31 Alkaline Phosphatase 79 U/L (38-126) 06/18/17 07:31 Lactate Dehydrogenase 694 U/L (313-618) H 06/17/17 18:57 Total Protein 6.9 g/dL (6.3-8.2) 06/18/17 07:31 Albumin 3.9 g/dL (3.5-5.0) 06/18/17 07:31 Urine Color Yellow 06/17/17 21:45 Urine Appearance Clear (Clear) 06/17/17 21:45 Urine pH 6.5 (5.0-8.0) 06/17/17 21:45 Ur Specific [place] 1.005 (1.001-1.035) 06/17/17 21:45 Urine Protein Negative (Negative) 06/17/17 21:45 Urine Glucose (UA) Negative (Negative) 06/17/17 21:45 Urine Ketones Negative (Negative) 06/17/17 21:45 Urine Blood Small (Negative) H 06/17/17 21:45 Urine Nitrite Negative (Negative) 06/17/17 21:45 Urine Bilirubin Negative (Negative) 06/17/17 21:45 Urine Urobilinogen <2.0 mg/dL (<2.0) 06/17/17 21:45 Ur Leukocyte Esterase Negative (Negative) 06/17/17 21:45 Urine RBC 2 /hpf (0-5) 06/17/17 21:45 Urine WBC 2 /hpf (0-5) 06/17/17 21:45 Ur Squamous Epith Cells <1 /hpf (0-4) 06/17/17 21:45 IgG 1020.0 mg/dL (700.0-1600.0) 06/17/17 18:01 Influenza Type A RNA Not Detected (Not Detectd) 06/17/17 20:07 Influenza Type B (PCR) Not Detected (Not Detectd) 06/17/17 20:07 Microbiology 06/17/17 18:38 Blood Blood Culture - Preliminary No Growth after 48 hours 06/17/17 18:01 Blood Blood Culture - Preliminary No Growth after 48 hours 06/17/17 21:45 Urine,Clean Catch Urine Culture - Final Assessment and Plan (1) CLL (chronic lymphocytic leukemia) Current Visit: Yes Status: Acute Code(s): C91.90 - LYMPHOID LEUKEMIA, UNSPECIFIED NOT HAVING ACHIEVED REMISSION SNOMED Code(s): 14046960 (2) Pneumonia Narrative/Plan: 66-year-old woman who has a history of CLL has not yet been placed on chemotherapy presented to her oncologist office but was found evidence of significant shortness of breath. Appear to be having exacerbation of COPD with concerns to underlying pneumonia. Chest x-ray shows likely interstitial pneumonitis. Antibiotic therapy is being streamline at this point in time, levofloxacin as mono therapy should be adequate given her significant improvements. Patient does desire to fly this coming weekend it would ask for pulmonology to ensure that they believe she is capable of flying a pressurized jet. 06/19/2017 patient is doing somewhat better today. She is short of breath. Showing some improvement. s beng followed pulmonary medicine. They agree that she should not fly. Monotherapy with Levaquin to finish the course of treatment of her pneumonia. by Current Visit: Yes Status: Acute Code(s): J18.9 - PNEUMONIA, UNSPECIFIED ORGANISM SNOMED Code(s): 642324550
[2017-06-19] MEDS ORDERED: IPRATROPIUM-ALBUTEROL 3 ML NEB INHALATION PRN (23:56)
[2017-06-20] MEDS: DEXTROSE 5%-0.45% NACL 1,000 ML IV SCH ×2 (02:32→16:17)
[2017-06-20] MEDS ORDERED: VANCOMYCIN TROUGH DUE 1 EACH MISC MISCELLANE ONE (05:00)
[2017-06-20 05:39] LABS: HCT 42.5 % (34.0-46.0); HGB 14.5 gm/dL (11.4-16.0); MCH 31.8 pg (25.0-35.0); MCHC 34.1 g/dL (31.0-37.0); MCV 93.2 fL (80.0-100.0); Mean Platelet Volume 6.9; Platelet Count 342 k/uL (150-450); RBC 4.57 m/uL (3.80-5.40); RDW 12.3 % (11.5-15.5)
[2017-06-20 05:48] LABS: Anion Gap 13 mmol/L; Blood Urea Nitrogen 24 mg/dL (7-17); Calcium 9.7 mg/dL (8.4-10.2); Carbon Dioxide 28 mmol/L (22-30); Chloride 101 mmol/L (98-107); Glucose 203 mg/dL (74-99); Potassium 4.3 mmol/L (3.5-5.1); Sodium 142 mmol/L (137-145)
[2017-06-20 05:56] LABS: WBC 25.7 k/uL (3.8-10.6)
[2017-06-20] MEDS: methylPREDNISolone SOD SUCCI 125 MG/2 ML VIAL IV SCH ×4 (06:11→23:22)
[2017-06-20 07:03] LABS: Glucose,Whole Blood 140 mg/dL (75-99)
[2017-06-20] MEDS: FORMOTEROL FUMARATE 20 MCG/2 ML NEBU INHALATION SCH ×2 (07:08→18:48)
[2017-06-20] MEDS: IPRATROPIUM-ALBUTEROL 3 ML NEB INHALATION SCH ×4 (07:08→18:49)
[2017-06-20] MEDS: BUDESONIDE 1 MG/2 ML NEBU INHALATION SCH ×2 (07:08→18:49)
[2017-06-20] MEDS: BALSALAZIDE DISODIUM 750 MG CAPSULE PO SCH ×2 (07:40→18:03)
[2017-06-20] MEDS: PANTOPRAZOLE 40 MG TABLET PO SCH ×2 (07:42→18:04)
[2017-06-20] MEDS: ASPIRIN 81 MG PO SCH (07:43)
[2017-06-20] MEDS: LEVOFLOXACIN 750 MG TAB PO SCH (07:43)
[2017-06-20] MEDS: ENOXAPARIN 40 MG/0.4 ML SYRINGE SQ SCH (07:43)
[2017-06-20] MEDS: INSULIN ASPART 100 UNIT/ML 1 ML 10 ML VIAL SQ SCH ×4 (07:44→20:10)
[2017-06-20] MEDS: ACETAMINOPHEN TAB 325 MG TAB PO PRN ×2 (10:14→22:13)
[2017-06-20 11:58] LABS: Glucose,Whole Blood 143 mg/dL (75-99)
--- NOTE | 2017-06-20 13:01 | P.PN ---
Subjective Progress Note Date: 06/20/17 Principal diagnosis: Acute COPD exacerbation completed by purulent tracheobronchitis and possible bronchopneumonia in the right lower lobe This is a 66-year-old female who was seen by the oncologist yesterday in his office. The patient apparently has a recent diagnosis of chronic lymphocytic leukemia and was going to talk to the oncologist about treatment options. Apparently when she arrived in the office, she was short of breath. Her saturations were low. She was coughing up producing yellow-green phlegm. She apparently also just a lot of chest congestion. For that reason, she was sent over to the hospital as a direct admission. She was started on antibiotics. I' m asked to see her for possible pneumonia. She is a heavy smoker. She's been smoking a number of years. The patient has quit on and off. Anyway the patient 's chest x-ray showed a possible minimal infiltrate in the right lower lobe. It was certainly not very impressive. In addition, her cough was reminiscent of somebody with tracheobronchomalacia. Anyway, the patient is here for our evaluation. I did tell her that the evaluation and treatment with consist of 2 things, acute treatment of what appears to be a COPD exacerbation complicated by purulent tracheobronchitis and possible bronchopneumonia right lower lobe and also treatment for COPD which would better assessed in the outpatient setting. On 06/19/2017 patient is seen in follow-up. Denies any acute distress, denies any dyspnea, denies any fever or chills, or chest pain. On room air, with O2 sat at 93%, she is afebrile, hemodynamically stable. Lung sounds are positive for bibasilar rales, patient has a loose congested productive cough with production of white phlegm. She was initially on a combination of vancomycin and Levaquin, this was streamlined to monotherapy with Levaquin only per ID service recommendation. Blood and urine cultures are negative to date. Patient has been ambulating, tolerating activity fairly well. Continue with current plan of treatment, continue IV Solu-Medrol, nebulized treatments, we'll continue to follow. On 06/20/2017 patient seen in follow-up on medical surgical floor. Continues to improve, denies any worsening dyspnea, denies any fever or chills, chest pain. Still has a loose congested cough, she states last night she was able to bring up large amount of phlegm. Overall feeling better, is stable, patient is afebrile, on 2 L per nasal cannula with O2 sat 94%. Patient is on home oxygen, room air O2 sat was 88%. Blood and urine culture May negative, antibiotics have been streamlined to monotherapy with Levaquin per ID service recommendations, patient is on IV steroids, nebulized treatments. She is tolerating ambulation, today's lab work shows WBC of 25.7, electrolytes are within normal limits, B1 is 24, creatinine 0.60. Patient is complaining of some fatigue, overall making improvement. Initially it was thought that she could potentially go home today, per attending physician patient is staying for another 24 hours of inpatient treatment. Objective - Vital Signs Vital signs: Vital Signs Temp 97.6 F 06/20/17 08:16 Pulse 87 06/20/17 12:29 Resp 18 06/20/17 12:29 BP 136/78 06/20/17 08:16 Pulse Ox 94 L 06/20/17 12:29 Intake & Output 06/19/17 06/20/17 06/20/17 18:59 06:59 18:59 Intake Total 775 890 480 Balance 775 890 480 Weight 98 kg Intake: Intake, IV Titration 775 Amount Dextrose 5%-0.45% NaCl 1, 375 000 ml @ 75 mls/hr IV . [id number] JULY Rx#:[id number] Levofloxacin 750Mg-D5w 150 Pmx 750 mg In Dextrose/ Water 1 150ml.bag @ 100 mls/hr IVPB Q24H JULY Rx#: [id number] Vancomycin 1,750 mg In 250 Sodium Chloride 0.9% 250 ml @ 125 mls/hr IVPB Q12H JULY Rx#:[id number] Oral 890 480 Other: Voiding Method Toilet Toilet Toilet # Voids 1 2 - Exam No acute distress, oriented 3. Frequent barking congested vibratory cough reminiscent of tracheomalacia. HEENT examination is grossly unremarkable. Mucous membranes are moist. No oral lesions. Neck supple. Full range of motion. No adenopathy thyromegaly or neck vein distention. Cardiovascular examination reveals regular rhythm rate. S1-S2 normal. No S3 or S4. No discernible murmur noted. Lungs sounds are diminished, with rhonchi and wheezes. Patient has congested nonproductive cough Abdomen soft bowel sounds are heard. No masses or tenderness. Extremities are intact. No cyanosis clubbing or edema. Skin is without rash or lesion. Neurologic examination is brief but nonfocal. - Labs CBC & Chem 7: 06/20/17 05:24 06/20/17 05:24 Labs: Abnormal Lab Results - Last 24 Hours (Table) 06/19/17 06/19/17 06/20/17 Range/Units 17:08 20:09 05:24 WBC (3.8-10.6) k/uL BUN 24 H (7-17) mg/dL Glucose 203 H (74-99) mg/dL POC Glucose (mg/dL) 158 H 133 H (75-99) mg/dL 06/20/17 06/20/17 06/20/17 Range/Units 05:24 07:01 11:37 WBC 25.7 H* (3.8-10.6) k/uL BUN (7-17) mg/dL Glucose (74-99) mg/dL POC Glucose (mg/dL) 140 H 143 H (75-99) mg/dL Microbiology - Last 24 Hours (Table) 06/17/17 18:38 Blood Culture - Preliminary Blood No Growth after 48 hours 06/17/17 18:01 Blood Culture - Preliminary Blood No Growth after 48 hours 06/17/17 21:45 Urine Culture - Final Urine,Clean Catch Assessment and Plan Plan: Assessment: COPD exacerbation complicated by purulent tracheobronchitis and possible bronchopneumonia right lower lobe History of recently diagnosed chronic lymphocytic leukemia History of hypertension DJD by history History of diverticular disease and colitis Previous history of hernia repair, hysterectomy, joint replacement Previous history of heavy tobacco use Plan: Patient is improving, still bit congested, is starting to bring up some phlegm. Afebrile, denies any chills, denies any chest pain, denies any hemoptysis. Vital signs are stable. Initially it was thought patient could potentially go home today, but per attending physician patient will be staying for another 24 hours of inpatient treatment. Continue current antibiotic coverage, this was streamlined per ID service recommendation to monotherapy with Levaquin. Continue with IV steroids, nebulized treatments. I performed a history & physical examination of the patient and discussed their management with my nurse practitioner, Melissa Barrios. I reviewed the nurse practitioner's note and agree with the documented findings and plan of care. Lung sounds are positive for rhonchi and wheezes. The findings and the impression was discussed with the patient. I attest to the documentation by the nurse practitioner. Time with Patient: Less than 30
--- NOTE | 2017-06-20 16:43 | P.PN ---
Subjective Progress Note Date: 06/20/17 The patient's breathing is much improved. She still has a cough, but is able to bring up more expectoration and feels better. No fever/chills/nausea or vomiting Objective - Vital Signs Vital signs: Vital Signs Temp 98.4 F 06/20/17 15:00 Pulse 84 06/20/17 15:40 Resp 16 06/20/17 15:00 BP 147/75 06/20/17 15:00 Pulse Ox 95 06/20/17 15:00 Intake & Output 06/19/17 06/20/17 06/20/17 18:59 06:59 18:59 Intake Total 125 881 8974 Balance 714 950 2925 Weight 98 kg Intake: Intake, IV Titration 775 Amount Dextrose 5%-0.45% NaCl 1, 375 000 ml @ 75 mls/hr IV . [id number] JULY Rx#:[id number] Levofloxacin 750Mg-D5w 150 Pmx 750 mg In Dextrose/ Water 1 150ml.bag @ 100 mls/hr IVPB Q24H JULY Rx#: [id number] Vancomycin 1,750 mg In 250 Sodium Chloride 0.9% 250 ml @ 125 mls/hr IVPB Q12H JULY Rx#:[id number] Oral 890 1800 Other: Voiding Method Toilet Toilet Toilet # Voids 1 2 3 - Constitutional General appearance: Present: no acute distress - EENT Eyes: Present: PERRLA ENT: Present: hearing grossly normal, normal oropharynx - Respiratory Respiratory: bilateral: CTA - Cardiovascular Rhythm: regular Heart sounds: normal: S1, S2 - Gastrointestinal General gastrointestinal: Present: normal bowel sounds, soft - Integumentary Integumentary: Present: normal - Neurologic Neurologic: Present: CNII-XII intact - Musculoskeletal Musculoskeletal: Present: strength equal bilaterally - Psychiatric Psychiatric: Present: A&O x's 3, appropriate affect - Labs CBC & Chem 7: 06/20/17 05:24 06/20/17 05:24 Labs: Abnormal Lab Results - Last 24 Hours (Table) 06/19/17 06/19/17 06/20/17 Range/Units 17:08 20:09 05:24 WBC (3.8-10.6) k/uL BUN 24 H (7-17) mg/dL Glucose 203 H (74-99) mg/dL POC Glucose (mg/dL) 158 H 133 H (75-99) mg/dL 06/20/17 06/20/17 06/20/17 Range/Units 05:24 07:01 11:37 WBC 25.7 H* (3.8-10.6) k/uL BUN (7-17) mg/dL Glucose (74-99) mg/dL POC Glucose (mg/dL) 140 H 143 H (75-99) mg/dL Microbiology - Last 24 Hours (Table) 06/17/17 18:38 Blood Culture - Preliminary Blood No Growth after 48 hours 06/17/17 18:01 Blood Culture - Preliminary Blood No Growth after 48 hours Assessment and Plan (1) Acute respiratory insufficiency Narrative/Plan: The patient is much improved with aerosols, steroids, oxygen and antibiotics. Case was discussed with infectious diseases. It is felt that she most likely had COPD exacerbation with tracheo bronchitis, rather than overt pneumonia. Continue treatment per the admitting service, ID and pulmonary medicine. The patient will likely be discharged tomorrow. Current Visit: Yes Status: Acute Code(s): R06.89 - OTHER ABNORMALITIES OF BREATHING SNOMED Code(s): 955674287 (2) CLL (chronic lymphocytic leukemia) Narrative/Plan: The patient has essentially stage 0 disease and underwent require treatment. She did have increase in WBC during this admission due to acute illness and steroid effect. However the increase was due to neutrophilia, while lymphocyte count remained normal. Immunoglobulin levels were adequate. The patient will follow up with Dr. Hartmann in 3 months Current Visit: Yes Status: Acute Code(s): C91.90 - LYMPHOID LEUKEMIA, UNSPECIFIED NOT HAVING ACHIEVED REMISSION SNOMED Code(s): 01355641
[2017-06-20 17:13] LABS: Glucose,Whole Blood 145 mg/dL (75-99)
[2017-06-20 19:38] LABS: Glucose,Whole Blood 206 mg/dL (75-99)
[2017-06-20] MEDS: ZOLPIDEM 10 MG TAB PO PRN (22:13)
--- NOTE | 2017-06-20 22:23 | P.PN ---
Subjective Progress Note Date: 06/20/17 This is a 66-year-old female who was recently diagnosed with CLL. She states she has had her second appointment with Dr. Worthington yesterday and after checking blood work she was told to come in the hospital. She has history that one month ago she had a sore on her lip that she thought was just a cold sore but went to Dr. Schmitz and he removed 2 masses that ended up coming back as benign and one was a stone. She was placed on antibiotics for that. The following week she had some abdominal pain went to the clinic and was given Macrobid bid for urinary tract infection for 10 day course and she has 2 half days left. Patient states that she feels tired and has had sweats at nighttime for the past 2 nights. She has a cough that is mostly nonproductive but occasionally clear sputum. She also has decreased appetite with nausea without vomiting. She has a history of frequent episodes of bronchitis and usually something like perfumes or plants will cause exacerbation. Patient was directly admitted to the [facility] floor was found to have a temperature max of 99.1, white count was 30.5, heart rate 112 to 1:15. Magnesium was 1.5, creatinine 0.57, AST 46, LDH 694, influenza testing was negative. Urinalysis was clear, blood small. Chest x-ray showed coarse pulmonary markings. No pleural effusion or cardiomegaly. Probable interstitial pneumonia. There is a consult in place with pulmonary medicine and hospitalist for medical management. 06/19/2017 patient is improved. Less short of breath less cough 06/20/2017 reveals further improvement. The patient did have a walking oxygen assessment today which she did not do well with it is a candidate for home oxygen and this is being set up. The patient is very unhappy about the potential for home oxygen. She is hoping that she just simply won't need it. Objective - Vital Signs Vital signs: Vital Signs Temp 98.4 F 06/20/17 15:00 Pulse 88 06/20/17 19:09 Resp 16 06/20/17 19:06 BP 147/75 06/20/17 15:00 Pulse Ox 95 06/20/17 15:00 Intake & Output 06/20/17 06/20/17 06/21/17 06:59 18:59 06:59 Intake Total 890 1800 Balance 890 1800 Intake: Oral 890 1800 Other: Voiding Method Toilet Toilet Toilet # Voids 2 3 - Exam Gen: This is a 66-year-old female. She is sitting up in bed and appears to be comfortable. She does not appear to be in any acute respiratory distress. HEENT: Head is atraumatic, normocephalic. Pupils equal, round. Sclerae is anicteric. Conjunctiva pink. Mucous members of the mouth are moist. Lesions on her lower lip are completely healed with no signs of infection. NECK: Supple. No JVD. No lymphadenopathy. No thyromegaly. LUNGS: Bilateral lower rhonchi increased on the right. No intercostal retractions. HEART: Regular rate and rhythm. No murmur. ABDOMEN: Soft. Bowel sounds are present. No masses. No tenderness. EXTREMITIES: No pedal edema. No calf tenderness. Dorsalis pedis +2 bilaterally. NEUROLOGICAL: Patient is awake, alert and oriented x3. Cranial nerves 2 through 12 are grossly intact. - Labs CBC & Chem 7: 06/20/17 05:24 06/20/17 05:24 Labs: Abnormal Lab Results - Last 24 Hours (Table) 06/20/17 06/20/17 06/20/17 Range/Units 05:24 05:24 07:01 WBC 25.7 H* (3.8-10.6) k/uL BUN 24 H (7-17) mg/dL Glucose 203 H (74-99) mg/dL POC Glucose (mg/dL) 140 H (75-99) mg/dL 06/20/17 06/20/17 06/20/17 Range/Units 11:37 17:07 19:37 WBC (3.8-10.6) k/uL BUN (7-17) mg/dL Glucose (74-99) mg/dL POC Glucose (mg/dL) 143 H 145 H 206 H (75-99) mg/dL Microbiology - Last 24 Hours (Table) 06/17/17 18:38 Blood Culture - Preliminary Blood No Growth after 72 hours 06/17/17 18:01 Blood Culture - Preliminary Blood No Growth after 72 hours Laboratory Results WBC 25.7 k/uL (3.8-10.6) H* 06/20/17 05:24 RBC 4.57 m/uL (3.80-5.40) 06/20/17 05:24 Hgb 14.5 gm/dL (11.4-16.0) 06/20/17 05:24 Hct 42.5 % (34.0-46.0) 06/20/17 05:24 MCV 93.2 fL (80.0-100.0) 06/20/17 05:24 MCH 31.8 pg (25.0-35.0) 06/20/17 05:24 MCHC 34.1 g/dL (31.0-37.0) 06/20/17 05:24 RDW 12.3 % (11.5-15.5) 06/20/17 05:24 Plt Count 342 k/uL (150-450) 06/20/17 05:24 Neutrophils % 87 % 06/18/17 07:31 Lymphocytes % 10 % 06/18/17 07:31 Monocytes % 2 % 06/18/17 07:31 Eosinophils % 0 % 06/18/17 07:31 Basophils % 0 % 06/18/17 07:31 Neutrophils # 20.8 k/uL (1.3-7.7) H 06/18/17 07:31 Lymphocytes # 2.5 k/uL (1.0-4.8) 06/18/17 07:31 Monocytes # 0.4 k/uL (0-1.0) 06/18/17 07:31 Eosinophils # 0.1 k/uL (0-0.7) 06/18/17 07:31 Basophils # 0.0 k/uL (0-0.2) 06/18/17 07:31 Sodium 142 mmol/L (137-145) 06/20/17 05:24 Potassium 4.3 mmol/L (3.5-5.1) 06/20/17 05:24 Chloride 101 mmol/L (98-107) 06/20/17 05:24 Carbon Dioxide 28 mmol/L (22-30) 06/20/17 05:24 Anion Gap 13 mmol/L 06/20/17 05:24 BUN 24 mg/dL (7-17) H 06/20/17 05:24 Creatinine 0.60 mg/dL (0.52-1.04) 06/20/17 05:24 Est GFR (CKD-EPI)AfAm >90 (>60 ml/min/1.73 sqM) 06/20/17 05:24 Est GFR (CKD-EPI)NonAf >90 (>60 ml/min/1.73 sqM) 06/20/17 05:24 Glucose 203 mg/dL (74-99) H 06/20/17 05:24 POC Glucose (mg/dL) 206 mg/dL (75-99) H 06/20/17 19:37 POC Glu Safety [employer] ID Jasmina Clayton 06/20/17 19:[address] Glu mg/dL 128 06/18/17 07:31 Hemoglobin A1c 6.1 % (4.0-6.0) H 06/18/17 07:31 Plasma Lactic Acid Jose 1.5 mmol/L (0.7-2.0) 06/17/17 18:57 Uric Acid 4.4 mg/dL (3.7-7.4) 06/17/17 18:57 Calcium 9.7 mg/dL (8.4-10.2) 06/20/17 05:24 Magnesium 1.5 mg/dL (1.6-2.3) L 06/17/17 18:57 Total Bilirubin 0.6 mg/dL (0.2-1.3) 06/18/17 07:31 AST 36 U/L (14-36) 06/18/17 07:31 ALT 31 U/L (9-52) 06/18/17 07:31 Alkaline Phosphatase 79 U/L (38-126) 06/18/17 07:31 Lactate Dehydrogenase 694 U/L (313-618) H 06/17/17 18:57 Total Protein 6.9 g/dL (6.3-8.2) 06/18/17 07:31 Albumin 3.9 g/dL (3.5-5.0) 06/18/17 07:31 Urine Color Yellow 06/17/17 21:45 Urine Appearance Clear (Clear) 06/17/17 21:45 Urine pH 6.5 (5.0-8.0) 06/17/17 21:45 Ur Specific [place] 1.005 (1.001-1.035) 06/17/17 21:45 Urine Protein Negative (Negative) 06/17/17 21:45 Urine Glucose (UA) Negative (Negative) 06/17/17 21:45 Urine Ketones Negative (Negative) 06/17/17 21:45 Urine Blood Small (Negative) H 06/17/17 21:45 Urine Nitrite Negative (Negative) 06/17/17 21:45 Urine Bilirubin Negative (Negative) 06/17/17 21:45 Urine Urobilinogen <2.0 mg/dL (<2.0) 06/17/17 21:45 Ur Leukocyte Esterase Negative (Negative) 06/17/17 21:45 Urine RBC 2 /hpf (0-5) 06/17/17 21:45 Urine WBC 2 /hpf (0-5) 06/17/17 21:45 Ur Squamous Epith Cells <1 /hpf (0-4) 06/17/17 21:45 Vancomycin Trough 7.4 ug/mL 06/20/17 05:24 IgG 1020.0 mg/dL (700.0-1600.0) 06/17/17 18:01 Influenza Type A RNA Not Detected (Not Detectd) 06/17/17 20:07 Influenza Type B (PCR) Not Detected (Not Detectd) 06/17/17 20:07 Microbiology 06/17/17 18:38 Blood Blood Culture - Preliminary No Growth after 72 hours 06/17/17 18:01 Blood Blood Culture - Preliminary No Growth after 72 hours 06/17/17 21:45 Urine,Clean Catch Urine Culture - Final Assessment and Plan (1) CLL (chronic lymphocytic leukemia) Current Visit: Yes Status: Acute Code(s): C91.90 - LYMPHOID LEUKEMIA, UNSPECIFIED NOT HAVING ACHIEVED REMISSION SNOMED Code(s): 20207384 (2) Pneumonia Narrative/Plan: 66-year-old woman who has a history of CLL has not yet been placed on chemotherapy presented to her oncologist office but was found evidence of significant shortness of breath. Appear to be having exacerbation of COPD with concerns to underlying pneumonia. Chest x-ray shows likely interstitial pneumonitis. Antibiotic therapy is being streamline at this point in time, levofloxacin as mono therapy should be adequate given her significant improvements. Patient does desire to fly this coming weekend it would ask for pulmonology to ensure that they believe she is capable of flying a pressurized jet. 06/19/2017 patient is doing somewhat better today. She is short of breath. Showing some improvement. s beng followed pulmonary medicine. They agree that she should not fly. Monotherapy with Levaquin to finish the course of treatment of her pneumonia. 06/20/2017 reveals the patient to be further improved. She is still short of breath at times. She has been evaluated and is a candidate for home oxygen therapy. The patient is not at all engaged in the home oxygen process. Thus, we discussed at great length the importance of oxygen. Oxygen is he to all the bodies metabolism going to level is low the body is stressed. This creates increasing difficulties including on the lungs. The use of oxygen therapy has been associated with decreased illnesses and improve longevity. The patient is instructed to wear her oxygen whenever she is active and short of breath and should wear it when she is sleeping which hopefully can improve her overall quality of life. She will follow-up with the center hole reamer. She will complete a seven-day course of antibiotic therapy for her exacerbation of COPD. Current Visit: Yes Status: Acute Code(s): J18.9 - PNEUMONIA, UNSPECIFIED ORGANISM SNOMED Code(s): 776137254
[2017-06-21] MEDS: methylPREDNISolone SOD SUCCI 125 MG/2 ML VIAL IV SCH ×2 (05:27→11:24)
[2017-06-21] MEDS: DEXTROSE 5%-0.45% NACL 1,000 ML IV SCH ×2 (05:59→11:28)
[2017-06-21 07:27] LABS: Glucose,Whole Blood 135 mg/dL (75-99)
[2017-06-21] MEDS: FORMOTEROL FUMARATE 20 MCG/2 ML NEBU INHALATION SCH (07:40)
[2017-06-21] MEDS: BUDESONIDE 1 MG/2 ML NEBU INHALATION SCH (07:40)
[2017-06-21] MEDS: IPRATROPIUM-ALBUTEROL 3 ML NEB INHALATION SCH ×2 (07:41→11:14)
[2017-06-21] MEDS: INSULIN ASPART 100 UNIT/ML 1 ML 10 ML VIAL SQ SCH ×2 (07:48→11:26)
[2017-06-21] MEDS: ACETAMINOPHEN TAB 325 MG TAB PO PRN (07:48)
[2017-06-21] MEDS: PANTOPRAZOLE 40 MG TABLET PO SCH (07:50)
[2017-06-21] MEDS: LEVOFLOXACIN 750 MG TAB PO SCH (07:50)
[2017-06-21] MEDS: ASPIRIN 81 MG PO SCH (07:50)
[2017-06-21] MEDS: BALSALAZIDE DISODIUM 750 MG CAPSULE PO SCH (07:50)
[2017-06-21] MEDS: ENOXAPARIN 40 MG/0.4 ML SYRINGE SQ SCH (07:50)
[2017-06-21 08:00] LABS: Anion Gap 10 mmol/L; Blood Urea Nitrogen 23 mg/dL (7-17); Calcium 9.4 mg/dL (8.4-10.2); Carbon Dioxide 31 mmol/L (22-30); Chloride 99 mmol/L (98-107); Glucose 137 mg/dL (74-99); Potassium 4.5 mmol/L (3.5-5.1); Sodium 140 mmol/L (137-145)
[2017-06-21 08:19] VITALS: BP 161/96; RESP 18; TEMP 98
[2017-06-21 11:17] LABS: Glucose,Whole Blood 146 mg/dL (75-99)
--- NOTE | 2017-06-21 11:28 | P.DS ---
Providers Date of admission: 06/17/17 17:09 Attending physician: Lorna Ureña Consults: 06/17/17 17:26 Consult Physician Routine Consulting Provider: Lin Garcia Consult Reason/Comments: copd/pneumonia Do you want consulting provider notified?: Yes Placement Type Exists?: Yes 06/17/17 18:26 Consult Physician Routine Consulting Provider: Atif Chandler Consult Reason/Comments: Febrile, CLL, Pneumonia, UTI, recent mouth infection Do you want consulting provider notified?: Yes Placement Type Exists?: Yes 06/20/17 16:36 Consult Physician Routine Consulting Provider: Matt Dela Cruz Consult Reason/Comments: [place] Do you want consulting provider notified?: Already Contacted Primary care physician: Phuong Juarez [facility] Course: 66-year-old female admitted the secondary to possible atypical pneumonia are bronchopneumonia right upper lobe patient is feeling better will ablate the patient make sure patient will not require any home oxygen if she is requiring hopefully that'll be temporary and patient will be discharged today. Patient will be discharged on levofloxacin as recommended by infectious disease. PHYSICAL EXAMINATION: GENERAL: The patient is alert and oriented x3, not in any acute distress. Well developed, well nourished. HEENT: Pupils are round and equally reacting to light. EOMI. No scleral icterus. No conjunctival pallor. Normocephalic, atraumatic. No pharyngeal erythema. No thyromegaly. CARDIOVASCULAR: S1 and S2 present. No murmurs, rubs, or gallops. PULMONARY: Minimally decreased air entry into bilateral lung kumar and crackles or in the left lower lung bases ABDOMEN: Soft, nontender, nondistended, normoactive bowel sounds. No palpable organomegaly. MUSCULOSKELETAL: No joint swelling or deformity. EXTREMITIES: No cyanosis, clubbing, or pedal edema. NEUROLOGICAL: Gross neurological examination did not reveal any focal deficits. SKIN: No rashes. Assessment and Plan Plan: -Hypoxemia and acute hypoxic respiratory failure possibility of interstitial pneumonia, patient was started an above-mentioned antibiotics. Patient may have bronchopneumonia of right upper lobe which is comminuted acquired Possible COPD exacerbation -Chronic lymphocytic leukemia -COPD without any acute exacerbation - gastroesophageal reflux disease -History of smoking active smoking. Plan - Discharge Summary Discharge Rx Participant: No New Discharge Prescriptions: New Levofloxacin [Levaquin] 750 mg PO DAILY #5 tab predniSONE 10 mg PO DIRECTED #30 tab Budesonide-Formot 160-4.5 Mcg [Symbicort 160-4.5 Mcg Inhaler] 2 puff INHALATION BID 30 Days #1 inhaler Ipratropium-Albuterol Nebulize [Duoneb 0.5 mg-3 mg/3 ml Soln] 3 ml INHALATION QID 30 Days #5 box Continue Zolpidem [Ambien] 10 mg PO HS PRN PRN Reason: sleeplessness Indapamide [Lozol] 2.5 mg PO DAILY Aspirin [Adult Low Dose Aspirin EC] 81 mg PO DAILY Balsalazide Disodium 1,500 mg PO BID-W/MEALS Omeprazole [PriLOSEC] 40 mg PO BID Discontinued Nitrofurantoin Monohyd/M-Cryst [Macrobid] 100 mg PO Q12HR Discharge Medication List Aspirin [Adult Low Dose Aspirin EC] 81 mg PO DAILY 06/05/16 [History] Indapamide [Lozol] 2.5 mg PO DAILY 06/05/16 [History] Zolpidem [Ambien] 10 mg PO HS PRN 06/05/16 [History] Balsalazide Disodium 1,500 mg PO BID-W/MEALS 12/06/16 [History] Omeprazole [PriLOSEC] 40 mg PO BID 06/17/17 [History] Budesonide-Formot 160-4.5 Mcg [Symbicort 160-4.5 Mcg Inhaler] 2 puff INHALATION BID 30 Days #1 inhaler 06/20/17 [Rx] Ipratropium-Albuterol Nebulize [Duoneb 0.5 mg-3 mg/3 ml Soln] 3 ml INHALATION QID 30 Days #5 box 06/20/17 [Rx] Levofloxacin [Levaquin] 750 mg PO DAILY #5 tab 06/20/17 [Rx] predniSONE 10 mg PO DIRECTED #30 tab 06/20/17 [Rx] Follow up Appointment(s)/Referral(s): Reece Pierce MD [STAFF PHYSICIAN] - 1 Week (Patient to call office on 06/23/2017 to schedule appointment.) Kb Beatty DO [Doctor of Osteopathic Medicine] - 06/26/17 9:00 am Activity/Diet/Wound Care/Special Instructions: O2 2L via nasal cannula to be arranged for home Discharge Disposition: HOME SELF-CARE
[2017-06-21 11:30] VITALS: PULSE 87
--- NOTE | 2017-06-21 13:13 | P.PN ---
Subjective Progress Note Date: 06/21/17 Principal diagnosis: Acute hypoxic respiratory failure secondary to an acute exacerbation of chronic obstructive pulmonary disease, complicated by bronchopneumonia the right lower lobe. This is a 66-year-old female who was seen by the oncologist yesterday in his office. The patient apparently has a recent diagnosis of chronic lymphocytic leukemia and was going to talk to the oncologist about treatment options. Apparently when she arrived in the office, she was short of breath. Her saturations were low. She was coughing up producing yellow-green phlegm. She apparently also just a lot of chest congestion. For that reason, she was sent over to the hospital as a direct admission. She was started on antibiotics. I' m asked to see her for possible pneumonia. She is a heavy smoker. She's been smoking a number of years. The patient has quit on and off. Anyway the patient 's chest x-ray showed a possible minimal infiltrate in the right lower lobe. It was certainly not very impressive. In addition, her cough was reminiscent of somebody with tracheobronchomalacia. Anyway, the patient is here for our evaluation. I did tell her that the evaluation and treatment with consist of 2 things, acute treatment of what appears to be a COPD exacerbation complicated by purulent tracheobronchitis and possible bronchopneumonia right lower lobe and also treatment for COPD which would better assessed in the outpatient setting. On 06/19/2017 patient is seen in follow-up. Denies any acute distress, denies any dyspnea, denies any fever or chills, or chest pain. On room air, with O2 sat at 93%, she is afebrile, hemodynamically stable. Lung sounds are positive for bibasilar rales, patient has a loose congested productive cough with production of white phlegm. She was initially on a combination of vancomycin and Levaquin, this was streamlined to monotherapy with Levaquin only per ID service recommendation. Blood and urine cultures are negative to date. Patient has been ambulating, tolerating activity fairly well. Continue with current plan of treatment, continue IV Solu-Medrol, nebulized treatments, we'll continue to follow. On 06/20/2017 patient seen in follow-up on medical surgical floor. Continues to improve, denies any worsening dyspnea, denies any fever or chills, chest pain. Still has a loose congested cough, she states last night she was able to bring up large amount of phlegm. Overall feeling better, is stable, patient is afebrile, on 2 L per nasal cannula with O2 sat 94%. Patient is on home oxygen, room air O2 sat was 88%. Blood and urine culture May negative, antibiotics have been streamlined to monotherapy with Levaquin per ID service recommendations, patient is on IV steroids, nebulized treatments. She is tolerating ambulation, today's lab work shows WBC of 25.7, electrolytes are within normal limits, B1 is 24, creatinine 0.60. Patient is complaining of some fatigue, overall making improvement. Initially it was thought that she could potentially go home today, per attending physician patient is staying for another 24 hours of inpatient treatment. The patient is seen again today 06/21/2017 in follow-up on the regular medical floor. She is awake and alert in no acute distress. She is desaturating into the 80s while ambulating on room air. She'll require home oxygen. She is nearly back to her baseline. She is a loose nonproductive cough. No fever chills or night sweats. Blood and urine cultures reveal no growth. Creatinine 0.60. She has been treated with bronchodilators, Pulmicort inhalations, IV Solu -Medrol and antibiotics in the form of Levaquin. Objective - Vital Signs Vital signs: Vital Signs Temp 98.0 F 06/21/17 07:00 Pulse 87 06/21/17 11:29 Resp 18 06/21/17 08:00 BP 161/96 06/21/17 07:00 Pulse Ox 94 L 06/21/17 11:45 Intake & Output 06/20/17 06/21/17 06/21/17 18:59 06:59 18:59 Intake Total 1800 480 Balance 1800 480 Weight 98 kg Intake: Oral 1800 480 Other: Voiding Method Toilet Toilet Toilet # Voids 3 2 - Exam No acute distress, oriented 3. Frequent barking congested vibratory cough reminiscent of tracheomalacia. HEENT examination is grossly unremarkable. Mucous membranes are moist. No oral lesions. Neck supple. Full range of motion. No adenopathy thyromegaly or neck vein distention. Cardiovascular examination reveals regular rhythm rate. S1-S2 normal. No S3 or S4. No discernible murmur noted. Lungs sounds are diminished, with rhonchi and wheezes. Patient has congested nonproductive cough Abdomen soft bowel sounds are heard. No masses or tenderness. Extremities are intact. No cyanosis clubbing or edema. Skin is without rash or lesion. Neurologic examination is brief but nonfocal. - Labs CBC & Chem 7: 06/20/17 05:24 06/21/17 07:11 Labs: Abnormal Lab Results - Last 24 Hours (Table) 06/20/17 06/20/17 06/21/17 Range/Units 17:07 19:37 07:11 Carbon Dioxide 31 H (22-30) mmol/L BUN 23 H (7-17) mg/dL Glucose 137 H (74-99) mg/dL POC Glucose (mg/dL) 145 H 206 H (75-99) mg/dL 06/21/17 06/21/17 Range/Units 07:19 11:15 Carbon Dioxide (22-30) mmol/L BUN (7-17) mg/dL Glucose (74-99) mg/dL POC Glucose (mg/dL) 135 H 146 H (75-99) mg/dL Microbiology - Last 24 Hours (Table) 06/17/17 18:38 Blood Culture - Preliminary Blood No Growth after 72 hours 06/17/17 18:01 Blood Culture - Preliminary Blood No Growth after 72 hours Assessment and Plan Assessment: Assessment: Acute hypoxic respiratory failure secondary to COPD exacerbation complicated by purulent tracheobronchitis and bronchopneumonia right lower lobe History of recently diagnosed chronic lymphocytic leukemia History of hypertension DJD by history History of diverticular disease and colitis Previous history of hernia repair, hysterectomy, joint replacement Previous history of heavy tobacco use Plan: The patient was seen and evaluated by Dr. Beatty. She is urged from the pulmonary standpoint. Complete her course of antibiotics. Complete a prednisone burst and taper. She will require home oxygen for now. She is again educated regarding the importance of complete smoking cessation. She will follow-up in our office in 1-2 weeks' time. We'll repeat a chest x-ray done. Once improved we'll perform full pulmonary function testing to evaluate the severity of her COPD and make further recommendations regarding maintenance medications. She is encouraged to call sooner with any recurrence of symptoms or other questions or concerns. I, the cosigning physician, performed a history & physical examination of the patient. Lungs sounds with faint end expiratory wheeze. Maintaining good O2 saturations in the 90s on 2 L/m per nasal cannula. I discussed the assessment and plan of care with my nurse practitioner, Serena Dixon. I attest to the above note as dictated by her.
--- NOTE | 2017-06-22 21:02 | P.PN ---
Subjective Progress Note Date: 06/19/17 Patient is a pleasant 66-year-old female came in as a direct admit from 's office as she was hypoxic patient doesn't use any oxygen patient is presently on 3 L of oxygen. Patient does smoke actively. Patient is comparing of cough with yellowish greenish sputum production denied any fever chills patient is found to have a leukocytosis neutrophilic leukocytosis patient does have history of chronic lymphocytic leukemia. Patient was complaining of chills but no fever chest x-ray was done which showed a few scores pulmonary markings and concern for interstitial pneumonia because of which patient was admitted patient's leukocytosis improved patient was started on Zosyn which was later discontinued because of her penicillin ALLERGY and patient will be started on a to ceftriaxone and cefepime patient was started on vancomycin I do not believe it's less today but infectious disease was consulted , but infectious disease decide about antibiotics. Patient may need further evaluation for pulmonary embolism with a CAT scan of the chest although pulmonary was consulted because of which led pulmonary decide about the CAT scan. Patient doesn't have any significant wheezing does have diffuse fine crackles consistent with interstitial pneumonia Review of Systems REVIEW OF SYSTEMS: CONSTITUTIONAL: No fever, no malaise, no fatigue. HEENT: No recent visual problems or hearing problems. Denied any sore throat. CARDIOVASCULAR: No chest pain, orthopnea, PND, no palpitations, no syncope. PULMONARY: As described in HPI GASTROINTESTINAL: No diarrhea, no nausea, no vomiting, no abdominal pain. Normoactive bowel sounds. NEUROLOGICAL: No headaches, no weakness, no numbness. HEMATOLOGICAL: Denies any bleeding or petechiae. GENITOURINARY: Denies any burning micturition, frequency, or urgency. MUSCULOSKELETAL/RHEUMATOLOGICAL: Denies any joint pain, swelling, or any muscle pain. ENDOCRINE: Denies any polyuria or polydipsia. The rest of the 14-point review of systems is negative. 06/19/17 vancomycin discontinued, continues on Levaquin as per ID. Tired, reports did not sleep well. Productive cough with clear sputum. Afebrile, blood in urine cultures negative. Maintaining O2 sats in the low 90s on room air. Objective - Vital Signs Vital signs: Vital Signs Temp 97.6 F 06/19/17 15:03 Pulse 76 06/19/17 15:26 Resp 22 06/19/17 16:13 BP 151/75 06/19/17 15:03 Pulse Ox 93 L 06/19/17 15:03 Intake & Output 06/18/17 06/19/17 06/19/17 18:59 06:59 18:59 Intake Total 575 1275 775 Balance 575 1275 775 Weight 98 kg Intake: Intake, IV Titration 575 1275 775 Amount Dextrose 5%-0.45% NaCl 1, 1025 375 000 ml @ 75 mls/hr IV . [id number] JULY Rx#:[id number] Levofloxacin 750Mg-D5w 150 150 Pmx 750 mg In Dextrose/ Water 1 150ml.bag @ 100 mls/hr IVPB Q24H JULY Rx#: [id number] Piperacillin-Tazobactam 3 50 .375 gm In Dextrose/Water 1 50ml.bag @ 12.5 mls/hr IVPB Q8HR JULY Rx#: [id number] Sodium Chloride 0.9% 1, 375 000 ml @ 75 mls/hr IV . [id number] JULY Rx#:[id number] Vancomycin 1,750 mg In 250 250 Sodium Chloride 0.9% 250 ml @ 125 mls/hr IVPB Q12H JULY Rx#:[id number] Other: Voiding Method Toilet Toilet Toilet # Voids 3 1 - Exam GENERAL: The patient is alert and oriented x3, no acute distress. Well developed , well nourished. HEENT: Pupils are round and equally reacting to light. EOMI. No scleral icterus. No conjunctival pallor. Normocephalic, atraumatic. No pharyngeal erythema. No thyromegaly. CARDIOVASCULAR: S1 and S2 present. No murmurs, rubs, or gallops. PULMONARY: As fine crackles in the posterior aspect of bilateral lungs predominantly in the right posterior lung kumar ABDOMEN: Soft, nontender, nondistended, normoactive bowel sounds. No palpable organomegaly. MUSCULOSKELETAL: No joint swelling or deformity. EXTREMITIES: No cyanosis, clubbing, or pedal edema. NEUROLOGICAL: Gross neurological examination did not reveal any focal deficits. SKIN: No rashes. - Labs CBC & Chem 7: 06/20/17 05:24 06/21/17 07:11 Labs: Abnormal Lab Results - Last 24 Hours (Table) 06/18/17 06/18/17 06/19/17 Range/Units 07:31 20:23 06:50 Glucose (74-99) mg/dL POC Glucose (mg/dL) 211 H 179 H (75-99) mg/dL Hemoglobin A1c 6.1 H (4.0-6.0) % 06/19/17 06/19/17 06/19/17 Range/Units 07:07 11:27 17:08 Glucose 178 H (74-99) mg/dL POC Glucose (mg/dL) 159 H 158 H (75-99) mg/dL Hemoglobin A1c (4.0-6.0) % Microbiology - Last 24 Hours (Table) 06/17/17 21:45 Urine Culture - Final Urine,Clean Catch 06/17/17 18:38 Blood Culture - Preliminary Blood No Growth after 24 hours 06/17/17 18:01 Blood Culture - Preliminary Blood No Growth after 24 hours Assessment and Plan Assessment: -Hypoxemia and acute hypoxic respiratory failure possibility of interstitial pneumonia, may have bronchopneumonia of right upper lobe which is comminuted acquired Possible COPD exacerbation -Chronic lymphocytic leukemia -COPD without any acute exacerbation - gastroesophageal reflux disease -History of smoking active smoking. Plan: Continue on current medication regime ,monitoring and symptomatic treatment. Maintain nebulized bronchodilators, steroids, antibiotics. Antibiotics as per infectious disease. Increase activity as tolerated. Prognosis guarded given multiple complex medical issues. The impression and plan of care has been dictated as directed. : I performed a history and examination of this patient, discussed the same with the dictator. I agree with the dictator's note ,documented as a scribe. Any additional findings or plans will be noted.
--- NOTE | 2017-06-22 21:10 | P.PN ---
Subjective Progress Note Date: 06/20/17 Patient is a pleasant 66-year-old female came in as a direct admit from 's office as she was hypoxic patient doesn't use any oxygen patient is presently on 3 L of oxygen. Patient does smoke actively. Patient is comparing of cough with yellowish greenish sputum production denied any fever chills patient is found to have a leukocytosis neutrophilic leukocytosis patient does have history of chronic lymphocytic leukemia. Patient was complaining of chills but no fever chest x-ray was done which showed a few scores pulmonary markings and concern for interstitial pneumonia because of which patient was admitted patient's leukocytosis improved patient was started on Zosyn which was later discontinued because of her penicillin ALLERGY and patient will be started on a to ceftriaxone and cefepime patient was started on vancomycin I do not believe it's less today but infectious disease was consulted , but infectious disease decide about antibiotics. Patient may need further evaluation for pulmonary embolism with a CAT scan of the chest although pulmonary was consulted because of which led pulmonary decide about the CAT scan. Patient doesn't have any significant wheezing does have diffuse fine crackles consistent with interstitial pneumonia Review of Systems REVIEW OF SYSTEMS: CONSTITUTIONAL: No fever, no malaise, no fatigue. HEENT: No recent visual problems or hearing problems. Denied any sore throat. CARDIOVASCULAR: No chest pain, orthopnea, PND, no palpitations, no syncope. PULMONARY: As described in HPI GASTROINTESTINAL: No diarrhea, no nausea, no vomiting, no abdominal pain. Normoactive bowel sounds. NEUROLOGICAL: No headaches, no weakness, no numbness. HEMATOLOGICAL: Denies any bleeding or petechiae. GENITOURINARY: Denies any burning micturition, frequency, or urgency. MUSCULOSKELETAL/RHEUMATOLOGICAL: Denies any joint pain, swelling, or any muscle pain. ENDOCRINE: Denies any polyuria or polydipsia. The rest of the 14-point review of systems is negative. 06/19/17 vancomycin discontinued, continues on Levaquin as per ID. Tired, reports did not sleep well. Productive cough with clear sputum. Afebrile, blood in urine cultures negative. Maintaining O2 sats in the low 90s on room air. 06/20/17 maintained on IV antibiotics, nebulized bronchodilators, steroids. Complains of increased tiredness, fatigue. Oxygen requirements have worsened; now requiring 2 L nasal cannula O2 to maintain O2 sats of 94%.afebrile. Objective - Vital Signs Vital signs: Vital Signs Temp 98.0 F 06/21/17 07:00 Pulse 87 06/21/17 11:29 Resp 18 06/21/17 08:00 BP 161/96 06/21/17 07:00 Pulse Ox 94 L 06/21/17 11:45 - Labs CBC & Chem 7: 06/20/17 05:24 06/21/17 07:11 Labs: Microbiology - Last 24 Hours (Table) 06/17/17 18:38 Blood Culture - Preliminary Blood No Growth after 120 hours 06/17/17 18:01 Blood Culture - Preliminary Blood No Growth after 120 hours Assessment and Plan Assessment: -Hypoxemia and acute hypoxic respiratory failure possibility of interstitial pneumonia, may have bronchopneumonia of right upper lobe which is comminuted acquired Possible COPD exacerbation -Chronic lymphocytic leukemia -COPD without any acute exacerbation - gastroesophageal reflux disease -History of smoking active smoking. Plan: Continue on current medication regime ,monitoring and symptomatic treatment. Initially had planned for discharge today but given patient's oxygen requirement has worsened, we'll continue monitoring overnight. Maintain nebulized bronchodilators, steroids, antibiotics. Increase activity as tolerated. Discharge planning in progress for tomorrow. The impression and plan of care has been dictated as directed. : I performed a history and examination of this patient, discussed the same with the dictator. I agree with the dictator's note ,documented as a scribe. Any additional findings or plans will be noted.
--- NOTE | 2017-06-26 09:10 | CDI ---
Last Revision, February 2017 Documentation Clarification Form Date: 06/26/17 From: Shanika Villanueva Phone: If you have a question regarding this query, please contact Adele Walsh at [phone] between 8am and 5pm Admit Date: 06/17/2017 5:09:00 PM Patient Name: Ashley Abarca Visit Number: [id number] Discharge Date: 06/21/17 ATTENTION: The Clinical Documentation Specialists (CDI) and [facility] Coding Staff appreciate your assistance in clarifying documentation. Please respond to the clarification below the line at the bottom and electronically sign. The CDI & [facility] Coding staff will review the response and follow-up if needed. Please note: Queries are made part of the Legal Health Record. If you have any questions, please contact the author of this message via ITS. Dr. Lorna Ureña Per Dr. Chandler consult note, the patient presented with sepsis with leukocytosis and tachycardia secondary to pneumonia. Per Anna Hinojosa's consult note and 06/17 progress note, a full septic work-up was performed prior to antibiotic initiation. History/Risk Factors: Patient admitted with pneumonia and purulent tracheobronchitis. Clinical Indicators: tachycardia and leukocytosis WBC/Left Shift 30.5/26.8 on admission Lactic acid: 1.5 Blood cultures: No growth after 144 hours Vitals signs on admission: T. 99.1, P 115, R. 22, BP 193/74 Antibiotics: IV Rocephin, IV Levaquin, IV Vancomycin In your professional opinion, please clarify if these findings signify one of the following conditions? Sepsis ruled out Severe sepsis Other, please specify Unable to determine Link or clarify if there is associated (due to/with): Organ failure Shock Sepsis Ruled In MTDD
--- NOTE | 2017-06-26 09:23 | CDI ---
Last Revision, February 2017 Documentation Clarification Form Date: 06/26/17 From: Shanika Villanueva Phone: If you have a question regarding this query, please contact Adele Walsh at [phone] between 8am and 5pm Admit Date: 06/17/2017 5:09:00 PM Patient Name: Ashley Abarca Visit Number: [id number] Discharge Date: 06/21/17 ATTENTION: The Clinical Documentation Specialists (CDI) and [facility] Coding Staff appreciate your assistance in clarifying documentation. Please respond to the clarification below the line at the bottom and electronically sign. The CDI & [facility] Coding staff will review the response and follow-up if needed. Please note: Queries are made part of the Legal Health Record. If you have any questions, please contact the author of this message via ITS. Dr. Lorna Ureña Conflicting documentation has been found in the medical record. Possible COPD exacerbation and COPD without any acute exacerbation is documented in the plan in the discahrge summary and in your 06/19 and 06/22 progress notes. Documentation in Dr. Beatty's and Anna Hinojosa's notes state COPD exacerbation. History/Risk Factors: Patient has a history of COPD and a history of frequent episodes of bronchitis and something like perfumes or plants causing an exacerbation. Clinical Indicators: shortness of breath, O2 sat 92 on oxygen Treatment: Duoneb & pulmicort inhalation treatments, IV solu-medrol In your opinion what is the most clinically appropriate diagnosis for this patient? COPD exacerbation ruled in COPD exacerbation ruled out Other explanation of clinical findings Unable to determine (no explanation for clinical findings) Appropriate documentation was already dictated in the note MTDD
--- NOTE | 2017-06-26 09:29 | CDI ---
Last Revision, February 2017 Documentation Clarification Form Date: 06/26/17 From: Shanika Villanueva Phone: If you have a question regarding this query, please contact Adele Walsh at [phone] between 8am and 5pm Admit Date: 06/17/2017 5:09:00 PM Patient Name: Ashley Abarca Visit Number: [id number] Discharge Date: 06/21/17 ATTENTION: The Clinical Documentation Specialists (CDI) and [facility] Coding Staff appreciate your assistance in clarifying documentation. Please respond to the clarification below the line at the bottom and electronically sign. The CDI & [facility] Coding staff will review the response and follow-up if needed. Please note: Queries are made part of the Legal Health Record. If you have any questions, please contact the author of this message via ITS. Dr. Kb Beatty Purulent tracheobronchitis is documented in your progress notes and consult note. 1. Please clarify the acuity of bronchitis: Acute Acute on chronic Other (please specify) Clinically unable to determine acute on chronic MTDD
== END 2017-06-21 12:55 | disposition home or self-care (01) | DRG 871 ==
LOC: 5MS5E 17:09
PROVIDERS: ADMIT Internal Medicine; ATTEND Internal Medicine
DX: A41.9 Sepsis, unspecified organism (principal); J18.0 Bronchopneumonia, unspecified organism; J96.01 Acute respiratory failure with hypoxia; C91.10 Chronic lymphocytic leukemia of B-cell type not having achieved remission; J84.9 Interstitial pulmonary disease, unspecified; J44.0 Chronic obstructive pulmonary disease with (acute) lower respiratory infection; J44.1 Chronic obstructive pulmonary disease with (acute) exacerbation; N39.0 Urinary tract infection, site not specified; Z99.81 Dependence on supplemental oxygen; J20.9 Acute bronchitis, unspecified; J39.8 Other specified diseases of upper respiratory tract; E66.9 Obesity, unspecified; F17.210 Nicotine dependence, cigarettes, uncomplicated; I10 Essential (primary) hypertension; K21.9 Gastro-esophageal reflux disease without esophagitis; K57.90 Diverticulosis of intestine, part unspecified, without perforation or abscess without bleeding; M19.90 Unspecified osteoarthritis, unspecified site; Z79.82 Long term (current) use of aspirin; Z79.899 Other long term (current) drug therapy; Z88.0 Allergy status to penicillin; Z88.8 Allergy status to other drugs, medicaments and biological substances; Z91.048 Other nonmedicinal substance allergy status; Z86.010 Personal history of colon polyps; Z90.710 Acquired absence of both cervix and uterus; Z68.33 Body mass index [BMI] 33.0-33.9, adult; Z90.49 Acquired absence of other specified parts of digestive tract; Z96.652 Presence of left artificial knee joint; Z98.42 Cataract extraction status, left eye; Z98.41 Cataract extraction status, right eye; Z96.1 Presence of intraocular lens; Z82.49 Family history of ischemic heart disease and other diseases of the circulatory system; Z80.9 Family history of malignant neoplasm, unspecified
CPT/HCPCS: 71046; 80048; 80053; 80202; 81001; 82784; 83036; 83605; 83615; 83735; 84550; 85025; 85027; 87040; 87086; 87502; 94640; 94760

== ENCOUNTER → 2018-02-25 | Outpatient (CLI) | payer MEDICARE, BC ==
--- NOTE | 2018-02-25 11:58 | MM ---
Reason for exam: screening (asymptomatic). Last mammogram was performed 1 year ago. History: Patient has history of other cancer at age 66. Benign stereotactic core biopsy of the left breast, 2009. Physical Findings: A clinical breast exam by your physician is recommended on an annual basis and results should be correlated with mammographic findings. MG 3D Screening Mammo W/Cad Bilateral CC and MLO view(s) were taken. Prior study comparison: February 24, 2017, mammogram. August 11, 2015, mammogram. August 04, 2015, mammogram. September 13, 2013, mammogram. The breast tissue is heterogeneously dense. This may lower the sensitivity of mammography. There are benign appearing round linear calcifications bilaterally. Previous mammotome biopsy in the left breast. There is chronic nodularity in the right breast. Asymmetric breast tissue left middle posterior depth, stable from 2016. There is no discrete abnormality. ASSESSMENT: Benign, BI-RAD 2 RECOMMENDATION: Routine screening mammogram of both breasts in 1 year.
== END ==
LOC: RADMAMWWP 08:45
PROVIDERS: ATTEND Family Medicine
DX: Z12.31 Encounter for screening mammogram for malignant neoplasm of breast (principal)
CPT/HCPCS: 77063; 77067

== ENCOUNTER → 2018-04-14 | Outpatient (CLI) | payer MEDICARE, BC ==
--- NOTE | 2018-04-14 13:39 | XR ---
EXAMINATION TYPE: XR shoulder complete BILAT DATE OF EXAM: 04/14/2018 CLINICAL HISTORY: pain TECHNIQUE: Three views of the right shoulder are obtained. COMPARISON: None FINDINGS: There is no acute fracture/dislocation evident. There is evidence of calcific tendinopathy at the insertion of the supraspinatus tendon. The acromioclavicular and glenohumeral joint spaces ap pear mildly narrowed. The visualized ribs are intact and unremarkable. IMPRESSION: 1. There is no acute fracture or dislocation. ICD 10 NO FRACTURE, INITIAL EVALUATION EXAMINATION TYPE: XR shoulder complete BILAT DATE OF EXAM: 04/14/2018 CLINICAL HISTORY: pain COMPARISON: NONE TECHNIQUE: Three views of the left shoulder are obtained. FINDINGS: There is no acute fracture/dislocation evident. The acromioclavicular and glenohumeral aixa int spaces appear mildly narrowed. The visualized ribs are intact and unremarkable.
== END | disposition home or self-care (01) ==
LOC: RADXRMAIN 13:02
PROVIDERS: ATTEND Family Medicine
DX: M25.511 Pain in right shoulder (principal); M25.512 Pain in left shoulder

== ENCOUNTER → 2018-06-18 | Outpatient (CLI) | payer MEDICARE, BC ==
--- NOTE | 2018-06-18 19:34 | MR ---
EXAMINATION TYPE: MR cervical spine wo con DATE OF EXAM: 06/18/2018 COMPARISON: Prior cervical spine MRI dated 09/15/2014 HISTORY: Cervicalgia TECHNIQUE: Multiplanar, multisequence images of the cervical spine were acquired. C2-C3: Stable, there is again noted left-sided foraminal encroachment, no significant central stenosi s, minimal posterior broad-based disc bulge. C3-C4: Bilateral foraminal encroachment is present due to lateral extension of endplate disc complexe s similar to prior exam. No significant central stenosis. C4-C5: Stable in appearance. Mild central stenosis. Mild bilateral foraminal encroachment. Posterior extension of endplate disc complex causes anterior mass effect on the thecal sac and possibly cord co ntact. C5-C6: There is progression of severe central canal stenosis. There is bilateral foraminal encroachme nt which is likely progressed in the interval. C6-C7: Moderate to severe central stenosis has progressed. Bilateral foraminal encroachment is presen t right greater than left. C7-T1: No evidence for degenerative disc disease. No disc bulge/herniation or protrusion. No Canal stenosis. Foramina are patent bilaterally. Minimal anterolisthesis grade 1. Cervical segments are intact. There is normal alignment. Cervical spinal cord is increased anterior ly towards the left at C6 on axial image 19 on T2-weighted images thought to be stable from prior exa m. Craniovertebral junction relationships are within normal limits. There is multilevel spondylosis with endplate discogenic marrow signal change. Cervical vertebral bodies show preserved height and a lignment. Loss of disc height signal is greatest at C4-5, C5-6 and C6-7. IMPRESSION: Multilevel degenerative disc disease, spinal stenosis, foraminal encroachment has progressed in the i nterval. There are cord signal changes compatible with myelomalacia similar to prior exam.
== END ==
LOC: RADMRIMAIN 07:49
PROVIDERS: ATTEND Family Medicine
DX: M48.02 Spinal stenosis, cervical region (principal); M50.30 Other cervical disc degeneration, unspecified cervical region
CPT/HCPCS: 72141

== ENCOUNTER 2018-10-08 12:50 | Emergency (ER) | payer MEDICARE, BC ==
[2018-10-08 13:05] VITALS: PULSE 80; RESP 18
--- NOTE | 2018-10-08 14:53 | US ---
EXAMINATION TYPE: US venous doppler duplex LE RT DATE OF EXAM: 10/08/2018 2:45 PM COMPARISON: CLINICAL HISTORY: Pain. No hx of blood clots. On baby aspirin. Pain. No redness. No swelling. SIDE PERFORMED: Right TECHNIQUE: The lower extremity deep venous system is examined utilizing real time linear array sonog lorin with graded compression, doppler sonography and color-flow sonography. VESSELS IMAGED: External Iliac Vein (EIV) Common Femoral Vein Deep Femoral Vein Greater Saphenous Vein * Femoral Vein Popliteal Vein Small Saphenous Vein * Proximal Calf Veins (* superficial vessels) Right Leg: Negative for DVT. Complex appearing fluid collection seen posterior knee = 6.2 x 3.1 x 2 .0 cm IMPRESSION: 1. No diagnostic evidence of DVT as visualized. 2. Complex popliteal fossa fluid collection measuring 6.2 cm. This could represent a complicated popl iteal fossa cyst. Other etiologies not excluded correlate with MRI.
[2018-10-08] MEDS ORDERED: ACET/COD 300 MG/30 MG STARTER PACK 6 TAB BTL PO STA (15:35)
[2018-10-08] MEDS ORDERED: LIDOCAINE 5% PATCH TOPICAL STA (15:35)
--- NOTE | 2018-10-08 15:35 | ED ---
Extremity Problem HPI - General Source: patient Mode of arrival: wheelchair Limitations: no limitations <Quynh Sheffield - Last Filed: 10/08/18 18:55> <Kb Mccoy - Last Filed: 10/08/18 19:09> - General Chief complaint: Extremity Problem,Nontraumatic Stated complaint: Leg/knee pain Time Seen by Provider: 10/08/18 13:50 - History of Present Illness Initial comments: 68-year-old female with history of osteoarthritis of the knees bilaterally previous left TKA presenting today for chief complaint of right knee pain. Patient states for the past day she has had right knee pain in the posterior aspect. She states it is sharp without radiation. She states that increases with full flexion as well as weightbearing. She states it has been bugging her at night. Patient denies any swelling or redness of the knee she denies any flulike symptoms. Patient denies any recent upper respiratory infections. Patient states that she was concerned about possible blood clot she denies any history of blood clots she denies recent surgeries. She denies any active cancers. Patient denies any anticoagulation use. Remaining review of systems negative upon arrival patient is able to her she appears well there is no signs of acute distress. Afebrile. (Quynh Sheffield) - Related Data Home Medications Medication Instructions Recorded Confirmed Aspirin [Adult Low Dose Aspirin EC] 81 mg PO DAILY 06/05/16 06/17/17 Indapamide [Lozol] 2.5 mg PO DAILY 06/05/16 06/17/17 Zolpidem [Ambien] 10 mg PO HS PRN 06/05/16 06/17/17 Balsalazide Disodium 1,500 mg PO BID-W/MEALS 12/06/16 06/17/17 Omeprazole [PriLOSEC] 40 mg PO BID 06/17/17 06/17/17 Previous Rx's Medication Instructions Recorded Budesonide-Formot 160-4.5 Mcg 2 puff INHALATION BID 30 Days #1 06/20/17 [Symbicort 160-4.5 Mcg Inhaler] inhaler Ipratropium-Albuterol Nebulize 3 ml INHALATION QID 30 Days #5 box 06/20/17 [Duoneb 0.5 mg-3 mg/3 ml Soln] Levofloxacin [Levaquin] 750 mg PO DAILY #5 tab 06/20/17 predniSONE 10 mg PO DIRECTED #30 tab 06/20/17 Allergies Allergy/AdvReac Type Severity Reaction Status Date / Time perfume Allergy Unknown Dyspnea Verified 06/17/17 18:36 amoxicillin [From Augmentin] Allergy Rash/Hives Verified 06/17/17 18:36 clavulanic acid Allergy Rash/Hives Verified 06/17/17 18:36 [From Augmentin] Review of Systems ROS Other: All systems not noted in ROS Statement are negative. <Quynh Sheffield - Last Filed: 10/08/18 18:55> ROS Other: All systems not noted in ROS Statement are negative. <Kb Mccoy - Last Filed: 10/08/18 19:09> ROS Statement: Those systems with pertinent positive or pertinent negative responses have been documented in the HPI. Past Medical History Past Medical History: Cancer, COPD, Hypertension, Osteoarthritis (OA) Additional Past Medical History / Comment(s): HX DIVERTICULOSIS AND COLITIS,, HX colon POLYP, . STATES TOLD SHE HAS COPD. DDD, NECK PAIN, leukemia History of Any Multi-Drug Resistant Organisms: None Reported Past Surgical History: Appendectomy, Hernia Repair, Hysterectomy, Joint Replacement Additional Past Surgical History / Comment(s): [facility]. HERNIA WITH MESH., LEFT TOTAL KNEE, AYAN CATARACTS, egd w/bx "neg", neck surgery Past Anesthesia/Blood Transfusion Reactions: No Reported Reaction Past Psychological History: No Psychological Hx Reported Smoking Status: Former smoker Past Alcohol Use History: None Reported Past Drug Use History: None Reported - Past Family History Mother Family Medical History: Cancer Father Family Medical History: Myocardial Infarction (MD) <Quynh Sheffield - Last Filed: 10/08/18 18:55> General Exam Limitations: no limitations <Quynh Sheffield - Last Filed: 10/08/18 18:55> - General Exam Comments Initial Comments: General: The patient is awake and alert, in no distress, and does not appear acutely ill. Eye: Pupils are equal, round and reactive to light, extra-ocular movements are intact. No nystagmus. There is normal conjunctiva bilaterally. No signs of icterus. Ears, nose, mouth and throat: There are moist mucous membranes and no oral lesions. Neck: The neck is supple, there is no tenderness or JVD. Cardiovascular: There is a regular rate and rhythm. No murmur, rub or gallop is appreciated. Respiratory: Lungs are clear to auscultation, respirations are non-labored, breath sounds are equal. No wheezes, stridor, rales, or rhonchi. Musculoskeletal: Upon inspection of the nares bilaterally there is no soft tiss ue swelling of the right knee in comparison the left there is a linear scar over the anterior left knee. Patient is able to fully flex extend both passive and actively of the right knee. Patient is point localized tenderness of the right posterior popliteal fossa. There is no evidence of mass. No warmth to palpation of the knee joint. Patient is ambulatory without difficulty. Sensation intact the proximal distal to injury site. Dorsalis pedis pulses are +2 equal comparison bilaterally. Strength 5/5. No tenderness of calf or LE edema Neurological: A&O x 3. CN II-XII intact, There are no obvious motor or sensory deficits. Coordination appears grossly intact. Speech is normal. Skin: Skin is warm and dry and no rashes or lesions are noted. Psychiatric: Cooperative, appropriate mood & affect, normal judgment. (Quynh Sheffield) Course <Kb Mccoy - Last Filed: 10/08/18 19:09> Vital Signs 10/08/18 10/08/18 12:59 15:47 Temperature 97.8 F 97.9 F Pulse Rate 80 80 Respiratory 18 18 Rate Blood Pressure 182/75 158/70 O2 Sat by Pulse 95 96 Oximetry - Reevaluation(s) Reevaluation #1: 10/08/18 19:09 ISSAC supervision: I proceeded to evaluate this case and did review the imaging as well as discussed the findings with the physician household assistant. I do agree with the assessment and plan the presentation is consistent with a Lloyd's cyst (Kb Cortes) Medical Decision Making <Quynh Sheffield - Last Filed: 10/08/18 18:55> - Medical Decision Making 68-year-old female presenting for posterior right knee pain. Patient states her concern was a blood clot. Patient denies history. Ultrasound revealed a cystic-like lesion in the popliteal fossa most likely Lloyd's cyst. Patient has no evidence on physical examination consistent with a septic joint. Patient appears well afebrile. Able to ambulate. Discussed findings with patient as well as the importance of outpatient orthopedic follow-up. After discussing case with attending provider Dr. Mccoy we feel patient is stable for discharge with outpatient follow-up. Patient is agreeable plan aware of return parameters (Quynh Sheffield) Disposition Is patient prescribed a controlled substance at d/c from ED?: No Time of Disposition: 15:35 <Quynh Sheffield - Last Filed: 10/08/18 18:55> <Kb Mccoy - Last Filed: 10/08/18 19:09> Clinical Impression: Popliteal cyst, unruptured Disposition: HOME SELF-CARE Condition: Good Instructions (If sedation given, give patient instructions): Bakers Cyst (ED) Additional Instructions: Please use medication as discussed. Please follow-up with your orthopedic surgeon this week. Please return to emergency room if the symptoms increase or worsen or for any other concerns. Referrals: Reece Pierce MD [Primary Care Provider] - 1-2 days Nba Moody DO [Doctor of Osteopathic Medicine] - 1-2 days
[2018-10-08 15:47] VITALS: BP 158/70; TEMP 97.9
== END 2018-10-08 15:47 | disposition home or self-care (01) ==
LOC: EC 12:50
DX: M71.21 Synovial cyst of popliteal space [Baker], right knee (principal); I10 Essential (primary) hypertension; M19.90 Unspecified osteoarthritis, unspecified site; Z85.6 Personal history of leukemia; Z96.652 Presence of left artificial knee joint; Z87.891 Personal history of nicotine dependence; Z79.82 Long term (current) use of aspirin; Z79.899 Other long term (current) drug therapy; Z91.048 Other nonmedicinal substance allergy status; Z88.0 Allergy status to penicillin
CPT/HCPCS: 99283

== ENCOUNTER → 2019-01-04 | Outpatient (CLI) | payer MEDICARE, BC ==
--- NOTE | 2019-01-04 12:30 | XR ---
EXAMINATION TYPE: XR cervical spine limited DATE OF EXAM: 01/04/2019 COMPARISON: None HISTORY: Spondylosis with myelopathy postsurgical changes TECHNIQUE: 3 view cervical spine FINDINGS: Anterior cervical fusion is present C4-C7. Some disc spacers are utilized. Chitina disc spac es are preserved. Vertebral body heights appear preserved. Posterior spinal lamellar line is intact. Prevertebral space is normal. Some facet degenerative changes are noted. IMPRESSION: 1. No acute changes post anterior cervical fusion.
== END | disposition home or self-care (01) ==
LOC: RADXRWHC 12:10
DX: M47.812 Spondylosis without myelopathy or radiculopathy, cervical region (principal)
CPT/HCPCS: 72040

== ENCOUNTER → 2019-01-21 | Outpatient (CLI) | payer MEDICARE, BC | END | disposition home or self-care (01) | LOC: CPPFTMAIN 12:58 | PROVIDERS: ATTEND Internal Medicine Critical Care Medicine | DX: J44.9 Chronic obstructive pulmonary disease, unspecified (principal); J98.8 Other specified respiratory disorders | CPT/HCPCS: 94060; 94726; 94729 ==

== ENCOUNTER → 2019-02-15 | Outpatient (CLI) | payer MEDICARE, BC | END | disposition home or self-care (01) | LOC: LABPAT 14:45 | PROVIDERS: ATTEND Orthopaedic Surgery | DX: Z01.812 Encounter for preprocedural laboratory examination (principal) | CPT/HCPCS: 87070 ==

== ENCOUNTER 2019-03-08 08:15 | Day surgery (SDC) | payer MEDICARE, BC ==
[2019-03-05 09:02] VITALS: BMI 36.0
--- NOTE | 2019-03-07 19:59 | HP ---
HISTORY AND PHYSICAL REASON FOR ADMISSION: Surgery scheduled for 03/08/2019. HISTORY OF PRESENT ILLNESS: Ashley Abarca is a 68-year-old patient seen with symptomatic right knee osteoarthritis. We discussed treatment options with her. She elected to proceed with right total knee arthroplasty. Consent regarding the procedure was obtained. Medical clearance was provided by Dr. Pierce. PAST MEDICAL HISTORY: Hypertension. PAST SURGICAL HISTORY: Noncontributory. MEDICATIONS: Lozol. ALLERGIES: BACTRIM. SOCIAL HISTORY: She denies current tobacco use. PHYSICAL EXAMINATION: Evaluation of the right knee range of motion is -5/6-115. Tenderness along the medial joint line. Crepitus along the medial compartment with range of motion. Pain with patellofemoral compression. Ligaments are stable. Hip rotation is without pain. Distal neurovascular exam is intact. RADIOGRAPHS: Right knee radiographs reveal severe medial and severe patellofemoral compartment osteoarthritis. IMPRESSION: 1. Right knee osteoarthritis. 2. Hypertension. PLAN: Right total knee arthroplasty. Surgery 03/08/2019. MMODL / IJN: [id number] /
[~2019-03-08 08:15] MED LIST changes: +ACETAMINOPHEN TAB 500 MG TAB PO ONE; +DEXAMETHASONE SOD PHOSPHATE 10 MG/ML 1 ML VIAL IV ONE; +HYDROmorphone 0.5 MG/0.5 ML SYRINGE IVP PRN; -LIDOCAINE 1% 20 ML VIAL (10MG/ML) FOR IV START INTRADERMA PRN; +MELOXICAM 7.5 MG TAB PO ONE; +MIDAZOLAM 2 MG/2 ML VIAL IV PRN; +ONDANSETRON 4 MG/2 ML VIAL IVP ONE; +ROPIVACAINE 0.2%-NS ON-Q PUMP 1,090 MG, EMPTY PAIN BALL 1 EACH MISCELLANE PRN; +ROPIVACAINE 246.25 MG, EPINEPHrine 0.5 MG, KETOROLAC 30 MG, cloNIDine HCL/PF 80 MCG, WA... MISCELLANE ONE; +TRANEXAMIC ACID 1,000 MG in SODIUM CHLORIDE 0.9% 100 ML IVPB ONE
[2019-03-08] MEDS ORDERED: LIDOCAINE 1% 20 ML VIAL (10MG/ML) FOR IV START INTRADERMA ONE (08:46)
[2019-03-08] MEDS ORDERED: fentaNYL (PF) 50 MCG/ML 2 ML AMP ONE (10:21)
[2019-03-08] MEDS ORDERED: SODIUM CHLORIDE 0.9% 100 ML BAG ONE (10:21)
[2019-03-08] MEDS ORDERED: TRANEXAMIC ACID 1,000 MG/10 ML VIAL ONE (10:21)
[2019-03-08] MEDS ORDERED: PROPOFOL 10 MG/ML 20 ML VIAL IV ONE (10:21)
[2019-03-08] MEDS ORDERED: MIDAZOLAM 2 MG/2 ML VIAL ONE (10:21)
[2019-03-08] MEDS ORDERED: ceFAZolin 3,000 MG in SODIUM CHLORIDE 0.9% IRRIGATIO 3,000 ML IRRIGATION ONE (10:59)
[2019-03-08] MEDS ORDERED: LACTATED RINGERS 1,000 ML IV ONE (11:15)
--- NOTE | 2019-03-08 11:45 | P.ANPRN ---
Procedure Note - Anesthesia - Nerve Block Performed Right Adductor Canal Infusion Time Out Performed: Yes Date of Procedure: 03/08/19 Location of Patient: PreOp Indication: Acute Post-Operative Pain, Dx/Pain Location, Requested by Surgeon Sedation Type: Sedate with meaningful contact maintained Preparation: Sterile Prep Position: Supine Catheter: Indwelling Needle Types: Pajunk Needle Gauge: 21 Ultrasound used to visualize needle placement: Yes Ultrasound used to observe medication spread: Yes Injectate: 0.5% Ropivacaine (see comment for volume) (20ML) Blood Aspirated: Yes Pain Paresthesia on Injection Noted: Yes Resistance on Injection: Normal Image Stored and Saved: Yes Events: Uneventful and Well Tolerated
[2019-03-08] MEDS ORDERED: HYDROmorphone 0.5 MG/0.5 ML SYRINGE IVP PRN ×3 (12:18)
[2019-03-08] MEDS ORDERED: ONDANSETRON 4 MG/2 ML VIAL IVP PRN (12:18)
[2019-03-08] MEDS ORDERED: NALOXONE 0.4 MG/ML 1 ML VIAL IV PRN (12:18)
[2019-03-08] MEDS ORDERED: HYDROcodone/APAP 5-325MG 1 EACH TAB PO PRN (12:18)
--- NOTE | 2019-03-08 12:18 | P.OP ---
Date of Procedure: 03/08/19 Preoperative Diagnosis: Right knee osteoarthritis Postoperative Diagnosis: Right knee osteoarthritis Procedure(s) Performed: Right total knee arthroplasty Implants: 1. Microport evolution size 5 right cemented femur 2. Microport evolution size 5 right cemented tibial baseplate 3. Microport evolution size 5 CS 12 mm polyethylene tibial insert 4. Microport advance 32 mm all polyethylene cemented patella Anesthesia: regional (Adductor canal catheter), local, spinal Surgeon: Nba Moody Car Attendant #1: Alfredito Levine Estimated Blood Loss (ml): 50 Pathology: other (Bone) Condition: stable Disposition: PACU Indications for Procedure: 68-year-old patient seen with symptomatic right knee osteoarthritis. After having treatment options discussed, she elected to proceed with total knee arthroplasty Operative Findings: see description of procedure Description of Procedure: Patient was taken to the operative suite after having an adductor canal catheter placed by the department of anesthesia for postoperative pain management. Patient underwent a spinal anesthetic by the department of anesthesia. Patient was given preoperative IV intake antibiotics and TXA. A well-padded tourniquet was placed about the right lower extremity. The lower extremity was then prepped and draped in the normal sterile orthopedic fashion. The extremity was elevated, a tourniquet was insufflated to 300. A standard anterior incision was made sharply through skin. Dissection was taken down through the subcutaneous soft tissues down to the extensor mechanism. A medial arthrotomy was performed, patella was everted and knee was flexed. There was advanced osteoarthritis noted. I introduced my distal intramedullary femoral drill. I then introduced the distal femoral cutting jig. Reinaldo DAVENPORT secured the cutting jig with 2 pins. I held retractors in position while Reinaldo DAVENPORT performed the distal femoral resection through the guide area we now removed her distal femoral cutting guide. We now placed our 4-in-1 femoral cutting block and positioned and it was secured with 2 pins by Reinaldo DAVENPORT while I held the block in position. The distal femoral finishing was now completed. A proximal tibial cutting guide was positioned. I held the guide in the appropriate position with both hands well Reinaldo DAVENPORT inserted stabilizing pins into the guide. Proxi mal tibial cut was made. We now placed a trial femoral component into position, along with an appropriate size tibial tray and insert. We now took the knee through range of motion and had full extension good flexion and good overall soft tissue balance noted. The patella was everted and stabilized with 2 towel clips held by Reinaldo DAVENPORT while I performed a flush with patellar quad tendon utilizing a fresh sawblade. We templated the patella, appropriate drill holes were made. An appropriate trial patella was positioned, knee was taken through full range of motion with the patella tracking very nicely. The trial patella was removed. Drill holes were made through the femoral component. All trial components were removed after marking off the appropriate rotation of the tibia. Retractors were now positioned along the proximal tibia. An appropriate keel punch was made with the appropriate size tibial guide by myself on Reinaldo DAVENPORT assisted by holding retractors. At this point appropriate size implants were chosen and opened. The joint was irrigated copiously with pulse lavage mechanical irrigation. The posterior capsule was infiltrated with local analgesic. The wound was irrigated with pulse lavage mechanical irrigation. We mixed antibiotic methylmethacrylate. We placed the knee into flexion. We placed multiple retractors assisted by Reinaldo DAVENPORT to expose the proximal tibia. Once the methyl methacrylate was ready, the tibial component was cemented into place removing any excess methylmethacrylate form by both myself and Reinaldo DAVENPORT. The femoral component was cemented into place removing the removing any excess methylmethacrylate performed by both myself and Reinaldo DAVENPORT. We then inserted the appropriate size polyethylene tibial insert. We made sure that it was locked into position. We took the knee into full extension, and then back in a flexion making sure we had removed any excess methylmethacrylate. The patellar component was then cemented down and secured with clamp. Excess methylmethacrylate removed. We kept the knee in full extension, patellar clamp in position until methylmethacrylate had hardened. Once it had hardened the patellar clamp was removed. The knee was taken through full range of motion. The patella tracked nicely. There was good soft tissue balancing. The tourniquet was now released. Additional hemostasis was achieved via electrocautery. A second gram of TXA was given. The wound again was irrigated with pulse lavage mechanical irrigation. The superficial soft tissues were infiltrated local analgesic. The extensor mechanism was repaired with Vicryl. We checked the repair with range of motion and it was stable. The subcutaneous soft tissues were repaired with Vicryl in layers. The skin was approximated with pernio/Dermabond. Sterile dressings were applied followed by loose web roll and Errol bandage. The patient was transferred to a bed, and taken to recovery in stable and satisfactory condition. Reinaldo DAVENPORT assisted with this complex procedure.
--- NOTE | 2019-03-08 13:01 | XR ---
EXAMINATION TYPE: XR knee limited RT DATE OF EXAM: 03/08/2019 CLINICAL HISTORY: Right knee pain and arthritis status post total knee replacement. TECHNIQUE: Portable AP and crosstable lateral views of the right knee are obtained immediately posto peratively. COMPARISON: None FINDINGS: Metallic hardware from total right knee arthroplasty is seen and appears satisfactory in a lignment and position. There is evidence of recent surgery with diffuse subcutaneous gas and soft ti ssue swelling noted. IMPRESSION: METALLIC HARDWARE FROM TOTAL RIGHT KNEE ARTHROPLASTY IS SATISFACTORY IN ALIGNMENT.
[2019-03-08] MEDS: traMADol 50 MG TAB PO SCH ×3 (16:19→21:17)
[2019-03-08] MEDS: LACTATED RINGERS 1,000 ML IV SCH ×2 (16:20→23:59)
[2019-03-08] MEDS ORDERED: ZOLPIDEM 10 MG TAB PO PRN (17:51)
[2019-03-08] MEDS ORDERED: SENNOSIDES-DOCUSATE SODIUM 1 EACH TAB PO SCH (21:00)
[2019-03-08] MEDS: ENOXAPARIN 30 MG/0.3 ML SYRINGE SQ SCH (21:18)
[2019-03-08] MEDS: SYMBICORT 160-4.5 MCG INHALER INHALATION SCH (21:43)
[2019-03-08] MEDS: HYDROcodone/APAP 7.5-325MG 1 EACH TAB PO PRN (23:26)
--- NOTE | 2019-03-09 05:51 | P.PN ---
Progress Note - Text Progress Note Date: 03/09/19 68-year-old female status post right total knee arthroplasty with adductor canal catheter postop day #1. Overall patient doing well VAS ranges from 3-5 out of 10 in severity. Ambulating minimally, denies any motor sensory deficits. Catheter site looks clean dry and intact.
[2019-03-09] MEDS: ENOXAPARIN 30 MG/0.3 ML SYRINGE SQ SCH (07:15)
[2019-03-09] MEDS: HYDROcodone/APAP 7.5-325MG 1 EACH TAB PO PRN ×2 (07:15→13:36)
[2019-03-09] MEDS: LACTATED RINGERS 1,000 ML IV SCH (07:16)
[2019-03-09 07:46] VITALS: BP 153/83; PULSE 63; RESP 18; TEMP 97.6
[2019-03-09 07:48] LABS: Basophils % (A) 0 %; Eosinophils # (A) 0.1 k/uL (0-0.7); Eosinophils % (A) 0 %; HCT 38.2 % (34.0-46.0); HGB 12.3 gm/dL (11.4-16.0); Lymphocytes # (A) 2.7 k/uL (1.0-4.8); Lymphocytes % (A) 13 %; MCH 31.1 pg (25.0-35.0); MCHC 32.1 g/dL (31.0-37.0); MCV 96.8 fL (80.0-100.0); Mean Platelet Volume 7.3; Monocytes # (A) 0.7 k/uL (0-1.0); Monocytes % (A) 3 %; Neutrophils # (A) 16.9 k/uL (1.3-7.7); Neutrophils % (A) 82 %; Platelet Count 267 k/uL (150-450); RBC 3.95 m/uL (3.80-5.40); RDW 12.4 % (11.5-15.5); WBC 20.5 k/uL (3.8-10.6)
[2019-03-09] MEDS: SYMBICORT 160-4.5 MCG INHALER INHALATION SCH (07:53)
[2019-03-09] MEDS: traMADol 50 MG TAB PO SCH ×2 (08:37→13:37)
[2019-03-09] MEDS ORDERED: MELOXICAM 7.5 MG TAB PO SCH (09:00)
--- NOTE | 2019-03-09 12:54 | P.PN ---
Progress Note - Text Progress Note Date: 03/09/19 Patient seen sitting up in chair eating lunch. She did ambulate with physical therapy. Her pain seems be under control. Incision stable. Distal neurovascular exam intact. Impression: Status post right total knee arthroplasty Plan: We will discharge to home today with appropriate discharge instructions
--- NOTE | 2019-03-09 13:02 | P.DS ---
Providers Date of admission: 03/08/19 Expected date of discharge: 03/09/19 Attending physician: Nba Moody Consults: 03/08/19 12:18 Consult Physician Routine Consulting Provider: Reece Pierce Reason/Comments: Medical management Do you want consulting provider notified?: Yes Primary care physician: Reece Pierce Hospital Course: Date of admission: 03/08/19 Date of discharge: 03/09/19 Admission diagnosis: Knee osteoarthritis Discharge diagnosis: Status post right total knee arthroplasty Attending physician: Nba Moody DO Surgical procedure: Right total knee arthroplasty Brief history: Patient is a 68-year-old with a history of symptomatic right knee osteoarthritis. At this point patient has failed outpatient conservative treatment measures and has opted to proceed with an elective right total knee arthroplasty. Hospital course: Details the patient surgery can be found in the operative report. Patient tolerated the procedure well and was subsequently transported to orthopedic floor. Patient orthopedic and medical care was provided daily. Patient had daily laboratory tests performed for evaluation of overall blood counts. Patient had daily physical therapy to include strengthening, range of motion as well as education with walker ambulation. Patient had daily CPM usage and participated in physical therapy. Patient was treated with Lovenox for the postoperative DVT prophylaxis during there inpatient stay. Patient noted to have a relatively uneventful postoperative course. Patient reported satisfactory pain control with oral pain medication by postoperative day 1. Patient showed satisfactory progress with physical therapy. Patient removed steadily through the program and had no difficulty meeting goals by postop day 1. Given patient's otherwise satisfactory course and having met physical therapy goals, plan is to discharge patient to all on postoperative day 1. Discharge condition/disposition: Patient discharged to home in stable and satisfactory condition. Discharge medications: Patient is prescribed home medications per medicine as well as appropriate oral analgesics and anticoagulants. Discharge instructions: 1. Wound care and infectious precautions, keep incision dry and covered while showering, no lotions, creams, moisturized. No soaking, tubs, pools, hot tubs. Do not scrub over the incision 2. Weight-bear [as tolerated] with walker/cane until follow-up 3. Ice and elevate when necessary. Do not exceed 20 minutes per hour with ice pack. 4. Utilize compression sleeve until seen first postoperative appointment. 5. Visiting nursing care 6. Home physical therapy [including home CPM]. 7. Pain meds and anticoagulations per prescription 8. Pain medication has potential to cause constipation. Increase oral fluid and fiber intake. Contact primary care provider if you have not had a bowel movement within 48 hours after discharge. 9. No anti-inflammatory medication until discussed the first postoperative visit, this includes Motrin, Aleve, Mobic, diclofenac, [aspirin]. 10. Follow-up in [facility] in 2 weeks with Reinaldo Levine PA-C 11. Follow up with your primary care doctor 7-10 days after discharge. 12. Contact [facility] with any questions, Procedures: Right total knee arthroplasty Patient Condition at Discharge: Stable Plan - Discharge Summary Discharge Rx Participant: Yes New Discharge Prescriptions: New Aspirin [Adult Low Dose Aspirin EC] 81 mg PO BID #60 tablet. Docusate [Colace] 100 mg PO DAILY #30 capsule HYDROcodone/APAP 7.5-325MG [Logan 7.5-325] 1 - 2 each PO Q6HR PRN #56 tab PRN Reason: Pain No Action Zolpidem [Ambien] 10 mg PO HS PRN PRN Reason: sleeplessness Indapamide [Lozol] 2.5 mg PO DAILY Aspirin [Adult Low Dose Aspirin EC] 81 mg PO DAILY Budesonide-Formot 160-4.5 Mcg [Symbicort 160-4.5 Mcg Inhaler] 2 puff INHALATION BID 30 Days #1 inhaler Amoxicillin/Potassium Clav [Augmentin 875-125 Tablet] 1 tab PO Q12HR Discharge Medication List Aspirin [Adult Low Dose Aspirin EC] 81 mg PO DAILY 06/05/16 [History] Indapamide [Lozol] 2.5 mg PO DAILY 06/05/16 [History] Zolpidem [Ambien] 10 mg PO HS PRN 06/05/16 [History] Budesonide-Formot 160-4.5 Mcg [Symbicort 160-4.5 Mcg Inhaler] 2 puff INHALATION BID 30 Days #1 inhaler 06/20/17 [Rx] Amoxicillin/Potassium Clav [Augmentin 875-125 Tablet] 1 tab PO Q12HR 03/05/19 [History] Aspirin [Adult Low Dose Aspirin EC] 81 mg PO BID #60 tablet. 03/09/19 [Rx] Docusate [Colace] 100 mg PO DAILY #30 capsule 03/09/19 [Rx] HYDROcodone/APAP 7.5-325MG [Logan 7.5-325] 1 - 2 each PO Q6HR PRN #56 tab 03/09/19 [Rx] Follow up Appointment(s)/Referral(s): [facility], [NON-STAFF] - As Needed Activity/Diet/Wound Care/Special Instructions: Orthopedic discharge instructions: 1. Wound care infection precautions , no lotions, creams, moisturizers. No soaking, pools, hot tubs. Do not scrub over incision. 2. Weight-bear [as tolerated] with walker/cane until follow-up 3. Ice and elevate when necessary. Do not exceed 20 minutes per hour with ice pack. 4. Utilize compression sleeve until seen at first follow-up appointment. 5. Pain meds and anticoagulation per prescription. 6. Pain medication is potential to cause constipation. Increase oral fluids and fiber. Contact primary care provider. Has not had a bowel movement within 48 hours of discharge. 7. No anti-inflammatory medication and discussed at first postop visit, this includes Motrin, Aleve, Mobic, diclofenac, . 8. Follow up in office at 2 weeks postoperatively with Reinaldo Levine PA-C 9. Follow-up with primary care doctor within 7-10 days after discharge. 10. Contact [facility] with any questions, Discharge Disposition: HOME WITH HOME HEALTH SERVICES
== END 2019-03-09 14:18 | disposition home health service (06) ==
LOC: OR 08:15 → 4SSUR 15:16 → OR 03-09 14:18
PROVIDERS: ATTEND Orthopaedic Surgery
DX: M17.11 Unilateral primary osteoarthritis, right knee (principal); I10 Essential (primary) hypertension; K52.9 Noninfective gastroenteritis and colitis, unspecified; Z88.2 Allergy status to sulfonamides; Z79.82 Long term (current) use of aspirin; Z79.51 Long term (current) use of inhaled steroids; Z79.899 Other long term (current) drug therapy; Z85.6 Personal history of leukemia; Z87.19 Personal history of other diseases of the digestive system; Z90.49 Acquired absence of other specified parts of digestive tract; Z90.710 Acquired absence of both cervix and uterus; Z98.51 Tubal ligation status; Z88.1 Allergy status to other antibiotic agents; Z87.891 Personal history of nicotine dependence; Z80.3 Family history of malignant neoplasm of breast; Z80.8 Family history of malignant neoplasm of other organs or systems; Z83.6 Family history of other diseases of the respiratory system
CPT/HCPCS: 94640 ×2; 97116; 97161; 64448; 76942; 85025; 73560; 27447; C1776; C1713; J2250; J0171; J1100; J0690 ×3; J2405; J1885; J1650; J2795 ×2; J0735; J1170

== ENCOUNTER → 2019-03-19 | Outpatient (CLI) | payer MEDICARE, BC ==
--- NOTE | 2019-03-19 11:05 | XR ---
EXAMINATION TYPE: XR chest 2V DATE OF EXAM: 03/19/2019 COMPARISON: 06/17/2017 INDICATION: Cough x1 week TECHNIQUE: Frontal and lateral views of the chest are obtained. FINDINGS: The heart size is normal. The pulmonary vasculature is normal. The lungs are clear. IMPRESSION: 1. No acute pulmonary process.
== END | disposition home or self-care (01) ==
LOC: RADXRMAIN 10:04
PROVIDERS: ATTEND Family Medicine
DX: R05 Cough (principal)
CPT/HCPCS: 71046

== ENCOUNTER → 2019-09-09 | Outpatient (CLI) | payer MEDICARE, BC ==
--- NOTE | 2019-09-10 11:02 | MM ---
Reason for exam: screening (asymptomatic). Last mammogram was performed 1 year and 6 months ago. History: Patient has history of other cancer at age 66. Benign stereotactic core biopsy of the left breast, 2009. Physical Findings: A clinical breast exam by your physician is recommended on an annual basis and results should be correlated with mammographic findings. MG 3D Screening Mammo W/Cad Bilateral CC and MLO view(s) were taken. Prior study comparison: February 25, 2018, bilateral MG 3d screening mammo w/cad. February 24, 2017, mammogram. August 04, 2015, mammogram. September 13, 2013, mammogram. The breast tissue is heterogeneously dense. This may lower the sensitivity of mammography. No significant changes when compared with prior studies. ASSESSMENT: Benign, BI-RAD 2 RECOMMENDATION: Routine screening mammogram of both breasts in 1 year.
== END | disposition home or self-care (01) ==
LOC: RADMAMWWP 08:15
PROVIDERS: ATTEND Family Medicine
DX: Z12.31 Encounter for screening mammogram for malignant neoplasm of breast (principal)
CPT/HCPCS: 77063; 77067

== ENCOUNTER → 2020-01-18 | Outpatient (CLI) | payer MEDICARE, BC | END | disposition home or self-care (01) | LOC: LABWHC1 13:14 | PROVIDERS: ATTEND Family Medicine | DX: Z03.818 Encounter for observation for suspected exposure to other biological agents ruled out (principal) | CPT/HCPCS: U0003; C9803 ==

== ENCOUNTER → 2020-03-01 | Outpatient (CLI) | payer MEDICARE, BC ==
--- NOTE | 2020-03-01 09:50 | MM ---
Reason for exam: clinical finding. Last mammogram was performed 6 months ago. History: Patient has history of other cancer at age 66. Benign stereotactic core biopsy of the left breast, 2009. Physical Findings: Nurse Summary: 2.5cm nodule in the left breast at 5 o'clock (nurse dw). MG 3D Diag Mammo W/Cad LT CC and MLO view(s) were taken of the left breast. Prior study comparison: September 09, 2019, bilateral MG 3d screening mammo w/cad. February 25, 2018, bilateral MG 3d screening mammo w/cad. The breast tissue is heterogeneously dense. This may lower the sensitivity of mammography. Stable benign calcifications. There is chronic nodularity in the left breast appears to have been sampled previously. These results were verbally communicated with the patient and result sheet given to the patient on 03/01/20. ASSESSMENT: Incomplete: need additional imaging evaluation, BI-RAD 0 RECOMMENDATION: Ultrasound of the left breast.
--- NOTE | 2020-03-01 09:57 | USB ---
Reason for exam: additional evaluation requested from abnormal screening. History: Patient has history of other cancer at age 66. Benign stereotactic core biopsy of the left breast, 2010. US Breast Limited LT Left limited breast ultrasound including focal area of concern, retroareolar and axilla demonstrates a 24 x 1.5 x 3.2cm irregular, spiculated, solid, hypoechoic, vascular lesion at 5 o'clock. These results were verbally communicated with the patient and result sheet given to the patient on 03/01/20. ASSESSMENT: Suspicious, BI-RAD 4 RECOMMENDATION: Ultrasound core biopsy of the left breast. Called Dr. Moura's office with mammographic findings and has scheduled an appointment for the patient with Dr. Shirley. Biopsy scheduled for 03/07/20 at 12:00. PRELIMINARY REPORT CALLED AND FAXED TO DR. SHIRLEY ON 03/01/20.
== END | disposition home or self-care (01) ==
LOC: RADMAMWWP 06:58
PROVIDERS: ATTEND Family Medicine
DX: N63.20 Unspecified lump in the left breast, unspecified quadrant (principal); R92.8 Other abnormal and inconclusive findings on diagnostic imaging of breast
CPT/HCPCS: 77065; 76642; G0279; 77061

== ENCOUNTER → 2020-03-07 | Day surgery (SDC) | payer MEDICARE, BC ==
[2020-03-07 12:13] VITALS: RESP 18
--- NOTE | 2020-03-07 13:35 | USB ---
EXAMINATION TYPE: US biopsy breast VAD LT DATE OF EXAM: 03/07/2020 CLINICAL HISTORY: R92.8 ABN MAMMO. TECHNIQUE: Ultrasound guided vaccuum assisted core biopsy of left breast. COMPARISON: NONE FINDINGS: The ultrasound guided core biopsy procedure was explained to the patient. The risks, benefits, alternatives were discussed. An informed consent was then obtained. Timeout was performed. The patient was placed in supine positioning for imaging and for the procedure. The overlying skin was prepped with betadine and sterilely draped in usual sterile fashion. Lidocaine 1% was used as anesthetic into the skin and deeper breast tissue up to area of concern in the breast was anesthetized with 1% lidocaine with epinephrine. A small skin mark was made with surgical scalpel. Under ultrasound guidance, a 12-gauge vacuum assisted biopsy device was used to obtain 5 core samples. Samples are within the container. A biopsy clip was left in lesion. Ribbon clip was placed. Good hemostasis was obtained with direct pressure. Discharge instructions were discussed with the patient. The patient will follow up with the referring physician for results. Patient was transferred to mammography for postprocedure mammogram. The patient tolerated the procedure well without any immediate complication. The patient was discharged to home in stable condition. IMPRESSION: 1. Successful ultrasound guided biopsy left breast. Pathology Results: Malignant LEFT BREAST, 5:00, ULTRASOUND GUIDED CORE BIOPSY: Invasive moderately differentiated ductal carcinoma (Grade 2). See Surgical Pathology Cancer Case Summary and Comment. Recommendation Surgical consult of the left breast. TI
[2020-03-07 13:58] VITALS: BP 178/81; PULSE 65; TEMP 97.8
--- NOTE | 2020-03-07 14:01 | MM ---
Reason for exam: additional evaluation requested from abnormal screening. Last mammogram was performed less than 1 month ago. History: Patient has history of other cancer at age 66. Benign stereotactic core biopsy of the left breast, 2009. MG Diagnostic Mammo LT Wo CAD CC and ML view(s) were taken of the left breast. Prior study comparison: March 01, 2020, left breast MG 3d diag mammo w/cad LT. September 09, 2019, bilateral MG 3d screening mammo w/cad. ASSESSMENT: Post procedure mammogram for marker placement RECOMMENDATION: Surgical consultation of the left breast.
== END ==
LOC: RADUSWWP 11:50
PROVIDERS: ATTEND Surgery
DX: C50.512 Malignant neoplasm of lower-outer quadrant of left female breast (principal); Z17.0 Estrogen receptor positive status [ER+]; Z85.9 Personal history of malignant neoplasm, unspecified
CPT/HCPCS: 88305; 88342; 77065; 19083; A4648

== ENCOUNTER → 2020-03-16 | Outpatient (CLI) | payer MEDICARE, BC ==
[2020-03-16 12:05] VITALS: BP 133/78; RESP 18; TEMP 97.5
--- NOTE | 2020-03-16 13:06 | P.GSHP ---
History of Present Illness H&P Date: 03/16/20 Chief Complaint: [id number]- left breast cancer Ashley is a 69 year old white female seen in consultation for Dr. Adrian Greene with a lump in her left breast approximately 3 months ago. She had a bilateral mammogram in September 2019 which was benign BIRADS 2. She subsequently secondary to feeling a lump in her breast underwent an ultrasound of the left breast and [id number]. This revealed a 3.2 x 2.4 cm irregular lesion in the 5 o'clock position. An ultrasound core biopsy was performed which was positive for an invasive moderately differentiated ductal carcinoma. This is ER positive CO negative HER-2 negative grade 2. She does not feel any lumps masses or nodules anyplace else in her breast. She is not complaining of any pain in her breast. 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 Caffeine: One cup per day Nicotine: Stopped 40 years ago Chocolate: occasional Family history: mother: lymphoma Hormonal History: menarche: 11 , breast fed: no, age at first : 20 menopause: 42 BCP: < 1 year hormones; none Surgical history: 1. Cervical spine surgery 2. bi-Lateral knee Replacement 3. bilateral cataract 4. tubaligation/ovarian cyst 5. Umbilical hernia repair 6. 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 Social History: smoke: none, stopped 4 years ago did smoke 1 1/2 PPD for 25 years alcohol: occasional drugs: none - Constitutional Constitutional: Denies chills, Denies fever - EENT Comment: bilateral cataract Ears: bilateral: decreased hearing Ears, nose, mouth and throat: Denies headache, Denies sore throat - Breasts Breasts: bilateral: as per HPI - Cardiovascular Cardiovascular: Reports high blood pressure - Respiratory Comment: COPD - Gastrointestinal Comment: IBS Gastrointestinal: Reports diarrhea, Denies abdominal pain, Denies nausea, Denies vomiting - Genitourinary (Female) Comment: UTI last year - Menstruation Menstruation: Reports postmenopausal - Musculoskeletal Comment: arthritis, cervical spine surgery - Integumentary Integumentary: Denies pruritus, Denies rash - Neurological Neurological: Reports weakness, Denies numbness - Psychiatric Psychiatric: Reports anxiety - Endocrine Endocrine: Denies fatigue, Denies weight change - Hematologic/Lymphatic Comment: takes baby aspirin - Allergic/Immunologic Allergic/Immunologic: Reports as per HPI Past Medical History Past Medical History: Cancer, COPD, Hypertension, Osteoarthritis (OA) Additional Past Medical History / Comment(s): HX DIVERTICULOSIS AND COLITIS,, HX colon POLYP, . STATES TOLD SHE HAS COPD. DDD, NECK PAIN, leukemia History of Any Multi-Drug Resistant Organisms: None Reported Past Surgical History: Appendectomy, Hernia Repair, Hysterectomy, Joint Replacement Additional Past Surgical History / Comment(s): UMB. HERNIA WITH MESH., LEFT TOTAL KNEE, AYAN CATARACTS, egd w/bx "neg", neck surgery Past Anesthesia/Blood Transfusion Reactions: No Reported Reaction Past Psychological History: No Psychological Hx Reported Smoking Status: Smoker, current status unknown Past Alcohol Use History: None Reported Additional Past Alcohol Use History / Comment(s): Patient is a smoker on and off since age 18 and currently smoking 8 cigarettes per day. She recently quit for 4 months. No illicit drug use. No alcohol abuse. 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 Past Drug Use History: None Reported - Past Family History Mother Family Medical History: Cancer Father Family Medical History: Myocardial Infarction ([place]) Medications and Allergies Home Medications Medication Instructions Recorded Confirmed Type Aspirin [Adult Low Dose Aspirin EC] 81 mg PO DAILY 06/05/16 03/16/20 History Indapamide [Lozol] 2.5 mg PO DAILY 06/05/16 03/16/20 History Zolpidem [Ambien] 10 mg PO HS PRN 06/05/16 03/16/20 History Budesonide-Formot 160-4.5 Mcg 2 puff INHALATION BID 30 Days #1 06/20/17 03/16/20 Rx [Symbicort 160-4.5 Mcg Inhaler] inhaler Meloxicam [Mobic] 15 mg PO DAILY 03/01/20 03/16/20 History amLODIPine [Norvasc] 10 mg PO DAILY 03/01/20 03/16/20 History Allergies Allergy/AdvReac Type Severity Reaction Status Date / Time perfume Allergy Unknown Dyspnea Verified 03/16/20 12:01 nitrofurantoin Allergy flu like Verified 03/16/20 12:01 [From Macrobid] symptoms-very sick, Surgical - Exam Vital Signs Temp Resp BP Pulse Ox 97.5 F L 18 133/78 96 03/16/20 12:02 03/16/20 12:02 03/16/20 12:02 03/16/20 12:02 BMI 33.8 - General obese - Eyes normal ocular movement - ENT no hearing loss - Neck no masses, trachea midline - Respiratory normal respiratory effort, clear to auscultation - Cardiovascular Rhythm: regular Heart Sounds: normal: S1, S2 - Abdomen Abdomen: soft, bowel sounds - Integumentary normal turgor - Neurologic no disoriented, no combative - Musculoskeletal normal gait - Psychiatric oriented to time, oriented to person, oriented to place, speech is normal, memory intact Breast exam: BRA 42B inspection: bilateral grade 3 ptosis, right breast larger than left breast palpation: right breast: Superficial exam fibrocystic changes, no dominant masses or nodules of concern Right axilla: No adenopathy of concern Left breast: Multiple positional exam approximately 3 cm lesion at 5 o'clock position not fixed to the chest wall Left axilla: No adenopathy of concern Results mammogram and ultrasound reviewed Assessment and Plan Assessment: Impression: HTN sleep medication COPD Leukemia follows with Dr. Hartmann left breast cancer Plan: 1. follow up DR. Hartmann 2. presentation at tumor board 3. needle localization partial lumpectomy, possible mastopexy, sentinel node injection, sentinel node biopsy, possible axillary node dissection Risk and benefits of the procedures have been discussed with the patient. She has been given the option of a mastectomy and would prefer a lumpectomy as possible. Additionally she understands risks which may include lymphedema, decreased sensation to the inner arm, injury to the thoracodorsal or long thoracic nerves. She wishes to proceed. CC: DR Pepe encounter 50 minutes, > 50% of time spent on planning and counselling Time with Patient: Greater than 30
== END | disposition home or self-care (01) ==
LOC: WWCWWP 11:40
PROVIDERS: ATTEND Surgery
DX: Z53.9 Procedure and treatment not carried out, unspecified reason (principal)

== ENCOUNTER 2020-03-29 08:20 | Day surgery (SDC) | payer MEDICARE, BC ==
[2020-03-24 15:13] VITALS: BMI 34.2
[~2020-03-29 08:20] MED LIST changes: -ACETAMINOPHEN TAB 500 MG TAB PO ONE; -DEXAMETHASONE SOD PHOSPHATE 10 MG/ML 1 ML VIAL IV ONE; +DEXAMETHASONE SOD PHOSPHATE 4 MG/ML 1 ML VIAL IV ONE; +HEPARIN SODIUM,PORCINE 5,000 UNIT/ML 1 ML VIAL SQ PRN; -HYDROmorphone 0.5 MG/0.5 ML SYRINGE IVP PRN; +LIDOCAINE 1% (10MG/ML) FOR IV START INTRADERMA PRN; -MELOXICAM 7.5 MG TAB PO ONE; -MIDAZOLAM 2 MG/2 ML VIAL IV PRN; +Pre Op ABX Message 1 EACH MISC MISCELLANE ONE; -ROPIVACAINE 0.2%-NS ON-Q PUMP 1,090 MG, EMPTY PAIN BALL 1 EACH MISCELLANE PRN; -ROPIVACAINE 246.25 MG, EPINEPHrine 0.5 MG, KETOROLAC 30 MG, cloNIDine HCL/PF 80 MCG, WA... MISCELLANE ONE; -TRANEXAMIC ACID 1,000 MG in SODIUM CHLORIDE 0.9% 100 ML IVPB ONE
[2020-03-29] MEDS ORDERED: LIDOCAINE 1% INJ 10MG/ML (20 ML MDV) SQ ONE (09:47)
--- NOTE | 2020-03-29 10:44 | NM ---
EXAMINATION TYPE: NM sentinel node injection DATE OF EXAM: 03/29/2020 COMPARISON: NONE INDICATION: Abnormal mammogram. Informed consent was obtained. A timeout was performed. The area around the left nipple was cleansed with alcohol. The skin was anesthetized with 1% Lidocai ne with sodium bicarbonate. In a single dose, a total of 5-4 millicuries Technetium 99m Tilmanocept was injected. The patient tolerated the procedure very well. IMPRESSIONS: 1.. Successful injection for sentinel node evaluation.
[2020-03-29] MEDS ORDERED: PROPOFOL 10 MG/ML 20 ML VIAL IV ONE (12:38)
[2020-03-29] MEDS ORDERED: fentaNYL (PF) 50 MCG/ML 2 ML AMP ONE (12:38)
[2020-03-29] MEDS ORDERED: ceFAZolin 1,000 MG VIAL ONE (12:38)
[2020-03-29] MEDS ORDERED: SUCCINYLCHOLINE CHLORIDE 100 MG/5 ML SYR IV ONE (12:38)
[2020-03-29] MEDS ORDERED: MIDAZOLAM 2 MG/2 ML VIAL ONE (12:38)
[2020-03-29] MEDS ORDERED: LIDOCAINE 1% INJ 10MG/ML (20 ML MDV) ONE (12:38)
[2020-03-29] MEDS ORDERED: METHYLENE BLUE 50 MG/10 ML AMPUL INJ ONE (13:17)
[2020-03-29] MEDS ORDERED: LACTATED RINGERS 1,000 ML IV ONE (15:10)
--- NOTE | 2020-03-29 15:30 | P.OP ---
Date of Procedure: 03/29/20 Preoperative Diagnosis: Left breast invasive ductal carcinoma Postoperative Diagnosis: Same Procedure(s) Performed: 1. Lymphatic mapping with methylene blue 2. [place] node biopsy deep 3. Needle localization partial lumpectomy via a lollipop mastopexy incision 4. onco-plastic tissue transfer 192 cm Anesthesia: REID Surgeon: Tiffany Shirley Estimated Blood Loss (ml): 20 IV fluids (ml): 650 Pathology: other (Axillary lymph node, breast tissue, de-epithelialized skin) Condition: stable Disposition: same day Indications for Procedure: Left breast invasive ductal carcinoma Operative Findings: Palpable breast mass left breast Description of Procedure: The patient is a 69-year-old white female who had a core biopsy of a positive left breast invasive ductal carcinoma. She presents for sentinel node biopsy, and lumpectomy. We have discussed the surgical options and she would like this to be done via mastopexy incision if possible. The patient went first to the radiology department for needle localization of the area of concern in the left breast as well as injection for sentinel node evaluation. She then was seen in the preoperative department where markings were placed for a mastopexy incision. She was then brought to the operating room and following induction of anesthesia the neoprobe was used to evaluate the axilla and there was noted to be radioactivity in the axilla. The left breast and axilla were prepped and draped in a sterile fashion. The axilla was approached initially. Upon evaluation of the axilla with the neoprobe the neoprobe was found to be nonfunctional. The batteries were changed however the neoprobe did not work. Therefore 10 mL of methylene blue 1/4 strength was injected into the periareolar area. The breast was massaged for 3 minutes. The area of the greatest radioactivity which had been noted preprocedure was identified and an incision was made in the axilla. The dissection was carried down through the skin and subcutaneous tissue to the axillary tissue. In the prior area of greatest radioactivity we noted a lymph node. No blue lymph node was identified. The node we palpated was removed. No other suspicious nodes were palpable. Therefore there it was felt that this was a patient services representative sentinel lymph node. A completion dissection was not done and we opted to wait for permanent section evaluation of the lymph node. The c oncerns for doing a full axillary dissection at this time were secondary to the fact that the patient would have increased risk of lymphedema. Following this the axillary wound was irrigated. The deep tissues were closed using 3-0 Vicryl suture. The skin was closed using 4-0 Monocryl. The area of the breast was approached. A circumareolar mastopexy approach was utilized. The skin was de-epithelialized. Inferiorly the lesion was noted to be close to the 5 o'clock position and an inferior limb of the incision was formed with actual removal of the skin secondary to the proximity of the tumor to the anterior skin. Wide excision around the needle and the area of the palpable mass was performed. Radiograph revealed that we had the correct tissue excised. We carefully evaluated the area to ensure hemostasis. The area of resection was 8 centimeters by 6 cm for 64 cm. Lateral tissue was mobilized 8 x 6 cm for 64 cm, 8 x 6 cm of tissue was mobilized for 64 cm. A total of 192 cm of tissue was mobilized. Titanium clips were placed in the tumor bed. The medial and lateral pillars of tissue were brought together and secured using 3-0 Vicryl suture. The posterior resection was onto the pectoralis muscle. The anterior resection included the skin. The skin was then closed for the [place] portion of the incision using a 3-0 Vicryl suture. This was followed by 4-0 Monocryl and a nylon skin suture. A circumareolar mastopexy incision was closed using a wagon wheel approach with 4-0 [place]. This was followed by a 4 Monocryl and a nylon skin suture. The patient tolerated procedure in stable condition. All instrument and sponge counts were correct at the end of the case.
[2020-03-29 15:32] VITALS: TEMP 97.4
--- NOTE | 2020-03-29 15:32 | P.DS ---
Providers Attending physician: Tiffany Shirley Primary care physician: Megan Pepe Plan - Discharge Summary Discharge Rx Participant: Yes New Discharge Prescriptions: No Action Zolpidem [Ambien] 10 mg PO HS PRN PRN Reason: sleeplessness Indapamide [Lozol] 2.5 mg PO DAILY Aspirin [Adult Low Dose Aspirin EC] 81 mg PO DAILY Budesonide-Formot 160-4.5 Mcg [Symbicort 160-4.5 Mcg Inhaler] 2 puff INHALATION BID 30 Days #1 inhaler amLODIPine [Norvasc] 10 mg PO DAILY Meloxicam [Mobic] 15 mg PO DAILY Discharge Medication List Aspirin [Adult Low Dose Aspirin EC] 81 mg PO DAILY 06/05/16 [History] Indapamide [Lozol] 2.5 mg PO DAILY 06/05/16 [History] Zolpidem [Ambien] 10 mg PO HS PRN 06/05/16 [History] Budesonide-Formot 160-4.5 Mcg [Symbicort 160-4.5 Mcg Inhaler] 2 puff INHALATION BID 30 Days #1 inhaler 06/20/17 [Rx] Meloxicam [Mobic] 15 mg PO DAILY 03/01/20 [History] amLODIPine [Norvasc] 10 mg PO DAILY 03/01/20 [History] Follow up Appointment(s)/Referral(s): Tiffany Shirley MD [STAFF PHYSICIAN] - 04/07/20 4:20 pm Activity/Diet/Wound Care/Special Instructions: do not drive today may shower after 48 hours wear bra at all times Discharge Disposition: HOME SELF-CARE
[2020-03-29] MEDS: HYDROmorphone 0.5 MG/0.5 ML SYRINGE IVP ONE ×4 (15:33→15:50)
[2020-03-29 15:43] VITALS: RESP 16
[2020-03-29] MEDS ORDERED: HYDROcodone/APAP 5-325MG 1 EACH TAB ONE (16:24)
[2020-03-29] MEDS ORDERED: HYDROcodone/APAP 5-325MG 1 EACH TAB PO ONE (16:26)
[2020-03-29 16:55] VITALS: BP 135/81; PULSE 68
--- NOTE | 2020-03-29 17:28 | MM ---
EXAMINATION TYPE: US breast localization LT DATE OF EXAM: 03/29/2020 CLINICAL HISTORY: R92.8 abn [place]. Abnormal ultrasound, biopsy proven cancer TECHNIQUE: Ultrasound guided vaccuum assisted core biopsy of left breast. COMPARISON: NONE FINDINGS: The ultrasound guided wire localization procedure was explained to the patient. The risks, benefits, alternatives were discussed. An informed consent was then obtained. Timeout was performed. The patient was placed in supine positioning for imaging and for the procedure. The overlying skin w as prepped with betadine and sterilely draped in usual sterile fashion. Lidocaine 1% was used as ane sthetic into the skin and deeper breast tissue up to area of concern in the breast. Under ultrasound guidance, a 7 cm needle was utilized to place a wire through the long axis of the le himanshu. [place] tip of the wire is seen deployed distal to the lesion. A post procedure mammogram demonstrates the wire within the mammographic abnormality. Mammographic im ages are labeled and transferred the patient to surgery. Specimen: Mammographic and ultrasound specimens were obtained. The wire is within the specimen. Clip is within the specimen. IMPRESSION: 1. Successful ultrasound-guided wire localization left breast. Recommendations: 1. Recommendations are pending pathology results.
== END 2020-03-29 17:05 | disposition home or self-care (01) ==
LOC: OR 08:20
PROVIDERS: ATTEND Surgery
DX: C50.912 Malignant neoplasm of unspecified site of left female breast (principal); C96.9 Malignant neoplasm of lymphoid, hematopoietic and related tissue, unspecified; N60.12 Diffuse cystic mastopathy of left breast; N60.82 Other benign mammary dysplasias of left breast; N60.22 Fibroadenosis of left breast; N62 Hypertrophy of breast; D24.2 Benign neoplasm of left breast; I10 Essential (primary) hypertension; J44.9 Chronic obstructive pulmonary disease, unspecified; C95.90 Leukemia, unspecified not having achieved remission; M19.90 Unspecified osteoarthritis, unspecified site; K57.90 Diverticulosis of intestine, part unspecified, without perforation or abscess without bleeding; M51.9 Unspecified thoracic, thoracolumbar and lumbosacral intervertebral disc disorder; F17.210 Nicotine dependence, cigarettes, uncomplicated; N64.81 Ptosis of breast; N60.11 Diffuse cystic mastopathy of right breast; Z17.0 Estrogen receptor positive status [ER+]; Z78.0 Asymptomatic menopausal state; Z98.890 Other specified postprocedural states; Z96.653 Presence of artificial knee joint, bilateral; Z98.41 Cataract extraction status, right eye; Z98.42 Cataract extraction status, left eye; Z98.51 Tubal ligation status; Z90.49 Acquired absence of other specified parts of digestive tract; Z87.19 Personal history of other diseases of the digestive system; Z86.010 Personal history of colon polyps; Z90.710 Acquired absence of both cervix and uterus; Z79.82 Long term (current) use of aspirin; Z79.899 Other long term (current) drug therapy; Z79.51 Long term (current) use of inhaled steroids; Z79.1 Long term (current) use of non-steroidal anti-inflammatories (NSAID); Z91.048 Other nonmedicinal substance allergy status; Z88.1 Allergy status to other antibiotic agents; Z80.7 Family history of other malignant neoplasms of lymphoid, hematopoietic and related tissues; Z82.49 Family history of ischemic heart disease and other diseases of the circulatory system
CPT/HCPCS: 19301; 38525; 14301; 14302 ×5; 19316; 88305; 88342; 88307; 88341; 77065; 76098; 76999; 19285; 38792; A9520; J2250; J1644; J1100; J2405; J0690; J2001; J3010; J0330; J2704; Q9968; J1170

== ENCOUNTER → 2020-04-07 | Outpatient (CLI) | payer MEDICARE, BC ==
[2020-04-07 16:48] VITALS: BP 150/68; PULSE 82; RESP 20; TEMP 98.1
--- NOTE | 2020-04-07 17:02 | P.PN ---
Progress Note - Text Progress Note Date: 04/07/20 Ashley is a 69-year-old white female status post left breast lumpectomy and sentinel node biopsy on . The lumpectomy specimen revealed all margins negative for in situ or invasive cancer. Margin closest to invasive was the anterior margin was less than 1 mm margin, and closest DCIS margin 1.5 mm from inferior margin. The size of the tumor was 2.5 cm. The patient intraoperative had methylene blue injection to facilitate identification of the sentinel node. The neoprobe was not functional at the time of surgery. One sentinel lymph node was removed which was positive for isolated tumor cells. The patient has not had any fever or chills. Postoperatively the patient is doing well without complaints. Lungs: clear heart: RRR incision: Mild erythema at the inferior portion of the incision Impression: 1. Patient doing well postoperatively 2. Patient to follow with medical and radiation oncology 3. Sutures removed from the kameron-areolar region 4. Patient to be started on Keflex 5. Wishes to follow-up next week CC: Dr. Pepe
== END | disposition home or self-care (01) ==
LOC: WWCWWP 16:10
PROVIDERS: ATTEND Surgery
DX: Z53.9 Procedure and treatment not carried out, unspecified reason (principal)

== ENCOUNTER → 2020-04-14 | Outpatient (CLI) | payer MEDICARE, BC ==
[2020-04-14 15:40] VITALS: BP 155/70; PULSE 87; RESP 20; TEMP 97.9
--- NOTE | 2020-04-14 16:05 | P.PN ---
Progress Note - Text Progress Note Date: 04/14/20 Ashley is a 69-year-old white female status post left breast lumpectomy and sentinel node biopsy on . The lumpectomy specimen revealed all margins negative for in situ or invasive cancer. Margin closest to invasive was the anterior margin was less than 1 mm margin, and closest DCIS margin 1.5 mm from inferior margin. The size of the tumor was 2.5 cm. The patient intraoperative had methylene blue injection to facilitate identification of the sentinel node. The neoprobe was not functional at the time of surgery. One sentinel lymph node was removed which was positive for isolated tumor cells. The patient has not had any fever or chills. All margins are negative anterior margin is margin which was skin. Postoperatively the patient is doing well without complaints. A portion of the sutures were removed on her last visit. Lungs: clear heart: RRR incision: Clean and dry, eschar at the trifurcation of the areolar and inferior incision, all sutures removed, no evidence of any infection Impression: 1. Patient doing well postoperatively 2. Patient to follow with medical and radiation oncology 3. All sutures removed 4. Patient to be started on Keflex 5. Wishes to follow-up next week CC: Dr. Pepe
== END | disposition home or self-care (01) ==
LOC: WWCWWP 15:30
PROVIDERS: ATTEND Surgery
DX: Z53.9 Procedure and treatment not carried out, unspecified reason (principal)

== ENCOUNTER → 2020-04-28 | Outpatient (CLI) | payer MEDICARE, BC ==
[2020-04-28 12:25] VITALS: BP 160/80; PULSE 70; RESP 16; TEMP 98.3
--- NOTE | 2020-04-28 12:47 | P.PN ---
Progress Note - Text Progress Note Date: 04/28/20 Ashley is a 69-year-old white female status post left breast lumpectomy and sentinel node biopsy on . The lumpectomy specimen revealed all margins negative for in situ or invasive cancer. Margin closest to invasive was the anterior margin was less than 1 mm margin, and closest DCIS margin 1.5 mm from inferior margin. The size of the tumor was 2.5 cm. The patient intraoperative had methylene blue injection to facilitate identification of the sentinel node. The neoprobe was not functional at the time of surgery. One sentinel lymph node was removed which was positive for isolated tumor cells. The patient has not had any fever or chills. All margins are negative anterior margin is margin which was skin. Postoperatively the patient is doing well at the area of the trifurcation there was some eschar noted. The patient comes in today with some necrosis of the tissue at the area of the trifurcation of the incision. The necrotic tissue was debrided. And the area of the incision was reinforced with 3-0 nylon sutures. Lungs: clear heart: RRR incision: Clean and dry, some necrotic tissue at the area of the trifurcation of the incision near the areolar. This was debrided and the incision was reinforced with nylon suture. Impression: 1. Patient doing well postoperatively 2. Patient to follow with medical and radiation oncology 3. Follow-up 2 weeks for suture removal.
== END | disposition home or self-care (01) ==
LOC: WWCWWP 12:14
PROVIDERS: ATTEND Surgery
DX: Z98.890 Other specified postprocedural states (principal)

== ENCOUNTER → 2020-05-10 | Day surgery (SDC) | payer MEDICARE, BC ==
[~2020-05-10] MED LIST changes: -DEXAMETHASONE SOD PHOSPHATE 4 MG/ML 1 ML VIAL IV ONE; -HEPARIN SODIUM,PORCINE 5,000 UNIT/ML 1 ML VIAL SQ PRN; -LACTATED RINGERS 1,000 ML IV SCH; -LIDOCAINE 1% (10MG/ML) FOR IV START INTRADERMA PRN; +LIDOCAINE 1% INJ 10MG/ML (20 ML MDV) SQ ONE; -ONDANSETRON 4 MG/2 ML VIAL IVP ONE; -Pre Op ABX Message 1 EACH MISC MISCELLANE ONE
[2020-05-10 14:30] VITALS: BP 177/79; PULSE 77; RESP 16; TEMP 96.9
[2020-05-10 14:45] LABS: African American GFR (CKD) >90 (>60 ml/min/1.73 sqM); Anion Gap 8 mmol/L; Blood Urea Nitrogen 18 mg/dL (7-17); Carbon Dioxide 30 mmol/L (22-30); Chloride 102 mmol/L (98-107); Glucose 131 mg/dL (74-99); Non-African American GFR(CKD) >90 (>60 ml/min/1.73 sqM); Sodium 140 mmol/L (137-145)
[2020-05-10 15:01] LABS: Potassium 4.2 mmol/L (3.5-5.1)
--- NOTE | 2020-05-10 16:33 | IR ---
EXAMINATION TYPE: IR cvc insert >=5 years DATE OF EXAM: 05/10/2020 COMPARISON: NONE CLINICAL HISTORY: Breast cancer Needs long-term intravenous access for therapy. PROCEDURE: Hand hygiene obtained with soap and water and alcohol-based hand rub. After informed consent, the skin overlying the right basilic vein was localized with ultrasound and n oted to be compressible and patent. An ultrasound image was obtained and submitted on the patient's chart. The overlying skin was prepped and draped and Lidocaine was used for local anesthesia. A ski n mark was made with a scalpel. Access was gained to the vein under ultrasound guidance with a 21 ga uge needle and a 0.018 inch wire was advanced. Access site was dilated with Peel-Away sheath and cat heter tailored to the appropriate length and advanced such that the distal tip is at the cavoatrial j unction. Spot image was obtained verifying placement. Catheter was fixed to the skin and a sterile dressing was placed following hemostasis. Catheter was aspirated and flushed with saline. Patient w as discharged in stable condition without complication. Maximal barrier technique is utilized. Ultra sound image is documented on the chart. Ultrasound used with sterile technique. Fluoro time and fluoroscopic images submitted to document procedure: 0.5 minutes fluoroscopy time, 15 5 intraoperative images document the procedure IMPRESSION: STATUS POST ULTRASOUND AND FLUOROSCOPIC GUIDED PICC LINE PLACEMENT, READY FOR USE. THIS PROCEDURE WAS PERFORMED BY THE UNDERSIGNED.
== END ==
LOC: CATHCVL 14:08
PROVIDERS: ATTEND Radiology Diagnostic Radiology
DX: C50.519 Malignant neoplasm of lower-outer quadrant of unspecified female breast (principal); I10 Essential (primary) hypertension; J44.9 Chronic obstructive pulmonary disease, unspecified; Z87.19 Personal history of other diseases of the digestive system; Z86.19 Personal history of other infectious and parasitic diseases; Z87.891 Personal history of nicotine dependence; Z98.42 Cataract extraction status, left eye; Z98.41 Cataract extraction status, right eye; Z98.890 Other specified postprocedural states; Z90.710 Acquired absence of both cervix and uterus; Z96.652 Presence of left artificial knee joint; Z98.51 Tubal ligation status; Z80.6 Family history of leukemia; Z90.89 Acquired absence of other organs; Z80.7 Family history of other malignant neoplasms of lymphoid, hematopoietic and related tissues; Z80.3 Family history of malignant neoplasm of breast; Z79.1 Long term (current) use of non-steroidal anti-inflammatories (NSAID); Z79.82 Long term (current) use of aspirin; Z79.891 Long term (current) use of opiate analgesic; Z79.51 Long term (current) use of inhaled steroids; Z79.899 Other long term (current) drug therapy; Z88.0 Allergy status to penicillin
CPT/HCPCS: 36573; 80048; C1751; C1769; J2001

== ENCOUNTER → 2020-05-12 | Outpatient (CLI) | payer MEDICARE, BC ==
[2020-05-12 12:02] VITALS: BP 143/83; PULSE 75; RESP 20; TEMP 97.7
--- NOTE | 2020-05-12 12:33 | P.PN ---
Progress Note - Text Progress Note Date: 05/12/20 Ashley is a 69-year-old white female status post left breast lumpectomy and sentinel node biopsy on . The lumpectomy specimen revealed all margins negative for in situ or invasive cancer. Margin closest to invasive was the anterior margin was less than 1 mm margin, and closest DCIS margin 1.5 mm from inferior margin. The size of the tumor was 2.5 cm. The patient intraoperative had methylene blue injection to facilitate identification of the sentinel node. The neoprobe was not functional at the time of surgery. One sentinel lymph node was removed which was positive for isolated tumor cells. The patient has not had any fever or chills. All margins are negative anterior margin is margin which was skin. The patient had an Oncotype performed which was started and she is receiving chemotherapy which will start next week. She was receiving radiation following this. The area of the incision has some minimal drainage at the inferior limb. Postoperatively the patient is doing well at the area of the trifurcation there was some eschar noted on her last visit which has completely healed. On the inferior limb [address] these were all removed. There remained some mild separation of the incision and the area of the incision was reinforced with 3-0 nylon sutures. Lungs: clear heart: RRR incision: Clean and dry, some mild separation of the midportion of the inferior limb of the incision the sutures were removed and the incision was reinforced with nylon suture. Impression/Plan 1. Patient doing well postoperatively 2. Patient to start chemo on Friday. She had a PICC line placed 2 days ago. 3. Follow-up 2 weeks for repeat evaluation of the incision on the left breast.
== END ==
LOC: WWCWWP 11:46
PROVIDERS: ATTEND Surgery
DX: C50.912 Malignant neoplasm of unspecified site of left female breast (principal)

== ENCOUNTER → 2020-05-26 | Outpatient (CLI) | payer MEDICARE, BC ==
[2020-05-26 12:16] VITALS: BP 118/65; PULSE 92; RESP 18; TEMP 98.4
--- NOTE | 2020-05-26 12:37 | P.PN ---
Progress Note - Text Progress Note Date: 05/26/20 Ashley is a 69-year-old white female status post left breast lumpectomy and sentinel node biopsy on . The lumpectomy specimen revealed all margins negative for in situ or invasive cancer. Margin closest to invasive was the anterior margin was less than 1 mm margin, and closest DCIS margin 1.5 mm from inferior margin. The size of the tumor was 2.5 cm. The patient intraoperative had methylene blue injection to facilitate identification of the sentinel node. The neoprobe was not functional at the time of surgery. One sentinel lymph node was removed which was positive for isolated tumor cells. The patient has not had any fever or chills. All margins are negative anterior margin is margin which was skin. The patient had an Oncotype performed which was started and she is receiving chemotherapy which will start next week. She was receiving radiation following this. The area of the incision has no further drainage. Is healed well at this time. Postoperatively the patient is doing well at the area of the trifurcation there was some eschar noted on her prior visit which has completely healed. All sutures were removed. Lungs: clear heart: RRR incision: Clean and dry, incision clean and dry, all sutures removed Impression/Plan 1. Patient doing well postoperatively 2. Patient to started chemo She had a PICC line placed 3. Follow-up 4 weeks for repeat evaluation
== END ==
LOC: WWCWWP 11:53
PROVIDERS: ATTEND Surgery
DX: C50.912 Malignant neoplasm of unspecified site of left female breast (principal); Z51.11 Encounter for antineoplastic chemotherapy; Z45.2 Encounter for adjustment and management of vascular access device

== ENCOUNTER → 2020-07-07 | Outpatient (CLI) | payer MEDICARE, BC ==
[2020-07-07 10:05] VITALS: BP 127/75; PULSE 99; RESP 18; TEMP 98.4
--- NOTE | 2020-07-07 10:21 | P.PN ---
Progress Note - Text Progress Note Date: 07/07/20 Ashley is a 69-year-old white female status post left breast lumpectomy and sentinel node biopsy on . The lumpectomy specimen revealed all margins negative for in situ or invasive cancer. Margin closest to invasive was the anterior margin was less than 1 mm margin, and closest DCIS margin 1.5 mm from inferior margin. The size of the tumor was 2.5 cm. The patient intraoperative had methylene blue injection to facilitate identification of the sentinel node. The neoprobe was not functional at the time of surgery. One sentinel lymph node was removed which was positive for isolated tumor cells. The patient has not had any fever or chills. All margins are negative anterior margin is margin which was skin. The patient had an Oncotype performed which was started and she is receiving chemotherapy. She has 1 more treatment of chemotherapy left. These are breast is healing without difficulty. She was receiving radiation following this. The area of the incision has no further drainage. Is healed well at this time. Postoperatively the patient is doing well at the area of the trifurcation there was some eschar noted on a prior visit which has completely healed. Lungs: clear heart: RRR incision: Clean and dry, incision clean and dry, at this time the wound is completely healed. Impression/Plan 1. Patient doing well postoperatively 2. Patient to started chemo She had a PICC line placed 3. Follow-up 4 weeks for repeat evaluation 4. Follow-up in 3 months
== END ==
LOC: WWCWWP 09:23
PROVIDERS: ATTEND Surgery
DX: Z08 Encounter for follow-up examination after completed treatment for malignant neoplasm (principal); Z98.890 Other specified postprocedural states

== ENCOUNTER → 2020-09-21 | Outpatient (CLI) | payer MEDICARE, BC ==
--- NOTE | 2020-09-21 12:16 | BD ---
EXAMINATION TYPE: Axial Bone Density DATE OF EXAM: 09/21/2020 COMPARISON: NONE CLINICAL HISTORY: 70 YR OLD FEMALE....ICD-10 CODE: M85.9 OSTEOPENIA, Z79.9.890 MENOPAUSAL Height: 65.2 Weight: 212 FRAX RISK QUESTIONS: Glucocorticoids (More than 3mos): YES (Ex: prednisone, prednisolone, methylprednisolone, dexamethasone, and hydrocortisone). 3. Menopause before 45: AT 43 YRS OLD RISK FACTORS HISTORY OF: Surgery to Spine TO NECK ONLY Postmenopausal woman: YES, AT AGE 43 Poor Health: YES, CANCER Hyperparathyroidism: NO Adrenal Insufficiency: NO MEDICATIONS: Prednisone or other steroids: YES, FOR COPD Additional Medications: BP MEDS, HX OF CHEMO AND RADIATION FOR BREAST CANCER IN LT BREAST, Additional History: HX OF BREAST CANCER, BILAT TKRs, OSTEOARTHRITIS, HYPERTENSION, EXAM MEASUREMENTS: Bone mineral densitometry was performed using the [employer] System. Bone mineral density as measured about the Lumbar spine is: ----- L1-L4(G/cm2): 1.587 T Score Values are as follows: ----- L1: 2.8 ----- L2: 2.4 ----- L3: 4.3 ----- L4: 4.8 ----- L1-L4: 3.4 Bone mineral density FIRST BONE DENSITY STUDY AT [facility] Bone mineral density about the R hip (g/cm2): 1.174 Bone mineral density about the L hip (g/cm2): 1.185 T Score values are as follows: -----R Neck: 0.8 -----L Neck: 1.0 -----R Total: 1.3 -----L Total: 1.4 Bone mineral density FIRST DEXA AT [facility] FRAX%s: THERE IS A 9.2% CHANCE FOR A MAJOR OSTEOPOROTIC FX AND A 0.3% FOR HIP.....PROBABILITY FOR FX IN 10 YRS TIME IMPRESSION: Normal bone mineral density. NOTE: T-SCORE=SD OF THE YOUNG ADULT MEAN.
== END | disposition home or self-care (01) ==
LOC: RADBDWWP 11:05
PROVIDERS: ATTEND Internal Medicine Hematology & Oncology
DX: M85.9 Disorder of bone density and structure, unspecified (principal)
CPT/HCPCS: 77080

== ENCOUNTER → 2020-09-22 | Outpatient (CLI) | payer MEDICARE, BC ==
--- NOTE | 2020-09-22 16:02 | US ---
EXAMINATION TYPE: US venous doppler duplex UE RT DATE OF EXAM: 09/22/2020 COMPARISON: NONE CLINICAL HISTORY: M79.621Pain R upper limb Swelling R upper limb R22.31. Pt states right arm pain/ pt just finished chemo treatments for left breast CA/ pt states history of PICC line in right arm, rece ntly removed SIDE PERFORMED: Right Right Arm: Negative for DVT Results called to Yovani at 's office at time of exam IMPRESSION: No sonographic evidence for deep vein thrombosis of the right arm at this time.
== END | disposition home or self-care (01) ==
LOC: RADUSWWP 15:29
PROVIDERS: ATTEND Internal Medicine Hematology & Oncology
DX: M79.621 Pain in right upper arm (principal); R22.31 Localized swelling, mass and lump, right upper limb; Z85.3 Personal history of malignant neoplasm of breast

== ENCOUNTER → 2020-10-12 | Outpatient (CLI) | payer MEDICARE, BC ==
[2020-10-12 14:48] VITALS: BP 152/84; PULSE 87; RESP 16; TEMP 97.9
--- NOTE | 2020-10-12 14:54 | P.PN ---
Subjective Progress Note Date: 10/12/20 Principal diagnosis: stage IIA left breast cancer; T2pN(in)[id number]+Pr+Her2- Ashley is a 70 year-old white female status post left breast lumpectomy and sentinel node biopsy on . This was a high grade 2.5 cm invasive ductal carcinoma, 6 mm of DCIS was identified. The margins were uninvolved with invasive cancer and DCIS was less than 1 mm from the anterior margin. One sentinel lymph node was found to have isolated tumor cells less than 0.2 mm and less than 200 cells. She was a T2N0 (in) Oncotype DX 30%. The patient received adjuvant chemotherapy A/C for 4 cycles. She also underwent adjuvant radiation therapy which she completed in mid September. This week she started on letrazole. She is tolerating it without difficulty. Note from Dr. Garibay reviewed from 07-27-20 Caffeine: One cup per day Nicotine: Stopped 40 years ago Chocolate: occasional Family history: mother: lymphoma Hormonal History: menarche: 11 , breast fed: no, age at first : 20 menopause: 42 BCP: < 1 year hormones; none Surgical history: 1. Cervical spine surgery 2. bi-lateral knee Replacement 3. bilateral cataract 4. tubaligation/ovarian cyst 5. Umbilical hernia repair 6. 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 Social History: smoke: none, stopped 4 years ago did smoke 1 1/2 PPD for 25 years alcohol: occasional drugs: none - Constitutional Constitutional: Denies chills, Denies fever - EENT Comment: bilateral cataract Ears: bilateral: decreased hearing Ears, nose, mouth and throat: Denies headache, Denies sore throat - Breasts Breasts: bilateral: as per HPI - Cardiovascular Cardiovascular: Reports high blood pressure - Respiratory Comment: COPD - Gastrointestinal Comment: IBS Gastrointestinal: Reports diarrhea, Denies abdominal pain, Denies nausea, Denies vomiting - Genitourinary (Female) Comment: UTI last year - Menstruation Menstruation: Reports postmenopausal - Musculoskeletal Comment: arthritis, cervical spine surgery - Integumentary Integumentary: Denies pruritus, Denies rash - Neurological Neurological: Reports weakness, Denies numbness - Psychiatric Psychiatric: Reports anxiety - Endocrine Endocrine: Denies fatigue, Denies weight change - Hematologic/Lymphatic Comment: takes baby aspirin - Allergic/Immunologic Allergic/Immunologic: Reports as per HPI Objective - Constitutional General appearance: Present: cooperative - EENT Eyes: Present: EOMI ENT: Present: hearing grossly normal - Neck Neck: Present: normal ROM - Respiratory Respiratory: bilateral: CTA - Cardiovascular Heart sounds: normal: S1, S2 - Integumentary Integumentary: Present: normal turgor - Musculoskeletal Musculoskeletal: Present: gait normal - Psychiatric Psychiatric: Present: A&O x's 3, appropriate affect, intact judgment & insight - Additional findings Additional findings: Breast Exam: BRA: large sports bra inspection: Left breast smaller than right breast, radiations changes of the skin on the left breast; right breast grade 3 ptosis, left breast grade 2 ptosis Palpation: Right breast: No dominant masses or nodules of concern, fibrocystic changes Right axilla: No adenopathy of concern Left breast: No dominant masses or nodules of concern, postoperative and postradiation changes Left axilla: No adenopathy of concern Patient has difficulty with mobility of the right shoulder; she was recently seen by orthopedic surgery and they wanted to wait and she has recovered from her breast cancer treatment to do any further treatment. She had a steroid shot at this time. 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 Bilateral mammogram in 6 weeks with physician exam at that time 2. Continue Femara 3. Continue follow-up with radiation oncology 4. Continue follow-up with orthopedic surgery CC: Dr. Pepe
== END ==
LOC: WWCWWP 14:35
PROVIDERS: ATTEND Surgery
DX: N60.11 Diffuse cystic mastopathy of right breast (principal); I10 Essential (primary) hypertension; J44.9 Chronic obstructive pulmonary disease, unspecified; C95.90 Leukemia, unspecified not having achieved remission; M25.511 Pain in right shoulder; F17.210 Nicotine dependence, cigarettes, uncomplicated; Z92.3 Personal history of irradiation; Z98.890 Other specified postprocedural states; Z92.21 Personal history of antineoplastic chemotherapy; Z88.5 Allergy status to narcotic agent; Z88.6 Allergy status to analgesic agent; Z91.09 Other allergy status, other than to drugs and biological substances; Z88.1 Allergy status to other antibiotic agents

== ENCOUNTER → 2020-10-16 | Outpatient (CLI) | payer MEDICARE, BC ==
--- NOTE | 2020-10-17 15:00 | MM ---
Reason for exam: additional evaluation requested from prior study. Last mammogram was performed 7 months ago. History: Patient has history of breast cancer at age 69 and has history of other cancer at age 66. Family history of breast cancer in sister at age 60 and breast cancer in cousin. Chemotherapy, September 2020. Radiation therapy, September 2020. Malignant US breast localization LT, March 29, 2020. Lumpectomy of the left breast, March 29, 2020. Malignant US biopsy breast VAD LT of the left breast, March 07, 2020. Benign stereotactic core biopsy of the left breast, 2009. Taking antineoplastic beginning at age 69. Physical Findings: Nurse did not find any significant physical abnormalities on exam. MG 3D Diag Mammo W/Cad RT CC and MLO view(s) were taken of the right breast. Prior study comparison: September 09, 2019, bilateral MG 3d screening mammo w/cad. The breast tissue is heterogeneously dense. This may lower the sensitivity of mammography. No significant new findings when compared with previous films. These results were verbally communicated with the patient and result sheet given to the patient on 10/16/20. ASSESSMENT: Benign, BI-RAD 2 RECOMMENDATION: Follow-up diagnostic mammogram of both breasts in 4 months. Back on schedule.
== END | disposition home or self-care (01) ==
LOC: RADMAMWWP 08:52
PROVIDERS: ATTEND Surgery
DX: R92.2 Inconclusive mammogram (principal); Z85.3 Personal history of malignant neoplasm of breast
CPT/HCPCS: 77065; G0279; 77061

== ENCOUNTER → 2020-12-08 | Outpatient (CLI) | payer MEDICARE, BC ==
--- NOTE | 2020-12-08 16:23 | MR ---
EXAMINATION TYPE: MR shoulder RT wo con DATE OF EXAM: 12/08/2020 COMPARISON: Plain film 11/24/2020 HISTORY: RT shoulder pain TECHNIQUE: Multiplanar, multisequence imaging of the right shoulder is performed without contrast. FINDINGS: There are findings of calcific tendinitis, calcification present at the level of the insert ion of the rotator cuff. There is motion which may limit evaluation. Rotator Cuff: Rotator cuff is attenuated. There is abnormal increased signal within the substance. He art show full thickness tear suspected, coronal image #13, sagittal image #19 Acromioclavicular Joint: Hypertrophic changes are present, question a small distal acromial spur Glenohumeral Joint: There is osteoarthritic change with joint space loss, remodeling at the glenohume ral joint, joint effusion is present Labrum: Increased intrinsic signal may be due to degenerative fraying or tear Biceps Tendon: Fluid is present along the long head of biceps tendon Bone marrow signal: Probable reactive marrow signal changes present in the subchondral bony glenoid, humeral head, there is pseudocyst formation in the humeral head Other: No additional significant abnormality is appreciated. IMPRESSION: Osteoarthritic changes, chronic rotator cuff tear is partial, there is marked attenuation of the tend on, correlate for impingement, limitations as described.
== END | disposition home or self-care (01) ==
LOC: RADMRIMAIN 11:06
PROVIDERS: ATTEND Orthopaedic Surgery
DX: M19.011 Primary osteoarthritis, right shoulder (principal); M75.111 Incomplete rotator cuff tear or rupture of right shoulder, not specified as traumatic

== ENCOUNTER → 2020-12-25 | Outpatient (CLI) | payer MEDICARE, BC | END | disposition home or self-care (01) | LOC: LABPAT 13:19 | PROVIDERS: ATTEND Orthopaedic Surgery | DX: Z01.812 Encounter for preprocedural laboratory examination (principal) | CPT/HCPCS: 87070 ==

== ENCOUNTER 2021-01-02 13:25 | Day surgery (SDC) | payer MEDICARE, BC ==
[2020-12-29 12:35] VITALS: BMI 33.5
--- NOTE | 2021-01-01 09:30 | HP ---
HISTORY AND PHYSICAL CHIEF COMPLAINT: Right shoulder pain. HISTORY OF PRESENT ILLNESS: The patient is a 70-year-old left-hand dominant retired female who presents with progressive right shoulder pain for the past several years. She notes it has worsened recently. She is having pain pretty much all day. She is having pain with attempted overhead use in addition to severe night symptoms. She has tried previous injections, medications and exercises, with no real relief. PAST MEDICAL HISTORY: Significant for breast cancer, leukemia, hypertension and arthritis. PAST SURGICAL HISTORY: Significant for lumpectomy in addition to total knee arthroplasty. CURRENT MEDICATIONS: Lozol, amlodipine, aspirin, gabapentin, meloxicam, indapamide, pantoprazole, Symbicort, Zoloft and Valium. ALLERGIES: BACTRIM. FAMILY HISTORY: Noncontributory. SOCIAL HISTORY: Significant for previous tobacco use. REVIEW OF SYSTEMS: Sixteen-point review of systems otherwise reviewed and is noncontributory. PHYSICAL EXAMINATION: The patient is approximately 5 feet 7 inches, 207 pounds of endomorphic habitus. HEENT exam is nonfocal. Neck is supple. She is tender about the right shoulder over the anterior subacromial space. She has moderate crepitus. Active range of motion: Forward elevation 75 degrees, external rotation with arm to side 25 degrees, internal rotation to the buttock. Passively I am able to forward elevate her to 90 degrees. Impingement test, Neer test and Speed tests are positive. Her distal neurovascular exam appears intact in the right upper extremity. X-rays of the right shoulder to include 3 views, AP, outlet and axillary lateral show severe glenohumeral joint osteoarthrosis with [id number] changes. There are some subacromial calcifications. Previous MRI of the right shoulder shows increased signal along the anterior aspect and supraspinatus. IMPRESSION: 1. Right severe glenohumeral joint osteoarthrosis, symptomatic. 2. History of breast cancer. 3. History of leukemia. RECOMMENDATIONS: I talked to the patient at length regarding her condition along with treatment options. At this point she is quite limited because of pain related to her osteoarthrosis despite previous conservative measures. After thorough discussion, she opted to proceed with surgery. We will plan to proceed with right total shoulder arthroplasty. Risks and benefits were discussed at length in layman's terms. MMODL / IJN: [id number] / MTDD
[~2021-01-02 13:25] MED LIST changes: +ACETAMINOPHEN TAB 500 MG TAB PO PRN; +DEXAMETHASONE SOD PHOSPHATE 4 MG/ML 1 ML VIAL IV ONE; +LIDOCAINE 1% (10MG/ML) FOR IV START INTRADERMA PRN; -LIDOCAINE 1% INJ 10MG/ML (20 ML MDV) SQ ONE; +MELOXICAM 7.5 MG TAB PO PRN; +ONDANSETRON 4 MG/2 ML VIAL IVP ONE; +TRANEXAMIC ACID 1,000 MG in SODIUM CHLORIDE 0.9% 100 ML IVPB PRN
[2021-01-02] MEDS: LACTATED RINGERS 1,000 ML IV SCH ×2 (14:08→21:17)
[2021-01-02] MEDS ORDERED: fentaNYL (PF) 50 MCG/ML 2 ML AMP IVP ONE ×2 (14:14)
[2021-01-02] MEDS ORDERED: MIDAZOLAM 2 MG/2 ML VIAL IVP ONE (14:14)
[2021-01-02] MEDS ORDERED: ROCURONIUM 10 MG/ML (5 ML VIAL) IV ONE (15:31)
[2021-01-02] MEDS ORDERED: ROPIVACAINE 5 MG/ML 30 ML VIAL ONE (15:31)
[2021-01-02] MEDS ORDERED: DEXAMETHASONE SOD PHOSPHATE 4 MG/ML 1 ML VIAL ONE (15:31)
[2021-01-02] MEDS ORDERED: fentaNYL (PF) 50 MCG/ML 2 ML AMP ONE (15:31)
[2021-01-02] MEDS ORDERED: NEOSTIGMINE 1 MG/ML 10 ML VIAL ONE (15:31)
[2021-01-02] MEDS ORDERED: LIDOCAINE 1% INJ 10MG/ML (20 ML MDV) ONE (15:31)
[2021-01-02] MEDS ORDERED: SUCCINYLCHOLINE CHLORIDE 100 MG/5 ML SYR IV ONE (15:31)
[2021-01-02] MEDS ORDERED: TRANEXAMIC ACID 1,000 MG/10 ML VIAL ONE (15:31)
[2021-01-02] MEDS ORDERED: SODIUM CHLORIDE 0.9% 100 ML BAG ONE (15:31)
[2021-01-02] MEDS ORDERED: PROPOFOL 10 MG/ML 20 ML VIAL IV ONE (15:31)
[2021-01-02] MEDS ORDERED: GLYCOPYRROLATE 0.2 MG/ML 2 ML VIAL ONE (15:31)
--- NOTE | 2021-01-02 16:50 | P.ANPRN ---
Procedure Note - Anesthesia - Nerve Block Performed Right Interscalene Single Time Out Performed: No (14:13) Date of Procedure: 01/02/21 Procedure Start Time: 14:17 Procedure Stop Time: :25 Location of Patient: PreOp Indication: Acute Post-Operative Pain, Dx/Pain Location (Right shoulder), Requested by Surgeon Specifically requested for management of pain by : Jose Roberto Simon Sedation Type: Sedate with meaningful contact maintained Preparation: Sterile Prep Position: Supine Catheter: None Needle Types: Pajunk Needle Gauge: 21 Ultrasound used to visualize needle placement: Yes Ultrasound used to observe medication spread: Yes Injectate: 0.5% Ropivacaine (see comment for volume) (25cc Ropivicaine 0.375%) Blood Aspirated: No Pain Paresthesia on Injection Noted: No Resistance on Injection: Normal Image Stored and Saved: Yes Events: Uneventful and Well Tolerated
[2021-01-02] MEDS ORDERED: HYDROcodone/APAP 5-325MG 1 EACH TAB PO PRN (17:38)
[2021-01-02] MEDS ORDERED: HYDROmorphone 0.5 MG/0.5 ML SYRINGE IVP PRN (17:38)
[2021-01-02] MEDS ORDERED: ONDANSETRON 4 MG/2 ML VIAL IVP PRN (17:38)
[2021-01-02] MEDS ORDERED: ACETAMINOPHEN TAB 325 MG TAB PO PRN (17:41)
--- NOTE | 2021-01-02 17:55 | P.OP ---
Date of Procedure: 01/02/21 Preoperative Diagnosis: Severe right glenohumeral joint osteoarthrosis Postoperative Diagnosis: Same Procedure(s) Performed: Right total shoulder arthroplasty Implants: Arthrex small glenoid component, 41 x 18 humeral head, medium cage screw, 41 mm trunnion. Anesthesia: [facility] Surgeon: Jose Roberto Simon Wine Specialist #1: Alfredito Levine Estimated Blood Loss (ml): 100 Pathology: other (Humeral head) Condition: stable Disposition: PACU Indications for Procedure: The patient's a 70-year-old female presents with progressive right shoulder pain secondary to osteoarthrosis despite conservative measures. A discussion of the risks and benefits of operative intervention versus continued conservative measures was made with patient. She proceed with surgery. Operative risks to include infection, neurovascular injury, development of blood clots, possible fracture, possible component loosening/failure and need for subsequent procedures was discussed. Informed consent was obtained. Operative Findings: As below Description of Procedure: The patient was brought to the operating room, and after induction of general anesthesia was placed in the beachchair position. The bony prominences were appropriately padded. The right upper extremity was prepped and draped in normal fashion. A deltopectoral incision was then made lateral to the coracoid process extending approximately 12 cm. The skin was incised sharply. Subcutaneous tissues were divided bluntly. Electrocautery was used for hemostasis. The deltopectoral interval was identified and the cephalic vein gently retracted laterally with the deltoid. Subdeltoid adhesions were bluntly dissected. A self-retaining retractor was placed. The clavipectoral fascia was opened and the conjoined tendon gently retracted medially. The upper one third of the pectoralis major was released to help facilitate exposure. The biceps was identified and the sheath was opened. The rotator interval was opened. The biceps was tenotomized and allowed to retract distally. A subscapularis peel was performed. This was tagged with #2 Ethibond suture. The humeral head was then exposed releasing the capsule off the humeral neck. The shoulder was gently dislocated. The humeral head resection guide was then placed planning on 30 of retroversion. This was flush with the rotator cuff insertion superiorly along the [place] neck. The cutting block was pinned in place. The humeral head cut was then made. This measured most appropriately at a 41 mm. Residual inferior osteophytes were carefully removed flush with the [place] cortical bone. The proximal humerus was prepared with the trunion guide in place inserted in the starter reamer to the appropriate depth. A protecting plate was placed. Attention was then paid towards preparing the glenoid. A posterior glenoid retractor was placed. The glenoid was then exposed releasing the labrum from the 12-6 o'clock position. Residual labral tissue was removed. The glenoid sized most appropriately at a small. A guidewire was then inserted planning on the appropriate version. The glenoid was reamed down to a bleeding bony surface. The central peg hole was drilled. The alignment guide was placed in the peripheral peg holes drilled. The trial size small glenoid was placed and was fully seated. There was good anterior to posterior and inferior to superior fit. The trial component was removed. Pulsatile lavage was utilized. The bony surface was dried. The peripheral peg holes were then pressurized with cement utilizing a syringe. Excess cement was removed. The glenoid component was then gently impacted. Care was taken to ensure it was fully seated. This was held in place until the cement had sufficiently hardened. Attention was then paid again towards preparing the proximal humerus. The 41 mm trying was placed along with a medium compression screw. This was fully seated with good purchase. A trial 41 x 18 mm head was placed. The shoulder was gently reduced. It was taken through a range of motion. It was felt to be stable in flexion and extension with internal and external rotation. I felt there was adequate re storation of soft tissue tension. The shoulder was gently dislocated. The trial head was then removed. The final head was gently impacted. Pulsatile lavage was utilized. The rotator interval was closed with #2 Ethibond suture. The subscapularis was repaired utilizing 2 medial push lock anchors with FiberWire that were then secured laterally with corkscrew anchors. Final repair obtain good compression of the subscapularis over the footprint. She had minimal drainage at this point therefore a deep drain was not placed. The deltopectoral interval was closed with interrupted 2-0 Vicryl sutures. The subcu tissues were reapproximated with interrupted 2-0 Vicryl sutures. The skin was reprepped with 3-0 subcuticular Prolene suture. Steri-Strips were applied. A sterile dressing was applied in addition to a sling. The patient was then awoken from general anesthesia and transferred to recovery room in good condition. Blood loss was estimated at 100 mL. No complications were incurred. Sponge and needle counts were correct at the end the case. Reinaldo DAVENPORT assisted during the major components the case to include exposure, resection, implantation, and closure.
[2021-01-02] MEDS: HYDROmorphone 0.5 MG/0.5 ML SYRINGE IVP PRN ×3 (17:56→18:20)
[2021-01-02] MEDS ORDERED: KETOROLAC 15 MG/ML 1 ML VIAL ONE (18:38)
[2021-01-02] MEDS ORDERED: KETOROLAC 15 MG/ML 1 ML VIAL IVP ONE (18:44)
--- NOTE | 2021-01-02 18:58 | XR ---
EXAMINATION TYPE: XR shoulder limited RT DATE OF EXAM: 01/02/2021 COMPARISON: 04/14/2018 HISTORY: Shoulder surgery TECHNIQUE: Single view FINDINGS: There is a right shoulder prosthesis. Components appear in anatomic position. IMPRESSION: No complicating process seen.
[2021-01-02] MEDS ORDERED: MELATONIN 12 MG PO SCH (21:45)
[2021-01-02] MEDS: SYMBICORT 160-4.5 MCG INHALER INHALATION SCH (21:51)
[2021-01-02] MEDS: HYDROcodone/APAP 7.5-325MG 1 EACH TAB PO PRN (22:24)
[2021-01-03] MEDS: HYDROcodone/APAP 7.5-325MG 1 EACH TAB PO PRN ×2 (03:46→10:47)
[2021-01-03] MEDS ORDERED: ZOLPIDEM 5 MG TAB PO PRN (04:25)
[2021-01-03] MEDS ORDERED: IPRATROPIUM-ALBUTEROL 3 ML NEB INHALATION PRN (04:26)
--- NOTE | 2021-01-03 04:31 | P.CONS ---
History of Present Illness - Reason for Consult Consult date: 01/02/21 medical management Requesting physician: Jose Roberto Simon - Chief Complaint right shoulde pain - History of Present Illness 70-year-old female with history of breast cancer, COPD, hypertension Comes in for scheduled right shoulder total arthroplasty tolerated procedure well observed immediate postoperative complications. Patient tolerated by mouth intake. Pain is well tolerated. Fevers chills chest pain trouble breathing abdominal pain nausea or vomiting. Review of Systems Pertinent positives as noted in HPI. All other systems were reviewed and are negative Past Medical History Past Medical History: Cancer, COPD, Hypertension, Osteoarthritis (OA) Additional Past Medical History / Comment(s): HX DIVERTICULOSIS AND COLITIS, DDD, leukemia dx. 2 1/2 yrs. ago-Dr. Hartmann monitors but has had no chemo/radiation, had Covid in 2019, dx. breast cancer 2020-had surg, chemo & radiation History of Any Multi-Drug Resistant Organisms: None Reported Past Surgical History: Appendectomy, Hernia Repair, Hysterectomy, Joint Replacement, Tonsillectomy, Tubal Ligation Additional Past Surgical History / Comment(s): UMB. HERNIA WITH MESH., AYAN KNEE REPLACEMENTS, AYAN CATARACTS, egd, cervical fusion, left breast lumpectomy Past Anesthesia/Blood Transfusion Reactions: No Reported Reaction Past Psychological History: No Psychological Hx Reported Smoking Status: Former smoker, Never smoker Past Alcohol Use History: None Reported Additional Past Alcohol Use History / Comment(s): quit smoking 4 yrs. ago, smoked on and off since age 18 Past Drug Use History: None Reported - Past Family History Mother Family Medical History: Cancer Additional Family Medical History / Comment(s): Brain CA Father Family Medical History: COPD, CVA/TIA, Hyperlipidemia, Hypertension, Myocardial Infarction (MT) Medications and Allergies Home Medications Medication Instructions Recorded Confirmed Type Aspirin [Adult Low Dose Aspirin EC] 81 mg PO DAILY 06/05/16 12/29/20 History Indapamide [Lozol] 2.5 mg PO DAILY 06/05/16 01/02/21 History Zolpidem [Ambien] 10 mg PO HS PRN 06/05/16 01/02/21 History Budesonide-Formot 160-4.5 Mcg 2 puff INHALATION BID 30 Days #1 06/20/17 01/02/21 Rx [Symbicort 160-4.5 Mcg Inhaler] inhaler Meloxicam [Mobic] 15 mg PO DAILY 03/01/20 12/29/20 History amLODIPine [Norvasc] 10 mg PO DAILY 03/01/20 01/02/21 History Letrozole [Femara] 2.5 mg PO DAILY 12/29/20 01/02/21 History Melatonin [Melatonin Disolving] 12 mg PO HS 12/29/20 01/02/21 History Allergies Allergy/AdvReac Type Severity Reaction Status Date / Time perfume Allergy Unknown Dyspnea Verified 01/02/21 13:43 nitrofurantoin Allergy Itching Verified 01/02/21 13:43 [From Macrobid] Physical Exam Vitals: Vital Signs Temp Pulse Resp BP Pulse Ox 01/03/21 02:14 97.9 F 68 17 151/82 94 L 01/02/21 20:31 97.7 F 86 17 144/74 92 L 01/02/21 20:00 68 17 01/02/21 19:15 80 14 152/70 96 01/02/21 18:45 89 14 154/78 97 01/02/21 18:37 97.7 F 86 18 144/74 92 L 01/02/21 18:30 95 14 130/62 01/02/21 18:15 100 16 151/72 98 01/02/21 18:00 105 H 16 155/68 98 01/02/21 17:48 97.8 F 105 H 16 171/88 97 01/02/21 13:51 97.6 F 79 16 141/67 95 Intake and Output 01/02/21 01/02/21 01/03/21 14:59 22:59 06:59 Intake Total 300 650 480 Output Total 100 Balance 300 550 480 Intake: IV 300 650 Oral 480 Output: Estimated Blood Loss 100 Other: Weight 95 kg 95 kg Constitutional: No acute distress, conversant, pleasant Eyes: Anicteric sclerae, moist conjunctiva, Pupils equal round reactive to light ENMT: NC/AT Oropharynx clear, no erythema, or exudates Neck: Supple, FROM, no masses, or JVD No carotid bruits No thyromegaly Lungs: Clear to auscultation Clear to percussion Normal respiratory effort, no accessory muscle use Cardiovascular: Heart regular in rate and rhythm, No murmurs, gallops, or rubs No peripheral edema Abdominal: Soft Nontender, no guarding, rebound or rigidity Abdomen moving with respiration Normoactive bowel sounds No hepatomegaly, No splenomegaly No palpable mass No abdominal wall hernia noted Skin: Normal temperature, tone, texture, turgor No induration No subcutaneous nodules No rash, lesions No ulcers Extremities: No digital cyanosis No clubbing Pedal pulses intact and symmetrical Radial pulses intact and symmetrical No calf tenderness Psychiatric: Alert and oriented to person, place and time Appropriate affect fair judgement Neuro Muscles Strength 5/5 in bilateral lower extremity and left upper extremity. Right upper extremity limited due to surgery Sensation to light touch grossly present throughout Cranial nerves II-XII grossly intact No focal sensory deficits Lymphatics: no palpable cervical or supraclavicular , or inguinal lymph nodes Assessment and Plan Assessment: Status post post right shoulder arthroplasty postoperative day 0 DVT prophylaxis per orthopedics Conditions COPD compensated Resume home inhalers, DuoNeb's when necessary Hypertension currently controlled Resume home blood pressure medications Insomnia When necessary Ambien Patient is full code Follow-up CBC and BMP Thank you for allowing us to participate in the care of this patient. Do not hesitate to contact us with questions. Someone can be reached from the [facility] hospitalist group at all hours of the day at [phone].
[2021-01-03] MEDS: SYMBICORT 160-4.5 MCG INHALER INHALATION SCH (07:34)
[2021-01-03] MEDS ORDERED: hydrOXYzine pamoate 25 MG CAP PO PRN (08:15)
[2021-01-03] MEDS ORDERED: INDAPAMIDE 2.5 MG PO SCH (09:00)
[2021-01-03] MEDS ORDERED: LETROZOLE 2.5 MG TAB PO SCH (09:00)
[2021-01-03] MEDS ORDERED: amLODIPine 10 MG TAB PO SCH (09:00)
[2021-01-03] MEDS ORDERED: ASPIRIN 325 MG TAB PO SCH (09:00)
[2021-01-03 09:20] VITALS: BP 169/77; PULSE 86; RESP 18; TEMP 97.3
[2021-01-03 09:21] LABS: Basophils # (A) 0.02 X 10*3/uL (0.00-0.10); Basophils % (A) 0.1 %; Eosinophils # (A) 0 X 10*3/uL (0.04-0.35); Eosinophils % (A) 0 %; HCT 40.4 % (37.2-46.3); Lymphocytes # (A) 1.13 X 10*3/uL (0.90-5.00); Lymphocytes % (A) 6.3 %; MCH 30.7 pg (27.0-32.0); MCHC 32.2 g/dL (32.0-37.0); MCV 95.5 fL (80.0-97.0); Mean Platelet Volume 9.5 fL (9.5-12.2); Monocytes # (A) 1.32 X 10*3/uL (0.20-1.00); Monocytes % (A) 7.3 %; Neutrophils # (A) 15.53 X 10*3/uL (1.80-7.70); Neutrophils % (A) 85.9 %; Platelet Count 337 X 10*3/uL (140-440); RBC 4.23 X 10*6/uL (4.10-5.20); RDW 13.4 % (11.5-14.5); WBC 18.08 X 10*3/uL (4.50-10.00)
--- NOTE | 2021-01-03 09:40 | P.PN ---
Subjective Progress Note Date: 01/03/21 Principal diagnosis: Status post right total shoulder arthroplasty Patient evaluated at bedside today, she is resting comfortably in her hospital bed. She is noting some soreness throughout the shoulder. She is utilizing arm sling at this time. She has ambulated a few different times, she is finding it a little bit easier each time. She denies any headaches, lightheadedness, shortness of breath, chest pain. She is starting to get most the feeling back in the right upper extremity from the block that was done preoperatively. Objective - Vital Signs Vital signs: Vital Signs Temp 97.3 F L 01/03/21 08:00 Pulse 86 01/03/21 08:00 Resp 18 01/03/21 08:00 BP 169/77 01/03/21 08:00 Pulse Ox 94 L 01/03/21 08:00 Intake & Output 01/02/21 01/03/21 01/03/21 18:59 06:59 18:59 Intake Total 950 480 Output Total 100 Balance 850 480 Weight 95 kg Intake: IV 950 Oral 480 Output: Estimated Blood Loss 100 Other: # Voids 2 - Exam Right upper extremity: Postoperative bandage was removed today at bedside, the Steri-Strips along with suture all in good position and condition. There is minimal soft tissue swelling and ecchymosis present. Sensation to light touch throughout the upper extremity is intact. Patient was wiggling all fingers with minimal difficulty, wrist extension and wrist flexion are intact. Elbow extension and elbow flexion are intact. Range of motion of the shoulder was not assessed. Her radial and ulnar pulses are 2+. - Labs CBC & Chem 7: 01/03/21 06:40 Labs: Abnormal Lab Results - Last 24 Hours (Table) 01/03/21 Range/Units 06:40 WBC 18.08 H (4.50-10.00) X 10*3/uL Immature Gran # 0.08 H (0.00-0.04) X 10*3/uL Neutrophils # 15.53 H (1.80-7.70) X 10*3/uL Monocytes # 1.32 H (0.20-1.00) X 10*3/uL Eosinophils # 0 L (0.04-0.35) X 10*3/uL Assessment and Plan Assessment: Postoperative day #1 status post right total shoulder arthroplasty Plan: Pain control, plan for discharge home on Orondo 5 mg/325 mg as needed DVT prophylaxis, aspirin 325 mg daily for 2 weeks, she will resume her 81 mg after the Activity level restrictions were discussed with patient, this including use of the arm sling Showering instructions were discussed the patient along with icing and elevating Medical recommendations Discharge planning: Likely discharged home today Time with Patient: Less than 30
[2021-01-03 09:46] LABS: African American GFR (CKD) 85.4 (60.0-200.0); Anion Gap 15.9 mmol/L (4.00-12.00); BUN/Creat Ratio 26.63 Ratio (12.00-20.00); Blood Urea Nitrogen 21.3 mg/dL (9.0-27.0); Calcium 9.9 mg/dL (8.7-10.3); Carbon Dioxide 24.1 mmol/L (21.6-31.8); Non-African American GFR(CKD) 73.7 (60.0-200.0); Potassium 3.7 mmol/L (3.5-5.5)
--- NOTE | 2021-01-03 09:49 | P.DS ---
Providers Date of admission: 01/02/2021 Expected date of discharge: 01/03/21 Attending physician: Jose Roberto Simon Consults: 01/02/21 17:38 Consult Physician Routine Consulting Provider: Alexys Mcqueen Consult Reason/Comments: medical management Do you want consulting provider notified?: Yes Primary care physician: [facility] Course: Date of admission: 01/02/2021 Date of discharge: 01/03/2021 Admission diagnosis: Status post right total shoulder arthroplasty Discharge diagnosis: Same Attending physician: Dr. Simon Surgical procedures: Right total shoulder arthroplasty Brief history: Patient is a 70-year-old female with a history of progressive primary right shoulder osteoarthritis. At this point patient has failed conservative treatment measures and has opted to proceed with a elective right total shoulder arthroplasty. Hospital course: Details of patient's surgery can be found in operative report. Patient tolerated the procedure well and was subsequently transported to orthopedic floor. Patient's orthopeidc and medical care was provided daily. Patient had daily laboratory tests performed for evaluation of overall blood counts. Patient had daily physical therapy to include strengthening range of motion as well as education with walker ambulation. Patient was treated with aspirin for their postoperative DVT prophylaxis during their inpatient stay. Patient was noted to have a relatively uneventful postoperative course. Patient reported satisfactory pain control with oral pain medications by postoperative day 0. Patient showed satisfactory progress with physical therapy. Patient moved steadily through the program and had no difficulty meeting the goals by postoperative day 1. Given patient's otherwise satisfactory course and having met physical therapy goals, plan is to discharge patient home on postoperative day 1. Discharge condition/disposition: Patient will be discharged home in stable condition. Discharge medications: Instructions are given on resumption of patient's normal daily medications per primary care recommendation, in addition patient will be prescribed Orient 5 mg/325 mg, aspirin 325 mg, Colace 100 mg. Discharge instructions: 1. Wound care and infection precautions, keep incision dry and covered while showering, no lotions, creams, moisturizers. No soaking, tubs, pools, hottubs. Do not scrub over the incision. 2. Utilize arm sling, basic hand, wrist and elbow exercises daily. 3. Ice and elevate when necessary. Do not exceed 20 minutes per hour with ice pack. 4. Utilize compression sleeve until seen at first follow up appointment. 7. Pain meds and anticoagulants per prescription. 8. Pain medication has potential to cause constipation. Increase oral fluid and fiber intake. Contact primary care provider if you have not had a bowel movement within 48 hours after discharge 9. No anti-inflammatory medication until discussed at first post operative visit, this including Motrin, Aleve, Mobic, Diclofenac 10. Follow up in office at 2 weeks postop with Reinaldo Levine PA-C/Yordan Dickinson 11. Follow up with your primary care doctor 7-10 days after discharge. 12. Contact [facility] with any questions, . Procedures: Right total shoulder arthroplasty Patient Condition at Discharge: Good Plan - Discharge Summary Discharge Rx Participant: Yes New Discharge Prescriptions: New Aspirin 325 mg PO DAILY #30 tab Docusate [Colace] 100 mg PO DAILY #30 capsule HYDROcodone/APAP 5-325MG [Orient 5-325] 1 tab PO Q6HR PRN #28 tab PRN Reason: Pain Discontinued Aspirin [Adult Low Dose Aspirin EC] 81 mg PO DAILY No Action Zolpidem [Ambien] 10 mg PO HS PRN PRN Reason: sleeplessness Indapamide [Lozol] 2.5 mg PO DAILY Budesonide-Formot 160-4.5 Mcg [Symbicort 160-4.5 Mcg Inhaler] 2 puff INHALATION BID 30 Days #1 inhaler amLODIPine [Norvasc] 10 mg PO DAILY Meloxicam [Mobic] 15 mg PO DAILY Letrozole [Femara] 2.5 mg PO DAILY Melatonin [Melatonin Disolving] 12 mg PO HS Discharge Medication List Indapamide [Lozol] 2.5 mg PO DAILY 06/05/16 [History] Zolpidem [Ambien] 10 mg PO HS PRN 06/05/16 [History] Budesonide-Formot 160-4.5 Mcg [Symbicort 160-4.5 Mcg Inhaler] 2 puff INHALATION BID 30 Days #1 inhaler 06/20/17 [Rx] Meloxicam [Mobic] 15 mg PO DAILY 03/01/20 [History] amLODIPine [Norvasc] 10 mg PO DAILY 03/01/20 [History] Letrozole [Femara] 2.5 mg PO DAILY 12/29/20 [History] Melatonin [Melatonin Disolving] 12 mg PO HS 12/29/20 [History] Aspirin 325 mg PO DAILY #30 tab 01/03/21 [Rx] Docusate [Colace] 100 mg PO DAILY #30 capsule 01/03/21 [Rx] HYDROcodone/APAP 5-325MG [Orient 5-325] 1 tab PO Q6HR PRN #28 tab 01/03/21 [Rx] Follow up Appointment(s)/Referral(s): Yordan Paula PAC [PHYSICIAN [facility]] - 01/18/21 10:00 am Activity/Diet/Wound Care/Special Instructions: Orthopedic discharge instructions: 1. Pain medication as needed 2. Keep incision covered and dry while showering 3. Utilize arm sling 4. Basic hand/wrist and elbow exercises 5. Ice the shoulder as needed 6. Plan for follow-up at [facility] in 2 weeks Discharge Disposition: HOME SELF-CARE
--- NOTE | 2021-01-03 11:54 | P.PN ---
Subjective Principal diagnosis: Hypertension Patient seen and examined at bedside. Patient is doing well after surgery. Blood pressure was elevated at time of exam. Patient has not yet received her morning medications. Patient denies chest pain shortness of breath nausea vomiting fevers or chills. Objective - Vital Signs Vital signs: Vital Signs Temp 97.3 F L 01/03/21 08:00 Pulse 86 01/03/21 08:00 Resp 18 01/03/21 08:00 BP 169/77 01/03/21 08:00 Pulse Ox 94 L 01/03/21 08:00 Intake & Output 01/02/21 01/03/21 01/03/21 18:59 06:59 18:59 Intake Total 950 480 Output Total 100 Balance 850 480 Weight 95 kg Intake: IV 950 Oral 480 Output: Estimated Blood Loss 100 Other: # Voids 2 - Exam General: [non toxic], [no distress], [appears at stated age] Derm: [warm], [dry] Head: [atraumatic], [normocephalic], [symmetric] Eyes: [EOMI], [no lid lag], [anicteric sclera] Mouth: [no lip lesion], [mucus membranes moist] Cardiovascular: [S1S2 reg], [no murmur], [positive posterior tibial pulse bilateral], Lungs: [CTA bilateral], [no rhonchi, no rales] , [no accessory muscle use] Abdominal: [soft], [ nontender to palpation], [no guarding], [no appreciable organomegaly] Ext: [no gross muscle atrophy], [no edema], [no contractures] Neuro: [ CN II-XI grossly intact], [no focal neuro deficits] Psych: [Alert], [oriented], [appropriate affect] - Labs CBC & Chem 7: 01/03/21 06:40 01/03/21 06:40 Labs: Abnormal Lab Results - Last 24 Hours (Table) 01/03/21 01/03/21 Range/Units 06:40 06:40 WBC 18.08 H (4.50-10.00) X 10*3/uL Immature Gran # 0.08 H (0.00-0.04) X 10*3/uL Neutrophils # 15.53 H (1.80-7.70) X 10*3/uL Monocytes # 1.32 H (0.20-1.00) X 10*3/uL Eosinophils # 0 L (0.04-0.35) X 10*3/uL Anion Gap 15.90 H (4.00-12.00) mmol/L BUN/Creatinine Ratio 26.63 H (12.00-20.00) Ratio Glucose 143 H (70-110) mg/dL Assessment and Plan Plan: Status post post right shoulder arthroplasty postoperative day #1 DVT prophylaxis per orthopedics Conditions COPD compensated Resume home inhalers, DuoNeb's when necessary Hypertension currently uncontrolled patiet gupta snot yet received morning medications Resume home blood pressure medications Insomnia When necessary Ambien Patient is full code Discharge planning Thank you for allowing us to participate in the care of this patient. Do not hesitate to contact us with questions. Someone can be reached from the [facility] hospitalist group at all hours of the day at [phone].
== END 2021-01-03 11:50 | disposition home or self-care (01) ==
LOC: OR 13:25 → 4SSUR 18:12 → OR 01-03 11:50
PROVIDERS: ATTEND Orthopaedic Surgery
DX: M19.011 Primary osteoarthritis, right shoulder (principal); M25.711 Osteophyte, right shoulder; I10 Essential (primary) hypertension; J44.9 Chronic obstructive pulmonary disease, unspecified; Z20.822 Contact with and (suspected) exposure to COVID-19; Z86.16 Personal history of COVID-19; Z92.21 Personal history of antineoplastic chemotherapy; Z92.3 Personal history of irradiation; Z90.710 Acquired absence of both cervix and uterus; Z87.891 Personal history of nicotine dependence; Z85.3 Personal history of malignant neoplasm of breast; Z85.6 Personal history of leukemia; Z98.51 Tubal ligation status; Z98.890 Other specified postprocedural states; Z90.49 Acquired absence of other specified parts of digestive tract; Z98.1 Arthrodesis status; Z96.653 Presence of artificial knee joint, bilateral; Z80.8 Family history of malignant neoplasm of other organs or systems; Z83.6 Family history of other diseases of the respiratory system; Z83.438 Family history of other disorder of lipoprotein metabolism and other lipidemia; Z82.49 Family history of ischemic heart disease and other diseases of the circulatory system; Z79.1 Long term (current) use of non-steroidal anti-inflammatories (NSAID); Z79.51 Long term (current) use of inhaled steroids; Z79.82 Long term (current) use of aspirin; Z79.811 Long term (current) use of aromatase inhibitors; Z79.899 Other long term (current) drug therapy; Z88.2 Allergy status to sulfonamides; Z91.048 Other nonmedicinal substance allergy status; Z88.1 Allergy status to other antibiotic agents; G47.00 Insomnia, unspecified
CPT/HCPCS: 94640; 87635; 73020; 23472; J2250; J1100; J0690; J2405; J3010; J1885; J1170; 80048; 85025

== ENCOUNTER → 2021-03-30 | Outpatient (CLI) | payer MEDICARE, BC ==
[2021-03-30 13:43] VITALS: BP 157/76; PULSE 78; RESP 16; TEMP 97.7
--- NOTE | 2021-03-30 13:58 | P.PN ---
Subjective Progress Note Date: 03/30/21 Principal diagnosis: stage IIA left breast cancer stage IIA left breast cancer; T2pN(in)[id number]+Pr+Her2- Ashley is a 70 year-old white female status post left breast lumpectomy and sentinel node biopsy on . This was a high grade 2.5 cm invasive ductal carcinoma, 6 mm of DCIS was identified. The margins were uninvolved with invasive cancer and DCIS was less than 1 mm from the anterior margin. One sentinel lymph node was found to have isolated tumor cells less than 0.2 mm and less than 200 cells. She was a T2N0 (in) Oncotype DX 30%. The patient received adjuvant chemotherapy A/C for 4 cycles. She also underwent adjuvant radiation therapy which she completed in mid September. She is taking letrazole. She is tolerating it without difficulty. She had a bilateral mammogram on 03-26-21 which was Benign BIRAD 2. She is not complaining of any new lumps, masses or nodules in her breast. Note from Dr. Garibay reviewed from 11-16-20 Caffeine: One cup per day Nicotine: Stopped 40 years ago Chocolate: occasional Family history: mother: lymphoma Hormonal History: menarche: 11 , breast fed: no, age at first : 20 menopause: 42 BCP: < 1 year hormones; none Surgical history: 1. Cervical spine surgery 2. bi-lateral knee Replacement 3. bilateral cataract 4. tubaligation/ovarian cyst 5. Umbilical hernia repair 6. Appendectomy 7. right shoulder replacement Medical history: HTN sleep medication COPD Leukemia follows with Dr. Hartmann Social History: smoke: none, stopped 4 years ago did smoke 1 1/2 PPD for 25 years alcohol: occasional drugs: none - Constitutional Constitutional: Denies chills, Denies fever - EENT Comment: bilateral cataract Ears: bilateral: decreased hearing Ears, nose, mouth and throat: Denies headache, Denies sore throat - Breasts Breasts: bilateral: as per HPI - Cardiovascular Cardiovascular: Reports high blood pressure - Respiratory Comment: COPD - Gastrointestinal Comment: IBS Gastrointestinal: Reports diarrhea, Denies abdominal pain, Denies nausea, Denies vomiting - Genitourinary (Female) Comment: UTI last year - Menstruation Menstruation: Reports postmenopausal - Musculoskeletal Comment: arthritis, cervical spine surgery - Integumentary Integumentary: Denies pruritus, Denies rash - Neurological Neurological: Reports weakness, Denies numbness - Psychiatric Psychiatric: Reports anxiety - Endocrine Endocrine: Denies fatigue, Denies weight change - Hematologic/Lymphatic Comment: takes baby aspirin - Allergic/Immunologic Allergic/Immunologic: Reports as per HPI Objective - Vital Signs Vital signs: Vital Signs Temp 97.7 F 03/30/21 13:36 Pulse 78 03/30/21 13:36 Resp 16 03/30/21 13:36 BP 157/76 03/30/21 13:36 Pulse Ox Intake & Output 03/29/21 03/30/21 03/30/21 18:59 06:59 18:59 Weight 99.79 kg - Constitutional General appearance: Present: cooperative - EENT Eyes: Present: EOMI ENT: Present: hearing grossly normal - Neck Neck: Present: normal ROM - Respiratory Respiratory: bilateral: CTA - Cardiovascular Rhythm: regular Heart sounds: normal: S1, S2 - Gastrointestinal General gastrointestinal: Present: soft - Integumentary Integumentary: Present: normal turgor - Musculoskeletal Musculoskeletal: Present: gait normal - Psychiatric Psychiatric: Present: A&O x's 3, appropriate affect, intact judgment & insight - Additional findings Additional findings: Breast Exam: BRA: 44B inspection: Postoperative and postradiation changes left breast, bilateral grade 3 ptosis Palpation: Right breast: Multi-positional exam fibrocystic changes no dominant masses or nodules of concern Right axilla: No adenopathy of concern Fungal infection under right breast Left breast: Multi-positional exam postradiation and postsurgical changes no dominant masses or nodules of concern Left axilla: No adenopathy of concern Assessment and Plan Assessment: Impression: Staged IIA left breast cancer status post lumpectomy/radiation/sentinel node biopsy/chemotherapy/patient presently on letrazole no evidence of recurrent cancer Recent bilateral mammogram 03-26-21 benign BIRADS 2 Asymmetry of the breast at this time the patient is not interested in a reduction mammoplasty on the right Plan: Follow up here in 6 months Bilateral mammogram in 1 year Nystatin cream under right breast CC: Dr. Healy
== END ==
LOC: WWCWWP 13:22
PROVIDERS: ATTEND Surgery
DX: N64.89 Other specified disorders of breast (principal); I10 Essential (primary) hypertension; J44.9 Chronic obstructive pulmonary disease, unspecified; Z85.3 Personal history of malignant neoplasm of breast; Z92.3 Personal history of irradiation; Z92.21 Personal history of antineoplastic chemotherapy; Z98.890 Other specified postprocedural states; Z79.811 Long term (current) use of aromatase inhibitors; Z87.891 Personal history of nicotine dependence; Z88.1 Allergy status to other antibiotic agents; Z91.09 Other allergy status, other than to drugs and biological substances

== ENCOUNTER 2021-06-06 06:51 | Day surgery (SDC) | payer MEDICARE, BC ==
[2021-06-01 16:09] VITALS: BMI 33.5
[~2021-06-06 06:51] MED LIST changes: -ACETAMINOPHEN TAB 500 MG TAB PO PRN; -DEXAMETHASONE SOD PHOSPHATE 4 MG/ML 1 ML VIAL IV ONE; +LACTATED RINGERS 1,000 ML IV SCH; -LIDOCAINE 1% (10MG/ML) FOR IV START INTRADERMA PRN; -MELOXICAM 7.5 MG TAB PO PRN; -ONDANSETRON 4 MG/2 ML VIAL IVP ONE; -TRANEXAMIC ACID 1,000 MG in SODIUM CHLORIDE 0.9% 100 ML IVPB PRN
[2021-06-06 07:37] VITALS: TEMP 96.8
[2021-06-06] MEDS ORDERED: PROPOFOL 10 MG/ML 20 ML VIAL IV ONE (08:02)
[2021-06-06] MEDS ORDERED: LIDOCAINE 1% INJ 10MG/ML (20 ML MDV) ONE (08:02)
--- NOTE | 2021-06-06 08:29 | P.PCN ---
Date of Procedure: 06/06/21 Procedure(s) Performed: BRIEF HISTORY: Patient is a 70-year-old pleasant female scheduled for an elective colonoscopy as a part of evaluation of prior history of colon polyps. Last colonoscopy was 5 years ago. PROCEDURE PERFORMED: Colonoscopy. PREOPERATIVE DIAGNOSIS: History of colon polyps. IV sedation per Anesthesia. PROCEDURE: After informed consent was obtained, the patient, was brought into the endoscopy unit. IV sedation was administered by Anesthesia under continuous monitoring. Digital rectal examination was normal. Initially the Olympus CF-160 flexible video colonoscope was then inserted in the rectum, gradually advanced into the cecum without any difficulty. Careful examination was performed as the scope was gradually being withdrawn. Ileocecal valve and the appendiceal orifice were visualized and appeared normal. Prep was excellent. Mucosa of the cecum, ascending colon, transverse colon, descending colon, sigmoid colon, and rectum appeared normal. Scattered sigmoid diverticulosis. Retroflexion was performed in the rectum and no lesions were seen. The patient tolerated the procedure well. IMPRESSION: Normal-appearing colon from rectum to cecum with no evidence of colorectal neoplasia Scattered sigmoid diverticulosis. RECOMMENDATIONS: Findings of this examination were discussed with the patient as well as her family. She was advised to have a repeat endoscopy in 5 years from now because of the prior history of colon polyps.
[2021-06-06 09:24] VITALS: PULSE 68
[2021-06-06 09:25] VITALS: BP 143/65; RESP 16
== END 2021-06-06 09:28 | disposition home or self-care (01) ==
LOC: ORWHC2ENDO 06:51
PROVIDERS: ATTEND Internal Medicine Gastroenterology
DX: Z12.11 Encounter for screening for malignant neoplasm of colon (principal); Z86.010 Personal history of colon polyps; K57.30 Diverticulosis of large intestine without perforation or abscess without bleeding; J44.9 Chronic obstructive pulmonary disease, unspecified; E11.9 Type 2 diabetes mellitus without complications; Z79.1 Long term (current) use of non-steroidal anti-inflammatories (NSAID); Z85.3 Personal history of malignant neoplasm of breast; Z79.51 Long term (current) use of inhaled steroids; Z79.899 Other long term (current) drug therapy; Z88.1 Allergy status to other antibiotic agents
CPT/HCPCS: J2001; J2704; G0105; 45378

== ENCOUNTER → 2022-01-03 | Outpatient (CLI) | payer MEDICARE, BC ==
--- NOTE | 2022-01-03 12:03 | P.SLEEP ---
History of Present Illness DATE: 01/03/2022 CONSULTATION/NEW PATIENT EVALUATION HISTORY OF PRESENT ILLNESS/SLEEP-WAKE EVALUATION: 71year old lady had been evaluated in the sleep center for possible obstructive sleep apnea hypopnea syndrome. Patient has history of mild obstructive sleep apnea-hypopnea syndrome documented in the [facility] about 10 years ago. At that time treatment was not recommended. SLEEP SCHEDULE: Usually sleep schedule on weekdays from 11 PM to 9 AM, during days off[]. FALLING ASLEEP: Patient falls asleep in about 20 minutes, she takes 3 medications to help sleep., Has TV set and bedroom. DURING SLEEP: Patient usually sleeps on the side position with loud snoring and multiple awakenings from sleep usually 3 times with dry mouth and sweating and nocturia. No history of hypnogogical hallucinations, sleep paralysis, or cataplexy. DURING THE DAY/WAKE STATE: Patient has problems with memory and concentration. [place] sleepiness scale is 3. Usually she doesn't take naps. PAST MEDICAL HISTORY: Hypertension, left breast see, Covid 19. PAST SURGICAL HISTORY: Bilateral knee replacement, right shoulder replacement, neck fusion. MEDICATIONS: Amlodipine 10 mg once a day, meloxicam 15 mg once a day, Symbicort, Femara, zolpidem 10 mg at bedtime, melatonin 10 mg, aspirin 81 mg once a day. SOCIAL HISTORY: Positive history of smoking for about 40 pack years quit in 2014 , alcohol consumption none. FAMILY HISTORY: Hypertension, arthritis, during the sleep. REVIEW OF SYSTEMS: Loud snoring, multiple awakenings from sleep. No fevers. No double vision. No recent chest pain. No shortness of breath. No abdominal pain. No bleeding episodes. No blood in urine. No seizure episodes. PHYSICAL EXAMINATION: GENERAL: A pleasant patient without any distress. VITAL SIGNS: BP 153/71 , HR 80 , RR 16 , weight 213 pounds, height 5 foot 6 inches, body mass index 34.3 . HEENT: PERRLA, EOMI. Evaluation of oropharynx showed tongue protrudes midline, low position of soft palate Mallampati 4. NECK: Supple. No JVD. Thyroid is not palpable. 16.5 inches in circumference. LUNGS: Clear to percussion and to auscultation. Good air exchange. No wheezing or rhonchi. HEART: S1, S2 regular. No murmurs, gallops or rubs. ABDOMEN: Soft and nontender. Bowel sounds are present. No organomegaly appreciated. EXTREMITIES: No clubbing or cyanosis. COMPUTER SYSTEMS TECHNOLOGY INSTRUCTOR: Awake, alert, and oriented x3. Cranial nerves 2 to 7 intact. There is no fasciculation or atrophy noted. No focal deficits observed. ASSESSMENT: 1. Loud snoring, multiple awakenings from sleep, extremely low position of soft palate Mallampati 4, wide neck 16.5 inches in circumference. Obstructive sleep apnea hypopnea syndrome. 2. Obesity BMI 34.3. 3 hypertension. 4. History of left breast see treated by lumpectomy, radiation and chemotherapy in 2020. 5 status post Covid 19. 6. Status post bilateral knee replacement. 7. Status post right shoulder replacement. 8. Status post neck fusion surgery. PLAN: 1. Polysomnography for evaluation of patient's breathing during sleep. 2. CPAP/BiPAP titration if sleep study confirms obstructive sleep apnea- hypopnea syndrome. 3. Preferable position during sleep on the side. 4. No driving if patient feels any sleepiness. Patient is aware of civil and criminal liability for unsafe driving. 5. Sleep hygiene with regular sleep time for at least 7.5-8 hours. 6. Watching and losing weight. Thank you very much for referring this patient for consultation. Sincerely, Carlos Betancourt MD, PhD, FAASM. Diplomat of [place] [employer], Sleep Medicine Board by [place] [employer] [place] [employer] [facility] Past Medical History Past Medical History: Cancer, COPD, Hypertension, Osteoarthritis (OA) Additional Past Medical History / Comment(s): HX DIVERTICULOSIS AND COLITIS, DDD, leukemia dx. 2 1/2 yrs. ago-Dr. Hartmann monitors but has had no chemo/radiation, had Covid in 2019, dx. breast cancer 2020-had surg, chemo & radiation History of Any Multi-Drug Resistant Organisms: None Reported Past Surgical History: Appendectomy, Hernia Repair, Hysterectomy, Joint Replacement, Tonsillectomy, Tubal Ligation Additional Past Surgical History / Comment(s): UMB. HERNIA WITH MESH., AYAN KNEE REPLACEMENTS, AYAN CATARACTS, egd, cervical fusion, left breast lumpectomy Past Anesthesia/Blood Transfusion Reactions: No Reported Reaction Past Psychological History: No Psychological Hx Reported Smoking Status: Former smoker, Never smoker Past Alcohol Use History: None Reported Additional Past Alcohol Use History / Comment(s): quit smoking 4 yrs. ago, smoked on and off since age 18 Past Drug Use History: None Reported - Past Family History Mother Family Medical History: Cancer Additional Family Medical History / Comment(s): Brain CA Father Family Medical History: COPD, CVA/TIA, Hyperlipidemia, Hypertension, Myocardial Infarction ([place]) Medications and Allergies Home Medications Medication Instructions Recorded Confirmed Type Indapamide [Lozol] 2.5 mg PO DAILY 06/05/16 11/02/21 History Zolpidem [Ambien] 10 mg PO HS 06/05/16 11/02/21 History Budesonide-Formot 160-4.5 Mcg 2 puff INHALATION BID 30 Days #1 06/20/17 11/02/21 Rx [Symbicort 160-4.5 Mcg Inhaler] inhaler Meloxicam [Mobic] 15 mg PO HS 03/01/20 11/02/21 History amLODIPine [Norvasc] 10 mg PO DAILY 03/01/20 11/02/21 History Letrozole [Femara] 2.5 mg PO DAILY 12/29/20 11/02/21 History Melatonin [Melatonin Disolving] 10 mg PO HS 12/29/20 11/02/21 History Aspirin 81 mg PO DAILY 06/01/21 11/02/21 History Cholecalciferol [Vitamin D3 (25 50 mcg PO DAILY 06/01/21 11/02/21 History Mcg = 1000 Iu)] Magnesium Oxide [Mag-Ox] 400 mg PO DAILY 06/01/21 11/02/21 History Allergies Allergy/AdvReac Type Severity Reaction Status Date / Time perfume Allergy Unknown Dyspnea Verified 11/02/21 13:21 nitrofurantoin Allergy Itching Verified 11/02/21 13:21 [From Macrobid] Sleep Note - Sleep Note Sleep Note: Temperature: Pulse Rate: Respiratory Rate: Blood Pressure: SpO2: Height: Weight: BMI: Neck Circumference:
== END ==
LOC: SLEEP 11:19
PROVIDERS: ATTEND Internal Medicine
DX: G47.33 Obstructive sleep apnea (adult) (pediatric) (principal); E66.9 Obesity, unspecified; Z68.34 Body mass index [BMI] 34.0-34.9, adult; Z86.16 Personal history of COVID-19; Z92.21 Personal history of antineoplastic chemotherapy; Z92.3 Personal history of irradiation; Z90.12 Acquired absence of left breast and nipple; Z96.653 Presence of artificial knee joint, bilateral; Z96.611 Presence of right artificial shoulder joint; Z98.890 Other specified postprocedural states
CPT/HCPCS: 99211

== ENCOUNTER → 2022-03-28 | Outpatient (CLI) | payer MEDICARE, BC ==
--- NOTE | 2022-03-28 11:51 | MM ---
Reason for Exam: Additional evaluation requested from prior study. Last screening mammogram was performed 12 month(s) ago. Patient History: Menarche at age 10. First Full-Term at age 20. Hysterectomy at age 37. Postmenopausal. Other cancer, age 66. Breast cancer, left, age 69. 2009, Benign Stereotactic Core Biopsy on the left side. 03/29/2020, Lumpectomy on the Left side. Malignant Core Biopsy. 03/07/2020, Malignant Core Biopsy on the left side. 09/2020, Chemotherapy. 09/2020, Radiation Therapy. Maternal cousin had breast cancer. Sister had breast cancer, age 60. Prior Study Comparison: 08/11/2015 Screening Mammogram, Unknown. 02/24/2017 Screening Mammogram, Unknown. 02/25/2018 Bilateral Screening Mammogram, [facility]. 09/09/2019 Bilateral Screening Mammogram, [facility]. 03/01/2020 Left Diagnostic Mammogram, [facility]. 03/01/2020 Left Diagnostic Ultrasound, [facility]. 03/07/2020 Left Diagnostic Mammogram, [facility]. 03/29/2020 Left Diagnostic Mammogram, [facility]. 10/16/2020 Right Diagnostic Mammogram, [facility]. 03/26/2021 Bilateral Diagnostic Mammogram, [facility]. Tissue Density: The breast tissue is heterogeneously dense. This may lower the sensitivity of mammography. Findings: Analyzed By CAD. Pattern appears stable. The left breast is smaller on the right. Postsurgical changes are within the left breast. There is diffuse thickening through the skin. Multiple benign appearing calcifications are present. Overall Assessment: Benign, BI-RAD 2 Management: Diagnostic Mammogram of both breasts in 1 year. A clinical breast exam by your physician is recommended on an annual basis and results should be correlated with mammographic findings. This exam should not preclude additional follow-up of suspicious palpable abnormalities. Results were given to the patient verbally at the time of exam. Electronically signed and approved by: Harmeet Schrader D.O. Radiologis
== END | disposition home or self-care (01) ==
LOC: RADMAMWWP 10:46
PROVIDERS: ATTEND Surgery
DX: Z85.3 Personal history of malignant neoplasm of breast (principal); Z78.0 Asymptomatic menopausal state; Z80.3 Family history of malignant neoplasm of breast
CPT/HCPCS: 77066; G0279; 77062

== ENCOUNTER → 2022-09-23 | Outpatient (CLI) | payer MEDICARE, BC ==
--- NOTE | 2022-09-24 19:18 | BD ---
EXAMINATION TYPE: Axial Bone Density DATE OF EXAM: 09/23/2022 CLINICAL HISTORY: 72 years old Female. ICD-10 CODE: M85.88 DISRD OF BONE Height: 64.7 in Weight: 208 lbs RISK FACTORS HISTORY OF: Active: yes Postmenopausal woman: age 43 Frequent falls: pt has fallen 3 times in the last year due to balance issues/tripping MEDICATIONS: Additional Medications: vit d3, letrozole, sleeping meds, meloxicam, zinc, amlodipine, blood pressure meds, water pill, magnesium, 81 mg aspirin,inhaler for asthma Additional History: pt had breast cancer with chemo and radiation EXAM MEASUREMENTS: Bone mineral densitometry was performed using the Parents R People System. Bone mineral density as measured about the Lumbar spine is: ----- L1-L4(G/cm2): 1.553 T Score Values are as follows: ----- L1: 1.3 ----- L2: 1.6 ----- L3: 4.1 ----- L4: 5.4 ----- L1-L4: 3.1 Z Score Values are as follows: ----- L1: 2.1 ----- L2: 2.3 ----- L3: 4.9 ----- L4: 6.1 ----- L1-L4: 3.9 Bone mineral density has: Decreased -2.1% since study of: 09/21/2020 Bone mineral density about the R hip (g/cm2): 1.073 Bone mineral density about the L hip (g/cm2): 1.086 T Score values are as follows: -----R Neck: 0.4 -----L Neck: 0.6 -----R Total: 0.5 -----L Total: 0.6 Z Score values are as follows: -----R Neck: 1.6 -----L Neck: 1.9 -----R Total: 1.5 -----L Total: 1.6 Bone mineral density has: Decreased -8.5% since study of: 09/21/2020 FRAX%s: The graph provided illustrates a 10.0% chance for a major osteoporotic fx and a 0.5% chance f or the hips probability for fx in 10 years time. IMPRESSION: Normal (Values between +1 and -1 indicate normal bone mass). Consider repeating this study in 5 year s or sooner if there is some new clinical indication. NOTE: T-SCORE=SD OF THE YOUNG ADULT MEAN.
== END | disposition home or self-care (01) ==
LOC: RADBDWWP 13:12
PROVIDERS: ATTEND Internal Medicine Hematology & Oncology
DX: C50.519 Malignant neoplasm of lower-outer quadrant of unspecified female breast (principal); C91.10 Chronic lymphocytic leukemia of B-cell type not having achieved remission; M85.88 Other specified disorders of bone density and structure, other site; I10 Essential (primary) hypertension; Z71.3 Dietary counseling and surveillance
CPT/HCPCS: 77080

== ENCOUNTER 2022-10-29 19:46 | Outpatient (CLI) | payer MEDICARE, BC ==
--- NOTE | 2022-11-07 13:56 | P.PCN ---
Description of Procedure: POLYSOMNOGRAPHY REPORT PROCEDURE(S)/DATE(S): Polysomnography 6 10/29/2022 CLINICAL: Patient has been seen in the sleep center for evaluation of obstructive sleep apnea-hypopnea syndrome. Please see my consultation. Sleep study has been done for evaluation of patient breathing during the sleep. PROCEDURE: The standard montage for clinical polysomnography included the electroencephalogram, the electrooculogram, the mentalis surface electromyography and Lead II cardiography. The respiratory battery consisted of measurements of nasal/buccal air flow, pressure transducer measurements from nose, thoracic and/or abdominal effort and intercostal surface electromyography. Video monitoring has been done to check for any parasomnia events. Nocturnal oxyhemoglobin saturations were obtained by finger oximetry. Step-hernandez titration with positive airway pressure was utilized to control the respiratory events, if necessary. RESULTS: During the diagnostic sleep study sleep efficiency was extremely short 65.5 %. Latency to sleep onset was short 6.0 min. Sleep architecture showed stage NI was increased to 9.6 %, Delta sleep was decreased to 3.7 %, REM sleep was borderline 19.7 %. Respiratory channel showed 6 obstructive apneas, 1 mixed apneas, 0 central apneas, 81 hypopneas with lowest oxygen level 79 %. Total apnea hypopnea index was 19.8. Heart rate was in the range between 66 and 74, average 70 by computer calculation. EMG showed 19.1 periodic limb movements per hour with 1.6 micro-arousals per hour. IMPRESSIONS: 1. Moderate obstructive sleep apnea hypopnea syndrome. 2. Mild periodic limb movements have been documented. Please see other impressions from consultation PLAN: 1. The patient will have PAP titration for correction of respiratory abnormalities during the sleep. 2. Losing weight program. 3. Sleep hygiene with regular time in bed for at least 7-1/2 hours. 4. No driving if feeling sleepiness. 5. Please check iron profile including ferritin level. Low level of iron may increase the risk for periodic limb movements. Thank you very much for allowing me to participate in the management of your patient. Sincerely, Carlos Betancourt MD, PhD, FAASM. Diplomat of [place] [employer], Sleep Medicine Board by [place] [employer] Psychiatric Registered Nurse of [facility]
== END 2022-10-30 06:00 | disposition home or self-care (01) ==
LOC: 3 N SLEEP 19:46
PROVIDERS: ATTEND Internal Medicine
DX: G47.33 Obstructive sleep apnea (adult) (pediatric) (principal); Z88.8 Allergy status to other drugs, medicaments and biological substances; Z79.82 Long term (current) use of aspirin; Z87.891 Personal history of nicotine dependence
CPT/HCPCS: 95810

== ENCOUNTER 2022-11-09 10:23 | Observation (INO) | payer MEDICARE, BC ==
[2022-11-09 10:35] LABS: Glucose,Whole Blood 107 mg/dL (70-110)
[2022-11-09] MEDS ORDERED: SODIUM CHLORIDE 0.9% 500 ML 500 ML IV STA (10:52)
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
[2022-11-09 11:12] LABS: Basophils % (A) 0 %; Eosinophils # (A) 0.4 k/uL (0-0.7); Eosinophils % (A) 3 %; HCT 43.9 % (34.0-46.0); HGB 14.1 gm/dL (11.4-16.0); Lymphocytes # (A) 2.7 k/uL (1.0-4.8); Lymphocytes % (A) 22 %; MCH 30.3 pg (25.0-35.0); MCHC 32.2 g/dL (31.0-37.0); MCV 94.2 fL (80.0-100.0); Mean Platelet Volume 7.4; Monocytes # (A) 0.6 k/uL (0-1.0); Monocytes % (A) 5 %; Neutrophils # (A) 8.5 k/uL (1.3-7.7); Neutrophils % (A) 69 %; Platelet Count 301 k/uL (150-450); RBC 4.66 m/uL (3.80-5.40); RDW 12.9 % (11.5-15.5); WBC 12.3 k/uL (3.8-10.6)
--- NOTE | 2022-11-09 11:15 | CT ---
EXAMINATION TYPE: CT brain wo con CT DLP: 1100 mGycm, Automated exposure control for dose reduction was used. DATE OF EXAM: 11/09/2022 11:11 AM COMPARISON: None. CLINICAL INDICATION:Female, 72 years old with history of Double vision, Double vision TECHNIQUE: Brain: Multiple axial CT images of the brain were obtained without IV contrast. Coronal and sagittal reformats reviewed. FINDINGS: Brain: Extra-axial spaces: No abnormal extra-axial fluid collections. Ventricular system: Within normal limits Cerebral parenchyma: No acute intraparenchymal hemorrhage or mass effect. The de la rosa-white junction is well differentiated. Scattered hypoattenuating areas are seen within the white matter. Cerebellum: Unremarkable. Mass effect: No evidence of midline shift. Intracranial vasculature: Atherosclerotic calcifications of the intracranial vessels. Soft tissues: Normal. Calvarium/osseous structures: No depressed skull fracture. Benign hyperostosis frontalis noted. Paranasal sinuses and mastoid air cells: Clear Visualized orbits: Bilateral aphakia IMPRESSION: 1. No acute intracranial process. 2. Nonspecific white matter changes, likely secondary to chronic small vessel ischemic disease.
--- NOTE | 2022-11-09 11:17 | XR ---
EXAMINATION TYPE: XR chest 2V DATE OF EXAM: 11/09/2022 11:14 AM COMPARISON: Chest radiographs from 02/22/2022 TECHNIQUE: XR chest 2V Frontal and lateral views of the chest. CLINICAL INDICATION:Female, 72 years old with history of Chest Pain; FINDINGS: Lungs/Pleura: There is no evidence of pleural effusion, focal consolidation, or pneumothorax. Chroni c senescent parenchymal change. Pulmonary vascularity: Unremarkable. Heart/mediastinum: Cardiomediastinal silhouette is unremarkable. Musculoskeletal: No acute osseous pathology. Right shoulder prosthesis. Left shoulder arthropathy. Ce rvical fusion hardware. Degenerative changes of the spine. IMPRESSION: No acute cardiopulmonary disease/process.
[2022-11-09 11:23] LABS: ALT 30 U/L (4-34); AST 29 U/L (14-36); African American GFR (CKD) >90 (>60 ml/min/1.73 sqM); Alkaline Phosphatase 103 U/L (38-126); Anion Gap 9 mmol/L; Blood Urea Nitrogen 23 mg/dL (7-17); Calcium 9.3 mg/dL (8.4-10.2); Carbon Dioxide 26 mmol/L (22-30); Chloride 102 mmol/L (98-107); Glucose 111 mg/dL (74-99); Magnesium 2.1 mg/dL (1.6-2.3); Non-African American GFR(CKD) >90 (>60 ml/min/1.73 sqM); Potassium 3.8 mmol/L (3.5-5.1); Sodium 137 mmol/L (137-145); Total Bilirubin 0.6 mg/dL (0.2-1.3); Total Protein 7.2 g/dL (6.3-8.2)
[2022-11-09 11:28] LABS: Partial Thromboplastin Time 24.9 sec (22.0-30.0); Prothrombin Time 10.5 sec (9.0-12.0)
[2022-11-09] MEDS ORDERED: SODIUM CHLORIDE 0.9% 1,000 ML IV ONE (14:28)
[2022-11-09] MEDS ORDERED: NALOXONE 0.4 MG/ML 1 ML VIAL IVP PRN (17:58)
[2022-11-09] MEDS ORDERED: ONDANSETRON 4 MG/2 ML VIAL IVP PRN (17:58)
[2022-11-09] MEDS ORDERED: MELATONIN 3 MG TABLET PO PRN (17:58)
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
[2022-11-09] MEDS: SODIUM CHLORIDE 0.9% 1,000 ML IV SCH (18:15)
[2022-11-09] MEDS: SYMBICORT 160-4.5 MCG INHALER INHALATION SCH (19:49)
[2022-11-09] MEDS: MELATONIN 5 MG TABLET PO SCH (20:27)
[2022-11-09] MEDS: MELOXICAM 7.5 MG TAB PO SCH (20:28)
[2022-11-09] MEDS: ACETAMINOPHEN TAB 325 MG TAB PO PRN (20:28)
[2022-11-09] MEDS ORDERED: ZOLPIDEM 5 MG TAB PO SCH (21:45)
[2022-11-10] MEDS: SODIUM CHLORIDE 0.9% 1,000 ML IV SCH ×2 (06:26→20:32)
[2022-11-10 06:50] LABS: Basophils # (A) 0.1 k/uL (0-0.2); Basophils % (A) 1 %; Eosinophils # (A) 0.3 k/uL (0-0.7); Eosinophils % (A) 3 %; HGB 13.1 gm/dL (11.4-16.0); Lymphocytes # (A) 2.4 k/uL (1.0-4.8); Lymphocytes % (A) 23 %; MCH 30.5 pg (25.0-35.0); MCHC 31.9 g/dL (31.0-37.0); MCV 95.6 fL (80.0-100.0); Mean Platelet Volume 7.7; Monocytes # (A) 0.5 k/uL (0-1.0); Monocytes % (A) 5 %; Neutrophils # (A) 7.1 k/uL (1.3-7.7); Neutrophils % (A) 68 %; Platelet Count 296 k/uL (150-450); RBC 4.29 m/uL (3.80-5.40); RDW 12.8 % (11.5-15.5); WBC 10.4 k/uL (3.8-10.6)
[2022-11-10 07:00] LABS: African American GFR (CKD) >90 (>60 ml/min/1.73 sqM); Anion Gap 4 mmol/L; Blood Urea Nitrogen 16 mg/dL (7-17); Calcium 9.1 mg/dL (8.4-10.2); Carbon Dioxide 28 mmol/L (22-30); Chloride 105 mmol/L (98-107); Glucose 104 mg/dL (74-99); Magnesium 2.1 mg/dL (1.6-2.3); Non-African American GFR(CKD) >90 (>60 ml/min/1.73 sqM); Sodium 137 mmol/L (137-145)
[2022-11-10 07:01] LABS: Potassium 4.2 mmol/L (3.5-5.1)
[2022-11-10] MEDS: SYMBICORT 160-4.5 MCG INHALER INHALATION SCH ×2 (08:08→19:56)
[2022-11-10] MEDS: ZINC SULFATE 220 MG CAP PO SCH (08:13)
[2022-11-10] MEDS: ASPIRIN 81 MG PO SCH (08:13)
[2022-11-10] MEDS: amLODIPine 10 MG TAB PO SCH (08:13)
[2022-11-10] MEDS: hydroCHLOROthiazide 25 MG TAB PO SCH (08:14)
[2022-11-10] MEDS: LETROZOLE 2.5 MG TAB PO SCH (08:14)
--- NOTE | 2022-11-10 10:02 | CT ---
EXAMINATION TYPE: CT angio head neck CT DLP: 334.60 mGycm, Automated exposure control for dose reduction was used. DATE OF EXAM: 11/10/2022 9:45 AM COMPARISON: CT brain 11/09/2022. CLINICAL INDICATION:Female, 72 years old with history of dizziness, double vision; PHH, Dizziness, do uble vision TECHNIQUE: Axially acquired helical CT angiogram of the head and neck was obtained with contrast util izing 65 cc of Isovue-370 administered intravenously. NASCET criteria used. FINDINGS: CTA HEAD: No evidence of acute intracranial hemorrhage, mass effect, or midline shift. The ventricles, sulci, a nd cisterns are unremarkable. The visualized portions of the internal carotid arteries, middle cerebral arteries, anterior cerebral arteries, and posterior cerebral arteries are patent. The basilar and vertebral arteries are patent. Dominant left vertebral artery. CTA NECK: Right Carotid System: The common carotid artery and external carotid artery are patent. Medial deviation of the internal ca rotid artery. Mild calcified plaque at the carotid bulb. The carotid bifurcation demonstrates no evid ence of hemodynamically significant stenosis. The remaining portions of the internal carotid artery d emonstrate normal size without significant narrowing. Left Carotid System: The common carotid artery and external carotid artery are patent. Mild calcified plaque at the caroti d bulb. The carotid bifurcation demonstrates no evidence of hemodynamically significant stenosis. The remaining portions of the internal carotid artery demonstrate normal size without significant narrow ing. Vertebral arteries are patent without evidence hemodynamically significant stenosis. There is a three-vessel aortic arch. Atherosclerotic calcification of the aorta and its branches. The origins of the great vessels are patent. No evidence of hemodynamically significant stenosis. Anterior cervical fusion hardware. Bilateral aphakia. IMPRESSION: 1. No evidence of dissection of the cervical internal carotid arteries or vertebral arteries or any e vidence of significant stenosis at the carotid bifurcations. 2. No evidence of high-grade stenosis or intracranial aneurysm.
[2022-11-10] MEDS: ACETAMINOPHEN TAB 325 MG TAB PO PRN (14:42)
--- NOTE | 2022-11-10 18:28 | P.PN ---
Subjective Progress Note Date: 11/10/22 Patient is a 72-year-old female with hypertension, COPD, leukemia, and osteoarthritis who presented to the hospital with complaints of sudden onset double vision. In the ER she underwent an extensive evaluation. On arrival her vital signs were within normal limits. Laboratory analysis was remarkable for white blood cell count 12.3 (at patient's baseline), BUN 23, glucose 111. CT br ain showed no acute process with nonspecific white matter changes. Chest x-ray showed no acute cardiopulmonary disease. EKG is reviewed by myself revealed sinus bradycardia with a rate of [address]-T wave changes. Patient was placed in observation for further monitoring. Tele monitoring and orthostatic vital signs negative. Patient seen and examined at bedside. She is unsure she still feeling dizzy but does feel may be slightly off. No additional blurry/double vision, no chest pain, no shortness of breath. Vital signs reviewed General: nontoxic, no distress, appears at stated age Cardiovascular: S1S2 reg, no murmur, positive posterior tibial pulse bilateral, Lungs: CTA bilateral, no rhonchi, no rales , no accessory muscle use Abdominal: soft, nontender to palpation, no guarding, no appreciable organomegaly Ext: no gross muscle atrophy, no edema b/l lower extremities, no contractures Neuro: CN II-XI grossly intact, no focal neuro deficits Psych: Alert, oriented, appropriate affect Assessment/Plan: Acute onset diplopia, disequilibrium intermittent palpitations- tele unremarkable - differential includes BPPV, Arrhythmia, Orthostatic hypotension, less likely TIA - orthostatics negative, tele unremarkable - + Chesterton-Hallpike right on 11/09/22 - CTA head and neck negative to rule out vertebral basilar insufficiency - Await neurology recs - tele, fall precautions - TSH with in bhavik -AVOID Ambien GIVEN SYMPTOMS, discontinued again - following outpatient with PMR due to disequilibrium and had recent EMG HTN - norvasc 10 mg daily, COPD without exacerbation - symbicort 2 puffs BID Imaging: CTA head and neck ordered and reviewed-no evidence of dissection of the internal carotid arteries or vertebral arteries, no evidence of significant stenosis at the carotid bifurcation, no evidence of high-grade stenosis or intracranial aneurysm Data Review: Orthostatics reviewed and negative as they dropped from supine to standing was less than 10 systolic. Patient has been afebrile. Pulse 64, respirations 14 DVT prophylaxis: Early ambulation Anticipated discharge date: Pending Clinical course Anticipated discharge place: Pending Clinical course This dictation was prepared using [employer] voice recognition software. Though every attempt is made to correct errors during dictation some may still exist. Objective - Vital Signs Vital signs: Vital Signs Temp 97.8 F 11/10/22 15:00 Pulse 67 11/10/22 15:00 Resp 15 11/10/22 15:00 BP 118/68 11/10/22 15:00 Pulse Ox 95 11/10/22 15:00 FiO2 Intake & Output 11/09/22 11/10/22 11/10/22 18:59 06:59 18:59 Intake Total 118 236 Balance 118 236 Weight 93.894 kg Intake: Oral 118 236 Other: Voiding Method Toilet Toilet Toilet # Voids 1 2 # Bowel Movements 0 - Labs CBC & Chem 7: 11/10/22 06:10 11/10/22 06:10 Labs: Abnormal Lab Results - Last 24 Hours (Table) 11/10/22 Range/Units 06:10 Glucose 104 H (74-99) mg/dL
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
[2022-11-10] MEDS: FOLIC ACID 1 MG TAB PO SCH (20:29)
[2022-11-10] MEDS: MELATONIN 5 MG TABLET PO SCH (20:30)
[2022-11-10] MEDS: MELOXICAM 7.5 MG TAB PO SCH (20:30)
[2022-11-11] MEDS: LETROZOLE 2.5 MG TAB PO SCH (08:20)
[2022-11-11] MEDS: ASPIRIN 81 MG PO SCH (08:20)
[2022-11-11] MEDS: SODIUM CHLORIDE 0.9% 1,000 ML IV SCH (08:21)
[2022-11-11] MEDS: ZINC SULFATE 220 MG CAP PO SCH (08:21)
[2022-11-11] MEDS: amLODIPine 10 MG TAB PO SCH (08:21)
[2022-11-11] MEDS: hydroCHLOROthiazide 25 MG TAB PO SCH (08:21)
[2022-11-11] MEDS: FOLIC ACID 1 MG TAB PO SCH (08:21)
[2022-11-11] MEDS: SYMBICORT 160-4.5 MCG INHALER INHALATION SCH ×2 (08:22→20:41)
--- NOTE | 2022-11-11 11:53 | P.PN ---
Subjective Progress Note Date: 11/11/22 Patient is a 72-year-old female with hypertension, COPD, leukemia, and osteoarthritis who presented to the hospital with complaints of sudden onset double vision. In the ER she underwent an extensive evaluation. On arrival her vital signs were within normal limits. Laboratory analysis was remarkable for white blood cell count 12.3 (at patient's baseline), BUN 23, glucose 111. CT br ain showed no acute process with nonspecific white matter changes. Chest x-ray showed no acute cardiopulmonary disease. EKG is reviewed by myself revealed sinus bradycardia with a rate of [address]-T wave changes. Patient was placed in observation for further monitoring. Tele monitoring and orthostatic vital signs negative. Patient seen and examined at bedside. She denies any additional double vision or blurry vision. Today she has now denying disequilibrium and is upset that she didn't get her Ambien. Earlier yesterday she said she still feels lightly off balance and that point we held the Ambien. She is on understanding and will see how she does walking today and determine if she still feels slightly off balance. We also discussed that Ambien may not be the best medication to continue on long-term for her sleep disturbances. It sounds as if though she wakes up multiple times a night despite Ambien use. Vital signs reviewed General: nontoxic, no distress, appears at stated age Cardiovascular: S1S2 reg, no murmur, positive posterior tibial pulse bilateral, Lungs: CTA bilateral, no rhonchi, no rales , no accessory muscle use Abdominal: soft, nontender to palpation, no guarding, no appreciable organomegaly Ext: no gross muscle atrophy, no edema b/l lower extremities, no contractures Neuro: CN II-XI grossly intact, no focal neuro deficits Psych: Alert, oriented, appropriate affect Assessment/Plan: Acute onset diplopia, disequilibrium intermittent palpitations- tele unremarkable -Neurology note reviewed: Await EEG, MRI, and echocardiogram -Add Lipitor 40 -Check cholesterol profile -Check B12 - differential includes BPPV, Arrhythmia, Orthostatic hypotension, less likely TIA - orthostatics negative, tele unremarkable - + Sanjeev-Hallpike right on 11/09/22 - CTA head and neck negative to rule out vertebral basilar insufficiency - tele, fall precautions - TSH with in normal - patient to walk and let nursing know if having imbalance to see if holding ambien improved her coordination - following outpatient with PMR due to disequilibrium and had recent EMG HTN - norvasc 10 mg daily, COPD without exacerbation - symbicort 2 puffs BID Imaging: CTA head and neck ordered and reviewed-no evidence of dissection of the internal carotid arteries or vertebral arteries, no evidence of significant stenosis at the carotid bifurcation, no evidence of high-grade stenosis or intracranial aneurysm Data Review: Vitals reviewed patient afebrile for the last 24 hours, pulse 67, respiration 16, blood pressure 156/72, O2 sat 96% on room air no new labs for review DVT prophylaxis: Early ambulation Anticipated discharge date: Pending Clinical course Anticipated discharge place: Pending Clinical course This dictation was prepared using [employer] voice recognition software. Though every attempt is made to correct errors during dictation some may still exist. Objective - Vital Signs Vital signs: Vital Signs Temp 98.0 F 11/11/22 07:00 Pulse 67 11/11/22 07:00 Resp 16 11/11/22 07:00 BP 156/72 11/11/22 07:00 Pulse Ox 96 11/11/22 07:00 FiO2 Intake & Output 11/10/22 11/11/22 11/11/22 18:59 06:59 18:59 Intake Total 354 414 Balance 354 414 Intake: Oral 354 414 Other: Voiding Method Toilet Toilet # Voids 2 1 # Bowel Movements 0 - Labs CBC & Chem 7: 11/10/22 06:10 11/10/22 06:10
[2022-11-11] MEDS: ACETAMINOPHEN TAB 325 MG TAB PO PRN (13:17)
--- NOTE | 2022-11-11 14:38 | P.PN ---
Subjective Progress Note Date: 11/11/22 Patient was seen for a follow-up. Patient is sitting comfortably in the recliner. No further episodes of dizziness, diplopia or syncope. Primary physician has stopped Ambien, as she has been on this medication for last 15 years. She did not sleep well last night. She does take melatonin. Objective - Vital Signs Vital signs: Vital Signs Temp 98.0 F 11/11/22 07:00 Pulse 67 11/11/22 07:00 Resp 16 11/11/22 07:00 BP 156/72 11/11/22 07:00 Pulse Ox 96 11/11/22 07:00 FiO2 Intake & Output 11/10/22 11/11/22 11/11/22 18:59 06:59 18:59 Intake Total 354 414 Balance 354 414 Intake: Oral 354 414 Other: Voiding Method Toilet Toilet # Voids 2 1 # Bowel Movements 0 - Exam Mental status, speech and language functions, cranial nerves and muscle strength is normal. - Labs CBC & Chem 7: 11/10/22 06:10 11/10/22 06:10 Assessment and Plan Assessment: * Episode of transient diplopia, dizziness and some loss of memory, unclear etiology. Rule out TIA, rule out seizure. * Hypertension * COPD * History of spinal stenosis, status post cervical fusion. * History of breast cancer in March 2020, status post surgery, chemo and radiation. Plan: * Patient needs TIA workup * Await MRI of the brain with and without contrast * 2-D echo rule out embolic source * EEG rule out epileptiform activity * Hemoglobin A1c 6.2 on 10/23/2022 * Lipid panel with cholesterol 207, LDL 112, HDL 53 and triglycerides 206 on 07/12/2022, awaiting repeat lipid panel. Continue Lipitor 40 mg. * Patient has history of folate deficiency with folic acid 4.0. We'll start folic acid 1 mg daily. B12 730 on 02/21/2021. * Continue aspirin for now.
[2022-11-11] MEDS: MELOXICAM 7.5 MG TAB PO SCH (19:55)
[2022-11-11] MEDS: MELATONIN 5 MG TABLET PO SCH (19:56)
[2022-11-11] MEDS ORDERED: ATORVASTATIN 40 MG TAB PO SCH (21:00)
[2022-11-12] MEDS: SODIUM CHLORIDE 0.9% 1,000 ML IV SCH (00:32)
[2022-11-12] MEDS: SYMBICORT 160-4.5 MCG INHALER INHALATION SCH (08:15)
[2022-11-12 08:22] VITALS: BP 124/81; PULSE 71; RESP 16; TEMP 97.8
--- NOTE | 2022-11-12 09:11 | MR ---
EXAMINATION TYPE: MR brain wo/w con DATE OF EXAM: 11/12/2022 7:38 AM CLINICAL INDICATION:Female, 72 years old with history of Diplopia, dizzy, amnesia episode; PHH, Diplo jason, dizziness, amnesia COMPARISON: CT brain 8 11/09/2022 TECHNIQUE: Multi planar, multi sequence imaging was performed through the brain including: T1, T2, In version recovery, susceptibility weighted imaging and gradient echo imaging and Diffusion weighted im aging. The patient was then given intravenous contrast and multi planar, T1 fat-saturation images wer e obtained. IV Contrast: 9 cc Gadavist FINDINGS: The de la rosa-white junctions, ventricular system, basal cisterns appear unremarkable. Diffusion-weighted imaging shows no evidence of restricted diffusion to suggest acute/subacute infarct. Intracranial art erial flow voids are maintained. Midline structures show no abnormality. Scattered foci of high T2 si gnal intensity are seen within the periventricular white matter. The susceptibility weighted images d o not reveal any evidence for micro-hemorrhage. After administration of gadolinium, no abnormal enhan cement is seen. The bone marrow signal is within normal limits. Paranasal sinuses and mastoid air cells: No significant paranasal sinus disease. Visualized orbits: Bilateral aphakia IMPRESSION: 1. No evidence of intracranial mass, acute/subacute infarct, or abnormal enhancement. 2. Nonspecific white matter changes, likely related to small vessel ischemic disease
[2022-11-12] MEDS: ZINC SULFATE 220 MG CAP PO SCH (09:24)
[2022-11-12] MEDS: LETROZOLE 2.5 MG TAB PO SCH (09:24)
[2022-11-12] MEDS: amLODIPine 10 MG TAB PO SCH (09:25)
[2022-11-12] MEDS: FOLIC ACID 1 MG TAB PO SCH (09:25)
[2022-11-12] MEDS: ASPIRIN 81 MG PO SCH (09:25)
[2022-11-12] MEDS: hydroCHLOROthiazide 25 MG TAB PO SCH (09:25)
--- NOTE | 2022-11-12 10:04 | EEG ---
DATE OF SERVICE: 11/11/2022 ELECTROENCEPHALOGRAM REPORT PREAMBLE: This is a 72-year-old female with possible TIA with loss of memory. EEG FINDINGS: This is a 21-channel digital EEG recorded with video component, utilizing 10/20 International System with referential and bipolar montages. Background consists of well developed, well regulated moderate voltage activity in 9 to 10 hertz alpha. Background is posterior dominant and reactive to eye opening and closing. Photic driving response was not seen. Some drowsiness was seen with appearance of bilaterally symmetric theta frequency rhythm. Deeper stages of sleep were not seen. No focal or generalized epileptiform activity was seen. EKG channel showed some arrhythmia. IMPRESSION: This is a normal awake and drowsy EEG. No focal, lateralized, or epileptiform activity was seen. EKG channel showed arrhythmia. Clinical correlation recommended. [place] / VENUS: [id number] / MTDD
[2022-11-12 10:19] LABS: LDL Cholesterol,Calculated 94.2 mg/dL (0.0-131.0)
--- NOTE | 2022-11-12 10:26 | CA ---
Transthoracic Echo Report Name: Ashley Abarca Age: 72 Gender: F : 1950 Exam Date: 11/12/2022 07:48 Exam Location: [facility] Ht (in): 67 Wt (lb): 207 Ordering Physician: Bárbara Jefferson MD Attending/Referring Phys: Mutual Fund Manager Jeanine Sanchez RDCS Procedure CPT: Indications: ?TIA, loss of memory, Dplopia r/o seizure Cardiac Hx: Technical Quality: Technically difficult study Contrast 1: Lumason Total Dose (mL): 3 Contrast 2: Total Dose (mL): MEASUREMENTS (Male / Female) Normal Values 2D ECHO LV Diastolic Diameter PLAX 4.4 cm 4.2 - 5.9 / 3.9 - 5.3 cm LV Systolic Diameter PLAX 3.1 cm IVS Diastolic Thickness 1.2 cm 0.6 - 1.0 / 0.6 - 0.9 cm LVPW Diastolic Thickness 1.3 cm 0.6 - 1.0 / 0.6 - 0.9 cm LV Relative Wall Thickness 0.6 RV Internal Dim ED PLAX 3.3 cm LA Systolic Diameter LX 3.5 cm 3.0 - 4.0 / 2.7 - 3.8 cm LV Diastolic Volume MOD BP 63.6 cm??? 67 - 155 / 56 - 104 cm??? LV Systolic Volume MOD BP 34.3 cm??? 22 - 58 / 19 - 49 cm??? LV Ejection Fraction MOD BP 46.0 % >= 55 % LV Cardiac Index MOD BP 821.8 cm???/min???m??? LV Diastolic Volume MOD 4C 62.0 cm??? LV Systolic Volume MOD 4C 31.7 cm??? LV Ejection Fraction MOD 4C 48.9 % LV Cardiac Index MOD 4C 850.6 cm???/min???m??? LV Diastolic Length 4C 7.0 cm LV Systolic Length 4C 7.0 cm LV Diastolic Volume MOD 2C 61.4 cm??? LV Systolic Volume MOD 2C 33.8 cm??? LV Ejection Fraction MOD 2C 45.0 % LV Cardiac Index MOD 2C 775.1 cm???/min???m??? LV Diastolic Length 2C 6.5 cm LV Systolic Length 2C 5.9 cm M-MODE Aortic Root Diameter MM 3.6 cm MV E Point Septal Separation 0.8 cm AV Cusp Separation MM 2.2 cm DOPPLER AV Peak Velocity 80.1 cm/s AV Peak Gradient 2.6 mmHg MV Area PHT 5.9 cm??? Mitral E Point Velocity 64.5 cm/s Mitral A Point Velocity 56.0 cm/s Mitral E to A Ratio 1.2 MV Deceleration Time 128.3 ms FINDINGS Left Ventricle Left ventricular ejection fraction is estimated at 50-55 %. Left ventricular cavity size normal. Mildly increased septal wall thickness. Mildly increased posterior wall thickness. Right Ventricle Mild right ventricular dilatation. Unable to estimate the right ventricular systolic pressure. Right Atrium Right atrium not well visualized. Left Atrium Normal left atrial size. Mitral Valve Mitral annular calcification. No mitral stenosis, regurgitation or prolapse. Aortic Valve Trileaflet aortic valve. No aortic valve stenosis or regurgitation. Tricuspid Valve Tricuspid valve not well visualized. Pulmonic Valve Structurally normal pulmonic valve. No pulmonic regurgitation. Pericardium No pericardial effusion. Aorta Normal size aortic root and proximal ascending aorta. CONCLUSIONS Normal LV size and systolic function with LVEF estimated at 55% Mild concentric LVH No significant valvular pathology No prior echo to compare with Previewed by: Dr Schuyler Trujillo (Electronically Signed) Final Date: 12 November 2022 10:24
--- NOTE | 2022-11-12 14:09 | P.PN ---
Subjective Progress Note Date: 11/12/22 Patient was seen for a follow-up. Patient is sitting comfortably in the recliner. No further episodes of dizziness, diplopia or syncope. Primary physician has stopped Ambien, as she has been on this medication for last 15 years, and felt the symptoms could be related to side effect of Ambien. She does take melatonin. Telemetry monitoring showing sinus arrhythmia with occasional junctional beats in the 50s. Objective - Vital Signs Vital signs: Vital Signs Temp 97.8 F 11/12/22 07:00 Pulse 71 11/12/22 07:00 Resp 16 11/12/22 07:00 BP 124/81 11/12/22 07:00 Pulse Ox 97 11/12/22 07:00 FiO2 Intake & Output 11/11/22 11/12/22 11/12/22 18:59 06:59 18:59 Intake Total 532 298 Balance 532 298 Intake: Oral 532 298 Other: Voiding Method Toilet Toilet # Voids 3 2 - Exam Mental status, speech and language functions, cranial nerves and muscle strength is normal. - Labs CBC & Chem 7: 11/10/22 06:10 11/10/22 06:10 Assessment and Plan Assessment: * Episode of transient diplopia, dizziness and some loss of memory, unclear etiology. Rule out TIA. No evidence of seizure. EEG normal. * Hypertension * COPD * History of spinal stenosis, status post cervical fusion. * History of breast cancer in March 2020, status post surgery, chemo and radiation. Plan: * Patient underwent workup for TIA. * MRI of the brain with and without contrast revealed no evidence of intracranial mass, acute/subacute infarct or abnormal enhancement. Nonspecific white matter changes, likely related to small vessel ischemic disease. I personally reviewed MRI, agree with the findings. * 2-D echo revealed normal left ventricular size and systolic function with LVEF estimated at 55%. Mild concentric LVH. No valvular pathology. Left atrial size is normal. * EEG was normal awake and drowsy. No epileptiform activity was seen. Evidence of arrhythmia. Correlate clinically. * Consider Holter monitoring. * Hemoglobin A1c 6.2 on 10/23/2022 * Lipid panel with cholesterol 176, LDL 94, HDL 58 and triglycerides 116. Continue Lipitor 40 mg. * Patient has history of folate deficiency with folic acid 4.0. We'll start folic acid 1 mg daily. B12 730 on 02/21/2021. * Continue aspirin 81 mg daily. * Neurologically clear for discharge.
--- NOTE | 2022-11-12 14:28 | P.DS ---
Providers Date of admission: 11/09/22 14:29 Expected date of discharge: 11/12/22 Attending physician: Preethi Richardson DO Consults: 11/09/22 14:28 Consult Physician Urgent Consulting Provider: Bárbara Jefferson Consult Reason/Comments: Dizziness, diplopia Do you want consulting provider notified?: Yes Primary care physician: Megan Pepe [facility] Course: Discharge Diagnosis: Acute onset diplopia BPPV intermittent palpitations- tele unremarkable HTN COPD without exacerbation Dysequilibrium Hospital Course: Patient is a 72-year-old female with hypertension, COPD, leukemia, and osteoarthritis who presented to the hospital with complaints of sudden onset double vision. In the ER she underwent an extensive evaluation. On arrival her vital signs were within normal limits. Laboratory analysis was remarkable for white blood cell count 12.3 (at patient's baseline), BUN 23, glucose 111. CT brain showed no acute process with nonspecific white matter changes. Chest x- ray showed no acute cardiopulmonary disease. EKG is reviewed by myself revealed sinus bradycardia with a rate of [address]-T wave changes. Patient was placed in observation for further monitoring. Tele monitoring and orthostatic vital signs negative. EEG was without signs of epileptiform activity. MRI showed no acute stroke. Echocardiogram showed a preserved ejection fraction with no significant valvular disease. Her symptoms remained abated and she was determined stable for discharge home. Neurology did review her prior lab results and have suggested full acid on discharge as her folic acid in 2020 was 4. Patient discharged home in stable condition. Patient seen and examined at bedside. No additional symptoms today.We discussed possibly coming off ambien employment attorney and she will speak with Dr. Greene further regarding this. Vital signs reviewed and stable. General: nontoxic, no distress, appears at stated age Cardiovascular: S1S2 reg, no murmur, positive posterior tibial pulse bilateral, Lungs: CTA bilateral, no rhonchi, no rales , no accessory muscle use Ext: no gross muscle atrophy, no edema b/l lower extremities, no contractures Neuro: CN II-XI grossly intact, no focal neuro deficits Psych: Alert, oriented, appropriate affect A total of 27 minutes of time were spent preparing this complex discharge summary. Patient was discharged on 11/12/22. This dictation was prepared using [employer] voice recognition software. Though every attempt is made to correct errors during dictation some may still exist. Plan - Discharge Summary Discharge Rx Participant: No New Discharge Prescriptions: New Folic Acid 1 mg PO DAILY #0 tab Continue Indapamide [Lozol] 2.5 mg PO DAILY amLODIPine [Norvasc] 10 mg PO DAILY Meloxicam [Mobic] 15 mg PO HS Letrozole [Femara] 2.5 mg PO DAILY Magnesium Oxide [Mag-Ox] 400 mg PO DAILY Zinc Gluconate [Zinc] 50 mg PO DAILY Melatonin 10 mg PO HS Aspirin 81 mg PO DAILY Cholecalciferol [Vitamin D3 (125 Mcg = 5000 Iu)] 125 mcg PO DAILY Budesonide-Formot 160-4.5 Mcg [Symbicort 160-4.5 Mcg Inhaler] 2 puff INHALATION RT-BID Discontinued Zolpidem [Ambien] 10 mg PO HS Discharge Medication List Indapamide [Lozol] 2.5 mg PO DAILY 06/05/16 [History] Meloxicam [Mobic] 15 mg PO HS 03/01/20 [History] amLODIPine [Norvasc] 10 mg PO DAILY 03/01/20 [History] Letrozole [Femara] 2.5 mg PO DAILY 12/29/20 [History] Aspirin 81 mg PO DAILY 06/01/21 [History] Magnesium Oxide [Mag-Ox] 400 mg PO DAILY 06/01/21 [History] Budesonide-Formot 160-4.5 Mcg [Symbicort 160-4.5 Mcg Inhaler] 2 puff INHALATION RT-BID 11/09/22 [History] Cholecalciferol [Vitamin D3 (125 Mcg = 5000 Iu)] 125 mcg PO DAILY 11/09/22 [History] Melatonin 10 mg PO HS 11/09/22 [History] Zinc Gluconate [Zinc] 50 mg PO DAILY 11/09/22 [History] Folic Acid 1 mg PO DAILY #0 tab 11/12/22 [Rx] Follow up Appointment(s)/Referral(s): Megan Pepe MD [Primary Care Provider] - 1-2 days Patient Instructions/Handouts: Dizziness (ED) Activity/Diet/Wound Care/Special Instructions: Activity: As tolerated Diet: Heart Healthy diet Special Instructions: Your B12 levels are within normal range. There are some ongoing studies that show promise that taking B12 with drugs like femara can decrease associated arthritis type symptoms. You have been low on Folic acid in the past when your labs were reviewed and you should take folic acid 1 mg daily. Discharge Disposition: HOME SELF-CARE
== END 2022-11-12 15:01 | disposition home or self-care (01) ==
LOC: EC 10:23 → 6NMEDSUR 14:29
PROVIDERS: ADMIT Internal Medicine; ATTEND Internal Medicine
DX: H53.2 Diplopia (principal); R41.3 Other amnesia; H81.10 Benign paroxysmal vertigo, unspecified ear; R00.2 Palpitations; J44.9 Chronic obstructive pulmonary disease, unspecified; I10 Essential (primary) hypertension; C91.11 Chronic lymphocytic leukemia of B-cell type in remission; R00.1 Bradycardia, unspecified; Z87.891 Personal history of nicotine dependence; Z85.3 Personal history of malignant neoplasm of breast; Z92.21 Personal history of antineoplastic chemotherapy; Z92.3 Personal history of irradiation; Z98.1 Arthrodesis status; Z79.899 Other long term (current) drug therapy; Z79.811 Long term (current) use of aromatase inhibitors; Z79.82 Long term (current) use of aspirin; Z79.51 Long term (current) use of inhaled steroids; Z88.3 Allergy status to other anti-infective agents
CPT/HCPCS: 96361 ×3; 96360; 99285; 36415; 94640 ×6; 95816; 93005; 80061; 80053; 80048; 84443; 82607; 83735 ×2; 84484; 85025 ×2; 85610; 85730; 71046; 70496; 70450; 70498; 70553; G0378 ×4; C8929; Q9950; Q9967; A9585; 93306

== ENCOUNTER 2022-12-19 19:18 | Outpatient (CLI) | payer MEDICARE, BC | END 2022-12-20 06:05 | disposition home or self-care (01) | LOC: 3 N SLEEP 19:18 | PROVIDERS: ATTEND Internal Medicine | DX: G47.33 Obstructive sleep apnea (adult) (pediatric) (principal); Z88.8 Allergy status to other drugs, medicaments and biological substances; Z88.6 Allergy status to analgesic agent; Z87.891 Personal history of nicotine dependence | CPT/HCPCS: 95811 ==

== ENCOUNTER → 2023-04-03 | Outpatient (CLI) | payer MEDICARE, BC ==
--- NOTE | 2023-04-04 19:16 | MM ---
Reason for Exam: Screening (asymptomatic). Last screening mammogram was performed 12 month(s) ago. Patient History: Menarche at age 10. First Full-Term at age 20. Hysterectomy at age 37. Postmenopausal. Other cancer, age 66. Breast cancer, left, age 69. 2009, Benign Stereotactic Core Biopsy on the left side. 03/29/2020, Lumpectomy on the Left side. Malignant Core Biopsy. 03/07/2020, Malignant Core Biopsy on the left side. 09/2020, Chemotherapy. 09/2020, Radiation Therapy. Maternal cousin had breast cancer. Sister had breast cancer, age 60. Prior Study Comparison: 10/16/2020 Right Diagnostic Mammogram, [facility]. 03/26/2021 Bilateral Diagnostic Mammogram, [facility]. 03/28/2022 Bilateral MG 3D diag mammo w/cad AYAN, [facility]. Tissue Density: The breast tissue is heterogeneously dense. This may lower the sensitivity of mammography. Findings: Analyzed By CAD. Redemonstrated postsurgical and posttreatment change left breast. Benign secretory and oil cyst calcifications are redemonstrated. There is no suspicious group of microcalcifications or new suspicious mass in either breast. Overall Assessment: Benign, BI-RAD 2 Management: Screening Mammogram of both breasts in 1 year. . Patient should continue monthly self-breast exams. A clinical breast exam by your physician is recommended on an annual basis. This exam should not preclude additional follow-up of suspicious palpable abnormalities. Electronically signed and approved by: Fozia Ruff M.D. Radiologist
== END | disposition home or self-care (01) ==
LOC: RADMAMWWP 12:37
PROVIDERS: ATTEND Internal Medicine Hematology & Oncology
DX: Z12.31 Encounter for screening mammogram for malignant neoplasm of breast (principal); C50.519 Malignant neoplasm of lower-outer quadrant of unspecified female breast; C91.10 Chronic lymphocytic leukemia of B-cell type not having achieved remission; I10 Essential (primary) hypertension; Z71.3 Dietary counseling and surveillance; Z80.3 Family history of malignant neoplasm of breast; Z78.0 Asymptomatic menopausal state
CPT/HCPCS: 77063; 77067

== ENCOUNTER 2023-08-06 17:12 | Emergency (ER) | payer MEDICARE, BC ==
--- NOTE | 2023-08-06 17:44 | ED ---
SOB HPI - General Source: patient, RN notes reviewed Mode of arrival: wheelchair Limitations: no limitations <Rizwana Davenport - Last Filed: 08/06/23 17:42> <Savage Harper - Last Filed: 08/06/23 21:36> - General Chief Complaint: Shortness of Breath Stated Complaint: SOB Time Seen by Provider: 08/06/23 17:29 - History of Present Illness Initial Comments: Trent noteis a 72-year-old female presents emergency department chief complaint of dyspnea. Patient [place] fogging for insects and has been experiencing shortness of breath after this. He endorses a feeling of chest pressure last night. She currently denies chest pain, chest pressure, dizziness, lightheadedness, palpitations. Denies history of heart attack, stroke. No use of blood thinners. (Rizwana Davenport) - Related Data Home Medications Medication Instructions Recorded Confirmed Indapamide [Lozol] 2.5 mg PO DAILY 06/05/16 11/09/22 Meloxicam [Mobic] 15 mg PO HS 03/01/20 11/09/22 amLODIPine [Norvasc] 10 mg PO DAILY 03/01/20 11/09/22 Letrozole [Femara] 2.5 mg PO DAILY 12/29/20 11/09/22 Aspirin 81 mg PO DAILY 06/01/21 11/09/22 Magnesium Oxide [Mag-Ox] 400 mg PO DAILY 06/01/21 11/09/22 Budesonide-Formot 160-4.5 Mcg 2 puff INHALATION RT-BID 11/09/22 11/09/22 [Symbicort 160-4.5 Mcg Inhaler] Cholecalciferol [Vitamin D3 (125 125 mcg PO DAILY 11/09/22 11/09/22 Mcg = 5000 Iu)] Melatonin 10 mg PO HS 11/09/22 11/09/22 Zinc Gluconate [Zinc] 50 mg PO DAILY 11/09/22 11/09/22 Previous Rx's Medication Instructions Recorded Folic Acid 1 mg PO DAILY #0 tab 11/12/22 Allergies Allergy/AdvReac Type Severity Reaction Status Date / Time perfume Allergy Unknown Dyspnea Verified 11/09/22 14:39 nitrofurantoin Allergy Itching Verified 09/02/23 14:39 [From Macrobid] Review of Systems ROS Other: All systems not noted in ROS Statement are negative. <Rizwana Davenoprt - Last Filed: 08/06/23 17:42> ROS Other: All systems not noted in ROS Statement are negative. <Savage Harper - Last Filed: 08/06/23 21:36> ROS Statement: Those systems with pertinent positive or pertinent negative responses have been documented in the HPI. Past Medical History Past Medical History: Cancer, COPD, Hypertension, Osteoarthritis (OA) Additional Past Medical History / Comment(s): HX DIVERTICULOSIS AND COLITIS, DDD, leukemia dx. 3 1/2 yrs. ago-Dr. Hartmann monitors but has had no chemo/radiation, had Covid in 2019, dx. breast cancer 2020-had surg, chemo & radiation History of Any Multi-Drug Resistant Organisms: None Reported Past Surgical History: Appendectomy, Hernia Repair, Hysterectomy, Joint Re placement, Tonsillectomy, Tubal Ligation Additional Past Surgical History / Comment(s): UMB. HERNIA WITH MESH., AYAN KNEE REPLACEMENTS, AYAN CATARACTS, egd, cervical fusion, left breast lumpectomy, right should replaced Past Anesthesia/Blood Transfusion Reactions: No Reported Reaction Past Psychological History: No Psychological Hx Reported Smoking Status: Former smoker Past Alcohol Use History: None Reported Past Drug Use History: None Reported - Past Family History Mother Family Medical History: Cancer Additional Family Medical History / Comment(s): Brain CA Father Family Medical History: COPD, CVA/TIA, Hyperlipidemia, Hypertension, Myocardial Infarction (ID) <Rizwana Davenport - Last Filed: 08/06/23 17:42> General Exam Limitations: no limitations <Rizwana Davenport - Last Filed: 08/06/23 17:42> - General Exam Comments Initial Comments: Visual Physical Exam Vital signs reviewed General: Well-appearing, nontoxic, no acute distress. Head: Normocephalic, atraumatic Eyes: PERRLA, EOMI ENT: Airway patent Chest: Nonlabored breathing Skin: No visual rash, normal skin tone Neuro: Alert and oriented 3 Musculoskeletal: No gross abnormalities (Stieler,Rizwana) Course Vital Signs 08/06/23 08/06/23 08/06/23 17:17 19:41 20:25 Temperature 98.2 F Pulse Rate 59 L 65 67 Respiratory 18 16 Rate Blood Pressure 139/66 127/83 O2 Sat by Pulse 97 95 Oximetry 08/06/23 20:33 Temperature Pulse Rate 73 Respiratory Rate Blood Pressure O2 Sat by Pulse Oximetry Medical Decision Making <Rizwana Davenport - Last Filed: 08/06/23 17:42> - Lab Data Result diagrams: 08/06/23 19:05 08/06/23 19:05 - EKG Data -: EKG Interpreted by Me (EKG is sinus 67 ID [id number] QRS 93 QTc 408) <Savage Harper - Last Filed: 08/06/23 21:36> - Medical Decision Making I completed the quick note portion of this chart signed Rizwana Davenport PA-C (Rizwana Davenport) - Lab Data Lab Results 08/06/23 08/06/23 08/06/23 Range/Units 19:05 19:05 19:05 WBC 10.7 H (3.8-10.6) k/uL RBC 4.45 (3.80-5.40) m/uL Hgb 13.8 (11.4-16.0) gm/dL Hct 43.6 (34.0-46.0) % MCV 98.0 (80.0-100.0) fL MCH 31.0 (25.0-35.0) pg MCHC 31.6 (31.0-37.0) g/dL RDW 12.2 (11.5-15.5) % Plt Count 276 (150-450) k/uL MPV 7.3 Neutrophils % 67 % Lymphocytes % 18 % Monocytes % 8 % Eosinophils % 3 % Basophils % 1 % Neutrophils # 7.2 (1.3-7.7) k/uL Lymphocytes # 2.0 (1.0-4.8) k/uL Monocytes # 0.9 (0-1.0) k/uL Eosinophils # 0.3 (0-0.7) k/uL Basophils # 0.1 (0-0.2) k/uL PT 10.9 (10.0-12.5) sec INR 1.0 (<1.2) APTT 25.5 (22.0-30.0) sec Sodium 138 (137-145) mmol/L Potassium 4.5 (3.5-5.1) mmol/L Chloride 106 (98-107) mmol/L Carbon Dioxide 26 (22-30) mmol/L Anion Gap 6 mmol/L BUN 28 H (7-17) mg/dL Creatinine 0.74 (0.52-1.04) mg/dL Est GFR (CKD-EPI)AfAm >90 (>60 ml/min/1.73 sqM) Est GFR (CKD-EPI)NonAf 81 (>60 ml/min/1.73 sqM) Glucose 104 H (74-99) mg/dL Calcium 9.7 (8.4-10.2) mg/dL Magnesium 2.2 (1.6-2.3) mg/dL Total Bilirubin 0.5 (0.2-1.3) mg/dL AST 31 (14-36) U/L ALT 24 (4-34) U/L Alkaline Phosphatase 106 (38-126) U/L Troponin I (0.000-0.034) ng/mL NT-Pro-B Natriuret Pep pg/mL Total Protein 7.2 (6.3-8.2) g/dL Albumin 4.4 (3.5-5.0) g/dL 08/06/23 08/06/23 Range/Units 19:05 19:05 WBC (3.8-10.6) k/uL RBC (3.80-5.40) m/uL Hgb (11.4-16.0) gm/dL Hct (34.0-46.0) % MCV (80.0-100.0) fL MCH (25.0-35.0) pg MCHC (31.0-37.0) g/dL RDW (11.5-15.5) % Plt Count (150-450) k/uL MPV Neutrophils % % Lymphocytes % % Monocytes % % Eosinophils % % Basophils % % Neutrophils # (1.3-7.7) k/uL Lymphocytes # (1.0-4.8) k/uL Monocytes # (0-1.0) k/uL Eosinophils # (0-0.7) k/uL Basophils # (0-0.2) k/uL PT (10.0-12.5) sec INR (<1.2) APTT (22.0-30.0) sec Sodium (137-145) mmol/L Potassium (3.5-5.1) mmol/L Chloride (98-107) mmol/L Carbon Dioxide (22-30) mmol/L Anion Gap mmol/L BUN (7-17) mg/dL Creatinine (0.52-1.04) mg/dL Est GFR (CKD-EPI)AfAm (>60 ml/min/1.73 sqM) Est GFR (CKD-EPI)NonAf (>60 ml/min/1.73 sqM) Glucose (74-99) mg/dL Calcium (8.4-10.2) mg/dL Magnesium (1.6-2.3) mg/dL Total Bilirubin (0.2-1.3) mg/dL AST (14-36) U/L ALT (4-34) U/L Alkaline Phosphatase (38-126) U/L Troponin I <0.012 (0.000-0.034) ng/mL NT-Pro-B Natriuret Pep 327 pg/mL Total Protein (6.3-8.2) g/dL Albumin (3.5-5.0) g/dL Disposition <Rizwana Davenport - Last Filed: 08/06/23 17:42> Is patient prescribed a controlled substance at d/c from ED?: No Time of Disposition: 21:00 <Savage Harper - Last Filed: 08/06/23 21:36> Clinical Impression: COPD (chronic obstructive pulmonary disease) Disposition: HOME SELF-CARE Condition: Good Instructions (If sedation given, give patient instructions): Acute Bronchitis (ED) Referrals: Megan Pepe MD [Primary Care Provider] - 1-2 days
[2023-08-06 17:49] VITALS: TEMP 98.2
--- NOTE | 2023-08-06 18:25 | XR ---
EXAMINATION TYPE: XR chest 2V DATE OF EXAM: 08/06/2023 COMPARISON: 11/09/2022 INDICATION: Difficulty breathing and short of breath TECHNIQUE: Frontal and lateral views of the chest are obtained. FINDINGS: The heart size is normal. The pulmonary vasculature is normal. The lungs are clear. IMPRESSION: 1. No acute pulmonary process.
[2023-08-06 19:26] LABS: Basophils # (A) 0.1 k/uL (0-0.2); Basophils % (A) 1 %; Eosinophils # (A) 0.3 k/uL (0-0.7); Eosinophils % (A) 3 %; HCT 43.6 % (34.0-46.0); HGB 13.8 gm/dL (11.4-16.0); Lymphocytes % (A) 18 %; MCHC 31.6 g/dL (31.0-37.0); Mean Platelet Volume 7.3; Monocytes # (A) 0.9 k/uL (0-1.0); Monocytes % (A) 8 %; Neutrophils # (A) 7.2 k/uL (1.3-7.7); Neutrophils % (A) 67 %; Platelet Count 276 k/uL (150-450); RBC 4.45 m/uL (3.80-5.40); RDW 12.2 % (11.5-15.5); WBC 10.7 k/uL (3.8-10.6)
[2023-08-06] MEDS: methylPREDNISolone SOD SUCCI 125 MG/2 ML VIAL IV STA (19:35)
[2023-08-06] MEDS: LORazepam 2 MG/ML INJ IV STA (19:36)
[2023-08-06 19:37] LABS: Partial Thromboplastin Time 25.5 sec (22.0-30.0); Prothrombin Time 10.9 sec (10.0-12.5)
[2023-08-06] MEDS: SODIUM CHLORIDE 0.9% 1,000 ML IV STA (19:49)
[2023-08-06 20:01] LABS: ALT 24 U/L (4-34); AST 31 U/L (14-36); African American GFR (CKD) >90 (>60 ml/min/1.73 sqM); Albumin 4.4 g/dL (3.5-5.0); Alkaline Phosphatase 106 U/L (38-126); Anion Gap 6 mmol/L; Blood Urea Nitrogen 28 mg/dL (7-17); Calcium 9.7 mg/dL (8.4-10.2); Carbon Dioxide 26 mmol/L (22-30); Chloride 106 mmol/L (98-107); Glucose 104 mg/dL (74-99); Magnesium 2.2 mg/dL (1.6-2.3); Non-African American GFR(CKD) 81 (>60 ml/min/1.73 sqM); Potassium 4.5 mmol/L (3.5-5.1); Sodium 138 mmol/L (137-145); Total Bilirubin 0.5 mg/dL (0.2-1.3); Total Protein 7.2 g/dL (6.3-8.2)
[2023-08-06] MEDS: IPRATROPIUM-ALBUTEROL 3 ML NEB INHALATION STA (20:24)
[2023-08-06 22:34] VITALS: BP 129/74; PULSE 64; RESP 18
== END 2023-08-06 22:17 | disposition home or self-care (01) ==
LOC: EC 17:12
DX: J44.9 Chronic obstructive pulmonary disease, unspecified (principal); Z87.891 Personal history of nicotine dependence; Z86.16 Personal history of COVID-19; Z88.1 Allergy status to other antibiotic agents; Z91.048 Other nonmedicinal substance allergy status
CPT/HCPCS: 36415; 94640; 93005; 83880; 80053; 83735; 84484; 85025; 85610; 85730; 71046; 99285; 96374; 96375; 96361 ×3; J2060; J2919

== ENCOUNTER → 2023-11-06 | Outpatient (CLI) | payer MEDICARE, BC ==
[2023-11-06 16:11] VITALS: BP 122/62; PULSE 70; RESP 16; TEMP 97.9
--- NOTE | 2023-11-06 17:01 | P.PROGSL ---
Subjective DATE: 11/06/2023 FOLLOW UP VISIT. Patient with obstructive sleep apnea hypopnea syndrome return to sleep center for follow-up visit. Recently patient had sleep study which documented obstructive sleep apnea hypopnea syndrome. Patient was initiated on PAP therapy and today is first visit after treatment was started. I explained results of sleep studies to the patient in details. Patient was able to use PAP equipment every night for the whole night. Patient has some discomfort related to your mask because of leak. She also has dryness in the mouth. Patient is using nasal under the nose mask [employer]. [place] sleepiness scale is 1, which is perfect. I checked information from PAP unit. PAP unit pressure 5-11, average 10.7 cm H2O. Usage is 100% and 93% for more then 4 hours, average 7 hours per night. Leak is increased to 33.6 l/m. Apnea Hypopnea Index is 3.0, which is normal. Patient experiencing restless leg symptoms and possibly periodic limb movement symptoms. During titration patient had 83.9 periodic limb movements per hour. MEDICATIONS: Please see below During physical exam: GENERAL: A pleasant patient without any distress. VITAL SIGNS: Please see below, weight 214.6 pounds. HEENT: PERRLA, EOMI.low position of soft palate, Mallapati 4 . NECK: Supple. No JVD. LUNGS: Clear to percussion and to auscultation. Good air exchange. No wheezing or rhonchi. HEART: S1, S2 regular. ABDOMEN: Soft and nontender.[] EXTREMITIES: No clubbing or cyanosis. SCRAP KETTLE TENDER: Awake, alert, and oriented x3. No focal deficit. Impressions: 1. Obstructive sleep apnea-hypopnea syndrome. Patient demonstrated great compliance with treatment, benefiting from treatment. 2. Periodic limb movement syndrome. 3. Restless leg symptoms. 4. Hypertension. 5. History of left breast cancer treated by lumpectomy, radiation and chemotherapy in 2020. 6. Status post bilateral knee replacement. 7. Status post right shoulder replacement. 8. Status post neck fusion surgery. I teach patient how to adjust level of humidity, however of humidity was increased to 5. Plan: 1. Continue using PAP equipment every night for the whole night. Prescription for different type of nasal pillows AirFit P10. 2. To change air filter at least 1-2 times per month. 3. PAP unit should stay lower then position of the head. 4. Advised patient to remove all remaining water from humidifier canister daily and make it dry after each usage. Refill canister with fresh distilled water before each usage. 5. Sleep hygiene with regular time in bed for at least 8 hours. 6. Precautions related to driving. No driving if feel any sleepiness. 7. I will maintain prescription for PAP supplies including mask, tube, filters. 8. Follow up visit in 6 months or earlier if patient has any problems. 9. Watching weight. 10. Patient will be started on treatment with lowest dose of dopaminergic agonist Mirapex 0.125 mg 1 to 2 tablets at bedtime. Thank you very much for allowing me to participate in the management of your patient. Cralos Betancourt MD, PhD, FAASM. Diplomat of [place] [employer], Sleep Medicine Board by [place] [employer] [facility] cc: Megan Pepe MD Objective - Vital Signs Vital Signs: Vital Signs Temp 97.9 F 11/06/23 16:10 Pulse 70 11/06/23 16:10 Resp 16 11/06/23 16:10 BP 122/62 11/06/23 16:10 Pulse Ox 96 11/06/23 16:10 FiO2 Intake & Output 11/05/23 11/06/23 11/06/23 18:59 06:59 18:59 Weight 97.069 kg Home Medications: Home Medications Medication Instructions Recorded Confirmed Type Meloxicam [Mobic] 15 mg PO HS 03/01/20 11/06/23 History amLODIPine [Norvasc] 10 mg PO DAILY 03/01/20 11/06/23 History Letrozole [Femara] 2.5 mg PO DAILY 12/29/20 11/06/23 History Aspirin 81 mg PO DAILY 06/01/21 11/06/23 History Magnesium Oxide [Mag-Ox] 400 mg PO DAILY 06/01/21 11/06/23 History Budesonide-Formot 160-4.5 Mcg 2 puff INHALATION RT-BID 11/09/22 11/06/23 History [Symbicort 160-4.5 Mcg Inhaler] Cholecalciferol [Vitamin D3 (125 125 mcg PO DAILY 11/09/22 11/06/23 History Mcg = 5000 Iu)] Melatonin 10 mg PO HS 11/09/22 11/06/23 History Zinc Gluconate [Zinc] 50 mg PO DAILY 11/09/22 11/06/23 History Folic Acid 1 mg PO DAILY #0 tab 11/12/22 11/06/23 Rx Doxepin [SINEquan] 5 mg PO HS 11/06/23 11/06/23 History
== END ==
LOC: 3 N SLEEP 15:50
PROVIDERS: ATTEND Internal Medicine
CPT/HCPCS: 99212

== ENCOUNTER → 2024-06-01 | Outpatient (CLI) | payer MEDICARE, OTHER ==
--- NOTE | 2024-06-01 14:07 | MM ---
Reason for Exam: Screening (asymptomatic). Last mammogram was performed 1 year(s) and 2 month(s) ago. Patient History: Menarche at age 10. First Full-Term at age 20. Hysterectomy at age 37. Postmenopausal. Other cancer, age 66. Breast cancer, left, age 69. 2010, Benign Stereotactic Core Biopsy on the left side. 03/29/2020, Lumpectomy on the Left side. Malignant Core Biopsy. 03/07/2020, Malignant Core Biopsy on the left side. 09/2020, Chemotherapy. 09/2020, Radiation Therapy. Maternal cousin had breast cancer. Sister had breast cancer, age 60. Prior Study Comparison: 03/26/2021 Bilateral Diagnostic Mammogram, [facility]. 03/28/2022 Bilateral MG 3D diag mammo w/cad AYAN, [facility]. 04/03/2023 Bilateral MG 3D screening mammo w/cad, [facility]. Tissue Density: The breasts are heterogeneously dense, which may obscure small masses. Findings: Analyzed By CAD. Postoperative changes involving the left breast. Surgical clip. Benign appearing calcifications. Chronic nodularity in the right breast. A new asymmetric density in the subareolar portion right breast. No evidence of suspicious microcalcifications. Overall Assessment: Incomplete: need additional imaging evaluation, BI-RAD 0 Management: Special View Mammogram of the right breast. . Patient should continue monthly self-breast exams. A clinical breast exam by your physician is recommended on an annual basis. This exam should not preclude additional follow-up of suspicious palpable abnormalities. Note on Veronica scores and lifetime risk: 1. A Veronica score greater than 3% is considered moderate risk. If this is the case, consider specialist referral to assess eligibility for a risk reducing agent. 2. If overall lifetime risk for the development of breast cancer is 20% or higher, the patient may qualify for future screening with alternating mammogram and breast MRI. [facility], , 06/01/2024 2:04 PM. Electronically signed and approved by: Atif Veloz M.D. Radiologis
== END | disposition home or self-care (01) ==
LOC: RADMAMWWP 13:07
PROVIDERS: ATTEND Internal Medicine Hematology & Oncology
DX: Z12.31 Encounter for screening mammogram for malignant neoplasm of breast (principal); R92.333 Mammographic heterogeneous density, bilateral breasts; Z78.0 Asymptomatic menopausal state; Z80.3 Family history of malignant neoplasm of breast
CPT/HCPCS: 77063; 77067

== ENCOUNTER → 2024-06-08 | Outpatient (CLI) | payer MEDICARE, OTHER ==
--- NOTE | 2024-06-08 13:12 | MM ---
Reason for Exam: Additional evaluation requested from abnormal screening. Last screening mammogram was performed less than 1 month ago. Patient History: Menarche at age 10. First Full-Term at age 20. Hysterectomy at age 37. Postmenopausal. Other cancer, age 66. Breast cancer, left, age 69. 2009, Benign Stereotactic Core Biopsy on the left side. 03/29/2020, Lumpectomy on the Left side. Malignant Core Biopsy. 03/07/2020, Malignant Core Biopsy on the left side. 09/2020, Chemotherapy. 09/2020, Radiation Therapy. Maternal cousin had breast cancer. Sister had breast cancer, age 60. Prior Study Comparison: 03/28/2022 Bilateral MG 3D diag mammo w/cad AYAN, [facility]. 04/03/2023 Bilateral MG 3D screening mammo w/cad, [facility]. 06/01/2024 Bilateral MG 3D screening mammo w/cad, [facility]. Tissue Density: Right: The breasts are heterogeneously dense, which may obscure small masses. Findings: Analyzed By CAD. 2 nodular densities persist right breast one at the 12:00 location and the second at 11:00. The nodules measure approximately 5 to 6 mm each and are approximately 4 cm from the nipple. Ultrasound is recommended. Overall Assessment: Incomplete: need additional imaging evaluation, BI-RAD 0 Management: Diagnostic Breast Ultrasound of the right breast. . Results were given to the patient verbally at the time of exam. Patient should continue monthly self-breast exams. A clinical breast exam by your physician is recommended on an annual basis. This exam should not preclude additional follow-up of suspicious palpable abnormalities. Note on Veronica scores and lifetime risk: 1. A Veronica score greater than 3% is considered moderate risk. If this is the case, consider specialist referral to assess eligibility for a risk reducing agent. 2. If overall lifetime risk for the development of breast cancer is 20% or higher, the patient may qualify for future screening with alternating mammogram and breast MRI. [facility], , 06/08/2024 1:10 PM. Electronically signed and approved by: Ovidio Tamayo M.D. Radiologis
--- NOTE | 2024-06-08 13:44 | USB ---
Reason for Exam: Additional evaluation requested from abnormal screening. Patient History: Menarche at age 10. First Full-Term at age 20. Hysterectomy at age 37. Postmenopausal. Other cancer, age 66. Breast cancer, left, age 69. 2009, Benign Stereotactic Core Biopsy on the left side. 03/29/2020, Lumpectomy on the Left side. Malignant Core Biopsy. 03/07/2020, Malignant Core Biopsy on the left side. 09/2020, Chemotherapy. 09/2020, Radiation Therapy. Maternal cousin had breast cancer. Sister had breast cancer, age 60. Technique: Method: Targeted. Prior Study Comparison: 03/28/2022 Bilateral MG 3D diag mammo w/cad AYAN, [facility]. 04/03/2023 Bilateral MG 3D screening mammo w/cad, [facility]. 06/01/2024 Bilateral MG 3D screening mammo w/cad, [facility]. Findings: The upper section of the breast of the right breast, the axilla of the right breast and the retroareolar of the right breast were scanned. 2 simple appearing cysts are noted. There is a simple cyst at the 12:00 position right breast 4 cm from the nipple measuring 5 x 5 mm. Additional simple cyst is noted at 11:00 4 cm from the nipple measuring 5 x 2 mm. No solid masses are detected. Overall Assessment: Benign, BI-RAD 2 Management: Diagnostic Mammogram of both breasts in 1 year. A clinical breast exam by your physician is recommended on an annual basis and results should be correlated with mammographic findings. This exam should not preclude additional follow-up of suspicious palpable abnormalities. Results were given to the patient verbally at the time of exam. [facility], , 06/08/2024 1:41 PM. Electronically signed and approved by: Ovidio Tamayo M.D. Radiologis
== END | disposition home or self-care (01) ==
LOC: RADMAMWWP 12:41
PROVIDERS: ATTEND Internal Medicine Hematology & Oncology
DX: R92.8 Other abnormal and inconclusive findings on diagnostic imaging of breast (principal); R92.331 Mammographic heterogeneous density, right breast; Z78.0 Asymptomatic menopausal state; Z80.3 Family history of malignant neoplasm of breast; Z85.3 Personal history of malignant neoplasm of breast
CPT/HCPCS: 77065; 76642; G0279; 77061

== ENCOUNTER → 2024-06-09 | Outpatient (CLI) | payer MEDICARE, OTHER ==
[2024-06-09 15:10] VITALS: BP 128/73; PULSE 82; RESP 16; TEMP 97.5
--- NOTE | 2024-06-09 15:31 | P.PROGSL ---
Subjective DATE: 06/09/2024 FOLLOW UP VISIT. Patient with obstructive sleep apnea hypopnea syndrome return to sleep center for follow-up visit. Information from previous visit have been reviewed. Patient is using PAP equipment every night for the whole night, getting PAP supplies in time. The patient does not have significant problems with the mask, PAP unit and humidification. [place] sleepiness scale is 3, which is normal. I checked information from PAP unit. PAP unit pressure 5-11, average 10.4 cm H2O. Usage is 100% for more then 4 hours, average 7.3 hours per night. Leak is 36 l/m, which is in acceptable range. Apnea Hypopnea Index is 2.6, which is normal. MEDICATIONS have been reviewed, please see below. During physical exam: GENERAL: A pleasant patient without any distress. VITAL SIGNS: Please see below, weight is 218 lbs. HEENT: PERRLA, EOMI.low position of soft palate, Mallapati 4 . NECK: Supple. No JVD. LUNGS: Clear to percussion and to auscultation. Good air exchange. No wheezing or rhonchi. HEART: S1, S2 regular. ABDOMEN: Soft and nontender.[] EXTREMITIES: No clubbing or cyanosis. PERSONAL [employer] SPECIALIST: Awake, alert, and oriented x3. No focal deficit. Impressions: 1. Obstructive sleep apnea-hypopnea syndrome. Patient demonstrated great compliance with treatment, benefiting from treatment. 2. Restless leg symptoms, improved on treatment with Mirapex. 3. Periodic limb movements. 4. Hypertension. 5. Status post treatment of left breast cancer with lumpectomy, radiation and chemotherapy in 2020. 6. Status post bilateral knee replacement. 7. Status post right shoulder replacement. 8. Status post neck fusion surgery. Plan: 1. Continue using PAP equipment every night for the whole night. 2. Sleep hygiene with regular time in bed for at least 7.5-8 hours 3. PAP unit should stay lower then position of the head. 4. Advised patient to remove all remaining water from humidifier canister daily and make it dry after each usage. Refill canister with fresh distilled water before each usage. 5. Watching weight. 6. Precautions related to driving. No driving if feel any sleepiness. 7. I will maintain prescription for PAP supplies including mask, tube, filters. 8. Follow up visit in 8 months or earlier if patient has any problems. 9. Continue Mirapex 0.125 mg 1 to 2 tablets at bedtime. 10. I gave patient nasal mask Franco for the trial. Thank you very much for allowing me to participate in the management of your patient. Carlos Betancourt MD, PhD, FAASM. Diplomat of [employer] [place] [employer], Sleep Medicine Board by [employer] [facility] [place] cc: Megan Pepe MD Objective - Vital Signs Vital Signs: Vital Signs Temp 97.5 F L 06/09/24 15:09 Pulse 82 06/09/24 15:09 Resp 16 06/09/24 15:09 BP 128/73 06/09/24 15:09 Pulse Ox 95 06/09/24 15:09 FiO2 Intake & Output 06/08/24 06/09/24 06/09/24 18:59 06:59 18:59 Weight 98.883 kg Home Medications: Home Medications Medication Instructions Recorded Confirmed Type Meloxicam [Mobic] 15 mg PO HS 03/01/20 06/09/24 History amLODIPine [Norvasc] 10 mg PO DAILY 03/01/20 06/09/24 History Letrozole [Femara] 2.5 mg PO DAILY 12/29/20 11/06/23 History Aspirin 81 mg PO DAILY 06/01/21 11/06/23 History Magnesium Oxide [Mag-Ox] 400 mg PO DAILY 06/01/21 06/09/24 History Budesonide-Formot 160-4.5 Mcg 2 puff INHALATION RT-BID 11/09/22 11/06/23 History [Symbicort 160-4.5 Mcg Inhaler] Cholecalciferol [Vitamin D3 (125 125 mcg PO DAILY 11/09/22 06/09/24 History Mcg = 5000 Iu)] Melatonin 10 mg PO HS 11/09/22 06/09/24 History Zinc Gluconate [Zinc] 50 mg PO DAILY 11/09/22 06/09/24 History Folic Acid 1 mg PO DAILY #0 tab 11/12/22 06/09/24 Rx Doxepin [SINEquan] 5 mg PO HS 11/06/23 06/09/24 History Furosemide [Lasix] 20 mg PO DAILY 06/09/24 06/09/24 History Pramipexole [Mirapex] 0.125 mg PO HS 06/09/24 06/09/24 History Rosuvastatin Calcium 10 mg PO DAILY 06/09/24 06/09/24 History
== END ==
LOC: 3 N SLEEP 14:51
PROVIDERS: ATTEND Internal Medicine
DX: G47.33 Obstructive sleep apnea (adult) (pediatric) (principal); G25.81 Restless legs syndrome; G47.61 Periodic limb movement disorder; I10 Essential (primary) hypertension; Z85.3 Personal history of malignant neoplasm of breast; Z51.0 Encounter for antineoplastic radiation therapy; Z47.1 Aftercare following joint replacement surgery; Z96.651 Presence of right artificial knee joint; Z98.1 Arthrodesis status; Z87.891 Personal history of nicotine dependence; Z88.1 Allergy status to other antibiotic agents; Z88.8 Allergy status to other drugs, medicaments and biological substances
CPT/HCPCS: 99212

== ENCOUNTER → 2024-09-24 | Outpatient (CLI) | payer MEDICARE, OTHER ==
--- NOTE | 2024-09-27 08:04 | BD ---
EXAMINATION TYPE: Axial Bone Density DATE OF EXAM: 09/24/2024 CLINICAL HISTORY: 74 years old Female. ICD-10 CODE: M81.0 OSTEOPENIA , Additional History: Height: 5 ft 4 1/2 in Weight: 212 FRAX RISK QUESTIONS: Alcohol (3 or more units per day): no Family History (Parent hip fracture): no Glucocorticoids (More than 3mos): no (Ex: prednisone, prednisolone, methylprednisolone, dexamethasone, and hydrocortisone). History of Fracture in Adulthood: no Secondary Osteoporosis: 1. Type 1 Diabetes: no 2. Hyperthyroidism: no 3. Menopause before 45: yes 4. Malnutrition: no 5. Chronic liver disease: no Rheumatoid Arthritis: yes Current Tobacco Use: no RISK FACTORS HISTORY OF: Surgery to Spine/Hip(right/left)/Wrist (right/left): no MEDICATIONS: Thyroid Medications: none Osteoporosis Medications: none EXAM MEASUREMENTS: Bone mineral densitometry was performed using the [employer] System. Bone mineral density as measured about the Lumbar spine is: ----- L1-L4(G/cm2): 1.683 T Score Values are as follows: ----- L1: 2.9 ----- L2: 3.4 ----- L3: 5.1 ----- L4: 5.2 ----- L1-L4: 4.2 Z Score Values are as follows: ----- L1: 3.6 ----- L2: 4.1 ----- L3: 5.8 ----- L4: 5.9 ----- L1-L4: 4.9 Bone mineral density has: decreased -1.4 % since study of: 2022 Bone mineral density about the R hip (g/cm2): 1.163 Bone mineral density about the L hip (g/cm2): 1.060 T Score values are as follows: -----R Neck: 0.9 -----L Neck: 0.2 -----R Total: -0.2 -----L Total: 0.5 Z Score values are as follows: -----R Neck: 2.2 -----L Neck: 1.5 -----R Total: 0.8 -----L Total: 1.5 Bone mineral density has: decreased -5.3 % since study of: 2022 FRAX%s: The graph provided illustrates a 10.7% chance for a major osteoporotic fx and a 0.8 % chance for the hips probability for fx in 10 years time. IMPRESSION: Normal (Values between +1 and -1 indicate normal bone mass). Consider repeating this study in 5 year s or sooner if there is some new clinical indication. NOTE: T-SCORE=SD OF THE YOUNG ADULT MEAN. [facility], , 09/27/2024 8:02 AM
== END | disposition home or self-care (01) ==
LOC: RADBDWWP 11:18
PROVIDERS: ATTEND Internal Medicine Hematology & Oncology
DX: M81.0 Age-related osteoporosis without current pathological fracture (principal); M85.88 Other specified disorders of bone density and structure, other site; C91.10 Chronic lymphocytic leukemia of B-cell type not having achieved remission; I10 Essential (primary) hypertension; C50.519 Malignant neoplasm of lower-outer quadrant of unspecified female breast; Z71.3 Dietary counseling and surveillance; Z78.0 Asymptomatic menopausal state
CPT/HCPCS: 77080; 83880

== ENCOUNTER → 2024-10-07 | Outpatient (CLI) | payer MEDICARE, OTHER ==
--- NOTE | 2024-10-07 13:35 | US ---
EXAMINATION TYPE: US venous doppler duplex LE LT DATE OF EXAM: 10/07/2024 1:02 PM COMPARISON: NONE CLINICAL INDICATION: Female, 74 years old with history of R60.0 LOCALIZED EDEMA; swollen left leg, gupta s been going on for years, no h/o dvt TECHNIQUE: The lower extremity deep venous system is examined utilizing real time linear array sonog lorin with graded compression, doppler sonography and color-flow sonography. Grayscale, color doppler , spectral doppler imaging performed of the deep veins of the lower extremities FINDINGS: SIDE PERFORMED: Left VESSELS IMAGED: Common Femoral Vein Deep Femoral Vein Greater Saphenous Vein * Femoral Vein Popliteal Vein Small Saphenous Vein * Proximal Calf Veins (* superficial vessels) Left Leg: Negative for DVT; There is normal flow, compressibility, vascular waveforms. called Dr office with neg findings IMPRESSION: No evidence for deep vein thrombosis. [facility], , 10/07/2024 1:33 PM
[2024-10-07 16:41] LABS: Color,BF Orange
[2024-10-07 16:42] LABS: Appearance,BF Bloody; Nucleated Cells, Body Fluid 150 /uL
[2024-10-07 16:44] LABS: Mononuclear WBC,Body Fluid 24 %; Polynuclear WBC,Body Fluid 76 %; Total Cells Counted,Body Fluid 100
[2024-10-08 05:07] LABS: Synovial Fld Crystals None Seen (None Seen)
== END | disposition home or self-care (01) ==
LOC: RADUSWWP 12:45
PROVIDERS: ATTEND Orthopaedic Surgery
DX: R60.0 Localized edema (principal); T84.84XA Pain due to internal orthopedic prosthetic devices, implants and grafts, initial encounter; I80.9 Phlebitis and thrombophlebitis of unspecified site; M25.562 Pain in left knee; Z96.652 Presence of left artificial knee joint
CPT/HCPCS: 85379; 85652; 86140; 87070; 87205; 89050; 89060